=== PATIENT | female | born 1945 | race Caucasian/White ===

== ENCOUNTER 2020-02-08 09:44 | Outpatient (CLI) | payer OTHER, SELFPAY ==
--- NOTE | ~2020-02-08 | MR_ITS ---
EXAMINATION: MR lumbar spine wo con DATE: 02/08/2020 12:36 INDICATION: Low back pain. Bilateral hip pain. TECHNIQUE: Magnetic resonance imaging (MRI) of the lumbar spine was performed without intravenous con trast. Sequences included sagittal T2-weighted FSE, sagittal STIR FSE, sagittal T1-weighted FSE, and axial T2-weighted FSE. COMPARISON: CT abdomen and pelvis 09/08/2014 FINDINGS: There is artifact from a stent graft in abdominal aorta. There are cysts in the kidneys megan suring up to 4.1 cm on the left. There is 9 degrees levocurvature of lumbar spine. Vertebral body hei ghts are normal. There is mildly decreased disc height at L1-L2 and L2-L3 and severely decreased disc height from L3-L4 through L5-S1. The distal spinal cord signal intensity is normal. The conus medull dwayne is at L1-L2. The following disc levels are specifically discussed: L1-L2: The disc is bulging. There is mild bilateral facet joint osteoarthritis. There is mild bilater al neural foraminal stenosis. There is mild central canal stenosis. L2-L3: The disc is bulging. There is moderate right and mild left facet joint osteoarthritis. There i s mild bilateral neural foraminal stenosis. There is mild central canal stenosis. L3-L4: The disc is bulging with superimposed right subarticular zone extrusion. There is mild bilater al facet joint osteoarthritis. There is mild bilateral neural foraminal stenosis. There is mild centr al canal stenosis. L4-L5: The disc is bulging. There is moderate bilateral facet joint osteoarthritis. There is moderate bilateral neural foraminal stenosis. There is mild central canal stenosis. L5-S1: The disc is bulging. There is mild right and severe left facet joint osteoarthritis. There is mild right and moderate left neural foraminal stenosis. There is mild central canal stenosis. IMPRESSION: 1. Severe lumbar spondylosis. Reviewed, dictated and finalized at location A.
== END 2020-02-08 09:45 | disposition home or self-care (01) ==
PROVIDERS: PCP Emergency Medicine; Visit Provider Emergency Medicine
DX: M54.9 Dorsalgia, unspecified (principal); G89.29 Other chronic pain
CPT/HCPCS: 72148

== ENCOUNTER 2020-02-24 09:56 | Outpatient (CLI) | payer OTHER, SELFPAY ==
--- NOTE | ~2020-02-24 | MM_ITS ---
EXAMINATION: MM screening [facility] BI w zainab HISTORY: Screening mammogram TECHNIQUE: Craniocaudal and mediolateral oblique 3-D tomosynthesis images were obtained and synthetic 2-D images were generated. CAD analysis was submitted and interpreted. COMPARISON: 03/07/2019, 02/21/2019, 02/19/2018, 02/15/2017 BREAST PARENCHYMAL COMPOSITION: There are scattered areas of fibroglandular density. FINDINGS: RIGHT BREAST: There is no evidence of suspicious mass, calcification, or architectural distortion to suggest malignancy. There has been no significant interval change. LEFT BREAST: There is a possible mass in the middle third of the breast best appreciated 5 cm from th e nipple on mediolateral oblique tomosynthesis image 33/74. IMPRESSION: 1. Possible left breast mass. 2. Additional mammographic views and possible breast ultrasound are recommended. BI-RADS Category 0: Incomplete: Needs additional imaging evaluation. Reviewed, dictated and finalized at location A. IMPRESSION: 1. Possible left breast mass. 2. Additional mammographic views and possible breast ultrasound are recommended . BI-RADS Category 0: Incomplete: Needs additional imaging evaluation.
== END 2020-02-24 09:57 | disposition home or self-care (01) ==
LOC: ANHIMG 10:02
PROVIDERS: PCP Emergency Medicine; Visit Provider Emergency Medicine
DX: Z12.31 Encounter for screening mammogram for malignant neoplasm of breast (principal); R92.8 Other abnormal and inconclusive findings on diagnostic imaging of breast
CPT/HCPCS: 77063; 77067

== ENCOUNTER 2020-03-16 12:56 | Outpatient (CLI) | payer OTHER, SELFPAY ==
--- NOTE | ~2020-03-16 | MM_ITS ---
EXAMINATION: MM diagnostic mammo unilat LT HISTORY: Possible small breast mass reported in middle third of the breast 5 cm from nipple on MLO To mosynthesis image 33/74 TECHNIQUE: Additional 3-D tomosynthesis images of were performed and synthetic 2-D images were genera lg. CAD analysis was submitted and interpreted. COMPARISON: 02/24/2020 bilateral digital screening mammogram BREAST PARENCHYMAL COMPOSITION: There are scattered areas of fibroglandular density. FINDINGS: No definite reproducible mass is suggested on these supplemental views. 6 month follow-up d iagnostic left mammogram is recommended for confirmation. IMPRESSION: 1. No definite left breast mass is suggested on supplemental views 2. 6 month diagnostic left mammogram follow-up is recommended BI-RADS category 3, probably benign findings. Reviewed, dictated and finalized at location B. [employer] ACCOUNTANT
== END 2020-03-16 12:57 | disposition home or self-care (01) ==
PROVIDERS: PCP Emergency Medicine; Visit Provider Emergency Medicine
DX: R92.8 Other abnormal and inconclusive findings on diagnostic imaging of breast (principal)
CPT/HCPCS: 77065

== ENCOUNTER 2020-07-06 01:15 | Inpatient (IN) | payer OTHER, SELFPAY ==
[2020-07-06] VITALS (21 sets, daily range): BP systolic 104–130; BP diastolic 54–82; PULSE 84–129; RESP 16–30; TEMP 35.6–36.4; O2SAT 96–99; BMI 24.5
--- NOTE | 2020-07-06 | ECHO_ITS ---
Patient Info Name: Desiree Jo Age: 74 years : 1945 Gender: Female Ht: 67 in Wt: 156 lbs BSA: 1.84 m2 HR: 99 bpm BP: 124 / 82 mmHg Heart Rhythm: Sinus Rhythm Technical Quality: Good Exam Date: 07/06/2020 1:20 PM Exam Location: [facility] Patient Status: Outpatient Admit Date: 07/06/2020 Staff Ordering Physician: Gadiel Andersen MD Pipe Liner: Shereen Sy RDCS Attending Provider: Riya Rubalcava DO Referring Physician: Ganesh LEVI; Exam Type: CA echo dop color flow w con Study Info Indications I50.9 - Heart failure, unspecified Complete two-dimensional, color flow and Doppler transthoracic echocardiogram is performed with contrast to opacify the left ventricle and to improve the deliniation of the left ventricle endocardial borders. Contrast/Agitated Saline Contrast/Ag. Saline: Definity Amount: 1.00 ml Summary 1. Left ventricular chamber dimension is severely enlarged. 2. Left ventricular systolic function is severely reduced, estimated at 15-20%. 3. There is mildly increased left ventricular wall thickness. 4. The left ventricular diastolic function is grade II diastolic dysfunction. 5. Left atrial chamber dimension is severely enlarged. 6. There is moderate mitral valve regurgitation. 7. There is mild tricuspid valve regurgitation. 8. Moderate pulmonary hypertension, estimated pulmonary arterial systolic pressure is 49 mmHg. 9. There is mild pulmonic regurgitation. Left Ventricle Left ventricular chamber dimension is severely enlarged. Left ventricular systolic function is severely reduced, estimated at 15-20%. There is mildly increased left ventricular wall thickness. The left ventricular diastolic function is grade II diastolic dysfunction. Right Ventricle Right ventricular chamber dimension is normal. Right ventricular systolic function is normal. Left Atria Left atrial chamber dimension is severely enlarged. Right Atria Right atrial chamber dimension is normal. Atrial Septum Intact interatrial septum visualized by color flow imaging. Aortic Valve The aortic valve is trileaflet. There is mild aortic valve sclerosis. There is no aortic valve stenosis. There is trace aortic valve regurgitation. Pulmonic Valve The pulmonic valve is normal. There is no pulmonic valve stenosis. There is mild pulmonic regurgitation. Mitral Valve The mitral valve has normal leaflets. There is no mitral valve stenosis. There is moderate mitral valve regurgitation. Tricuspid Valve The tricuspid valve leaflets are normal. There is no significant tricuspid valve stenosis. There is mild tricuspid valve regurgitation. Moderate pulmonary hypertension, estimated pulmonary arterial systolic pressure is 49 mmHg. Pericardium/Pleural The pericardium appears normal. There is trivial pericardial effusion. Inferior Vena Cava Dilated inferior vena cava with >50% collapse upon inspiration consistent with elevated right atrial pressure, 10 mmHg. Aorta The aortic root size at the sinus of Valsalva is normal. There is mild aortic atherosclerosis. Left Ventricular Outflow Tract Name Value Normal LVOT 2D LVOT Diameter
--- NOTE | ~2020-07-06 | XR_ITS ---
EXAMINATION: XR chest 2V DATE: 07/06/2020 01:41 INDICATION: Shortness of breath TECHNIQUE: AP and lateral views of the chest are obtained. COMPARISON: 02/27/2014 FINDINGS: Cardiomegaly is noted. There is a mild diffuse interstitial pattern. Small pleural effusion s are present. There is no pneumothorax. There is moderate thoracic spondylosis. There is a partially imaged endoluminal abdominal aortic stent. IMPRESSION: 1. Cardiomegaly with mild pulmonary edema. Reviewed, dictated and finalized at location A. [employer]
--- NOTE | 2020-07-06 01:20 | ECG_ITS ---
Measurements Intervals [place] Rate: 106 P: 27 ND: 161 QRS: -23 QRSD: 114 T: 142 QT: 348 QTc: 464 Interpretive Statements SINUS TACHYCARDIA LEFT VENTRICULAR HYPERTROPHY AND ST-T CHANGE BORDERLINE R WAVE PROGRESSION, ANTERIOR LEADS BASELINE WANDER- I, III, AVR, AVL, AVF, V4-V6 ABNORMAL ECG Electronically Signed On 07-06-2020 6:54:11 [employer] OPERATOR CABLE by Gary Quiñones D.O.
[2020-07-06 01:59] LABS: Basophils Absolute Auto 0.1 K/mm3 (0.0-0.1); Basophils Percent Auto 0.9 % (0.2-1.2); Eosinophils Absolute Auto 0.2 K/mm3 (0-0.3); Eosinophils Percent Auto 2.6 % (0-4.4); Hematocrit 41.7 % (37.0-47.0); Hemoglobin 13.3 g/dL (12.0-15.0); Immature Granulocyte Absolute 0.06 K/mm3 (0.00-0.031); Immature Granulocyte Percent A 0.7 % (0-0.5); Lymphocytes Absolute Auto 3.41 K/mm3 (0.9-3.2); Mean Corpuscular HGB Conc 31.9 g/dl (32-36); Mean Corpuscular Hemoglobin 30.3 pg (26-34); Mean Platelet Volume 9.4 fl (7.4-10.4); Monocytes Absolute Auto 0.7 K/mm3 (0.1-0.6); Monocytes Percent Auto 7.2 % (2.6-8.5); Neutrophils Absolute Auto 4.8 K/mm3 (1.3-6.7); Neutrophils Percent Auto 51.6 % (45.5-73.1); Platelet Count Result 294 k/mm3 (150-375); Red Blood Count 4.39 M/mm3 (4.2-5.4); Red Cell Distribution Width 14.6 % (11.5-14.5); White Blood Count 9.2 K/mm3 (4.5-10.0)
[2020-07-06 02:04] LABS: Anion Gap 5 mmol/L (8-16); Blood Urea Nitrogen 18 mg/dL (7-17); Calcium 9.8 mg/dL (8.4-10.2); Carbon Dioxide 28 mmol/L (22-30); Chloride 108 mmol/L (98-107); Estimated CRCL calculation 49 ml/min; Estimated Glomerular Filt Rate 54; Glucose 63 mg/dL (65-105); Potassium 3.9 mmol/L (3.4-5.0); Sodium 141 mmol/L (137-145)
[2020-07-06 02:18] LABS: NT Pro B Type Natriuretic Pept 8440 PG/ML (5-100); Troponin I 0.087 ng/mL (0.000-0.034)
[2020-07-06 02:33] LABS: Partial Thromboplastin Time 28.9 SECONDS (22.3-36.8); Prothrombin Time 13.7 Seconds (11.1-14.7)
[2020-07-06] MEDS: FUROSEMIDE INJ 40 MG/4 ML VIAL IV PUSH (02:34)
[2020-07-06 03:58] LABS: Glucose Point of Care 65 (65-105)
--- NOTE | 2020-07-06 04:27 | ED.SOB ---
HPI - SOB/Dyspnea General Chief Complaint: Shortness of Breath/Dyspnea Stated Complaint: congestive heart failure, sob Time Seen by Provider: 07/06/20 01:24 History of Present Illness HPI Narrative: Patient is a 74-year-old female who presents to the ER with shortness of breath. Progressing over the last 2 weeks. No orthopnea. Reports cough that is nonproductive. She is without fevers chills or sweats. It is associated with increased edema to her lower extremities. Reports minor movements cause her to be very dyspneic. No chest pain or chest pressure. Has not found any alleviating factors. Related Data Home Medications Medication Instructions Recorded Confirmed cyclobenzaprine 10 mg tablet See Rx Instructions .ROUTE .COMPLEX 03/10/19 aspirin 81 mg tablet,delayed 81 mg PO DAILY 06/13/19 04/10/20 release sennosides 8.6 mg-docusate sodium See Rx Instructions .ROUTE .COMPLEX 06/13/19 04/10/20 50 mg tablet blood sugar diagnostic #10 each 06/19/19 04/10/20 lancets #50 each 06/19/19 04/10/20 pen needle, diabetic 31 gauge x #1,200 each 06/19/19 04/10/20 5/16 magnesium 200 mg tablet 400 mg PO DAILY tablet 09/16/19 04/10/20 cholecalciferol (vitamin D3) 50 3,000 unit PO DAILY tablet 12/30/19 04/10/20 mcg (2,000 unit) tablet Allergies Allergy/AdvReac Type Severity Reaction Status Date / Time Penicillins Allergy Unknown Verified 01/06/15 10:53 Review of Systems Review of Systems: All systems reviewed & are unremarkable except as noted in HPI and below Constitutional: Constitutional: Denies chills, Denies fever(s) and Denies weakness ENT: Denies nasal congestion and Denies sore throat Cardiovascular: Cardiovascular: Denies chest pain and Denies radiating jaw, neck or arm pain Respiratory: Respiratory: Reports cough, Reports dyspnea and Denies wheezing Gastrointestinal: Gastrointestinal: Denies abdominal pain, Denies diarrhea, Denies nausea and Denies vomiting Musculoskeletal: Musculoskeletal: Denies muscle cramps Comments: edema PMFSH Past Medical History Medical History Diabetes mellitus HLD (hyperlipidemia) HTN (hypertension) Hypothyroidism, acquired PAD (peripheral artery disease) Type 2 diabetes mellitus with hyperglycemia, with long-term current use of insulin Vitamin D deficiency, unspecified Family History Family History Father Family history of alcoholism Family history of congestive heart failure Carcinoma of colon, Onset Age: 64 Mother Family history of liver disease Family history of diabetes mellitus in first degree relative Sibling Family history of diabetes mellitus in first degree relative Other Family history of cardiovascular disease Family history of primary malignant neoplasm of liver Social History Social History Smoking packs per day: 0.5 Smoking cigarettes per day: 10.0 Years smoked: 50 Smoking pack-years: 25.00 Smoking status: Former smoker Smoking end date: 03/01/19 Alcohol intake: current Exam Narrative: Exam Narrative: GENERAL: Well-appearing, well-nourished, and in no acute distress. HEAD: Normocephalic, atraumatic. ENT: Mucous membranes moist. CHEST: Clear to auscultation rales. No respiratory distress. HEART: Regular rate and rhythm. Normal peripheral pulses. ABDOMEN: Soft, nontender, nondistended. EXTREMITIES: Normal range of motion. 2+ edema. SKIN: Warm, dry, no rash. NEURO: Alert and oriented x3. PSYCH: Normal mood and affect. Course Course Emergency Course: Admit to hospitalist service. Started diuresis. Will trend troponins. Vital Signs Vital signs: Vital Signs Temperature 97.5 F L 07/06/20 01:21 Pulse Rate 105 H 07/06/20 01:21 Respiratory Rate 30 H 07/06/20 01:21 Blood Pressure 130/76 07/06/20 01:21 Pulse Oximetry 97 07/06/20
--- NOTE | 2020-07-06 05:39 | ADMGEN ---
This patient, Desiree Jo, was admitted to IMU Room 206-01. Patient/family oriented to hospital policies and general routines including ID bracelet, bed and alarms, visiting hours, pain management, procedures, bathroom and other care routines, personal items, smoking policy, room service/diet, and visiting hours. Information on how to activate the Rapid Response Team has been discussed. Patient/Family are encouraged to report perceived risks to care and to ask questions if they do not understand what they are told or what they should do.
[2020-07-06 06:36] LABS: Troponin I 0.073 ng/mL (0.000-0.034)
--- NOTE | 2020-07-06 08:09 | PM.IMHP ---
H&P: HPI History of Present Illness Date/Time: 07/06/20 08:09 Chief Complaint: SOB Narrative: Desiree Jo is a 74 year old female with PMHx significant for AAA s/p repair, stroke with LLE weakness, t2dm, insulin dependent, HTN, PAD, claudication, peripheral diabetic neuropathy, patient presented to ED due to worsening SOB for the last 4 days or so but has been going on for a while now, dry cough, chest discomfort in the epigastric to mid sternum area at exertion, chest congestion, no near syncope, syncope, light headedness, dizziness, no orthopnea, no pnd, B/L LE ankle edema, no fevers, no rigors, no chills, no n/v/abdominal pain, no palpitations although states can't describe a feeling in her chest , no fevers, no rigors, no chills, no sputum production. Preliminary work up was significant for elevated BNP, mildly elevated Trop, chest xr showed cardiomegaly and lung edema. Review of Systems Review of Systems: Narrative: worsening sob. Constitutional: Comments: no fevers, no rigors, no chills. Eyes: Comments: no vision changes. ENT: Comments: no nasal congestion, no throat pain. Cardiovascular: Comments: sob, chest discomfort, chest congestion. Respiratory: Comments: dry cough. Gastrointestinal: Comments: no n/v/abdominal pain/diarrhea. Musculoskeletal: Comments: LLE weakness Integumentary/Breasts: Comments: no rashes Neurologic: Comments: LLE weakness from old stroke. [facility], LAT[facility] Past Medical History Medical History Diabetes mellitus HLD (hyperlipidemia) HTN (hypertension) Hypothyroidism, acquired PAD (peripheral artery disease) Type 2 diabetes mellitus with hyperglycemia, with long-term current use of insulin Vitamin D deficiency, unspecified Family History Family History Father Family history of alcoholism Family history of congestive heart failure Carcinoma of colon, Onset Age: 64 Mother Family history of liver disease Family history of diabetes mellitus in first degree relative Sibling Family history of diabetes mellitus in first degree relative Other Family history of cardiovascular disease Family history of primary malignant neoplasm of liver Social History Social History Smoking packs per day: 0.5 Smoking cigarettes per day: 10.0 Years smoked: 50 Smoking pack-years: 25.00 Smoking status: Never smoker Smoking end date: 03/01/19 Alcohol intake: never Substance use: never Substance use type: does not use Spiritual care concerns: No Meds Home Medications and Allergies Home Medications Medication Instructions Recorded Confirmed Type cyclobenzaprine 10 mg tablet 10 mg PO DAILY 03/10/19 07/06/20 History aspirin 81 mg tablet,delayed 81 mg PO DAILY 06/13/19 07/06/20 History release blood sugar diagnostic #10 each 06/19/19 07/06/20 History lancets #50 each 06/19/19 07/06/20 History pen needle, diabetic 31 gauge x #1,200 each 06/19/19 07/06/20 History 5/16 magnesium 200 mg tablet 400 mg PO DAILY tablet 09/16/19 07/06/20 History amlodipine 5 mg tablet 5 mg PO DAILY #90 tablet 01/31/20 07/06/20 Rx ascorbic acid (vitamin C) 500 mg PO DAILY 07/06/20 07/06/20 History cilostazol 100 mg PO DAILY 07/06/20 07/06/20 History cyanocobalamin (vitamin B-12) 500 mcg PO DAILY 07/06/20 07/06/20 History diphenhydramine-acetaminophen 3 tablet PO HS PRN 07/06/20 07/06/20 History [Tylenol PM Extra Strength] gabapentin 300 mg PO DAILY 07/06/20 07/06/20 History insulin asp prt-insulin aspart See Rx Instructions .ROUTE .COMPLEX 07/06/20 07/06/20 History [Novolog Mix 70-30FlexPen U-100] levothyroxine 100 mcg PO DAILY 07/06/20 07/06/20 History lisinopril 40 mg PO DAILY 07/06/20 07/06/20 History metformin 1,000 mg tablet 1,000 mg PO QAM 90 Days #90 tablet 07/06/20 07/06/20 Rx metoprolol tartrate 50 mg PO DAILY
[2020-07-06 08:11] LABS: Glucose Point of Care 139 (65-105)
[2020-07-06 08:57] LABS: Troponin I 0.071 ng/mL (0.000-0.034)
--- NOTE | 2020-07-06 09:39 | PM.CNCAR ---
Assessment and Plan Assessment and plan (1) Hypertension associated with diabetes: Code(s): E11.59 - Type 2 diabetes mellitus with other circulatory complications; I15.2 - Hypertension secondary to endocrine disorders Status: Acute Assessment and Plan: Currently at goal. Will continue lisinopril and metoprolol. Will DC amlodipine to allow for blood pressure for other additional medications. (2) Hyperlipidemia associated with type 2 diabetes mellitus: Code(s): E11.69 - Type 2 diabetes mellitus with other specified complication; E78.5 - Hyperlipidemia, unspecified Status: Acute Assessment and Plan: Will increase her rosuvastatin to 10 mg daily (3) PAD (peripheral artery disease): Code(s): I73.9 - Peripheral vascular disease, unspecified Status: Acute Assessment and Plan: Continue aspirin continue statin. Will DC cilostazol given her CHF (4) CHF exacerbation: Code(s): I50.9 - Heart failure, unspecified Status: Acute Assessment and Plan: Probably systolic in etiology although not confirmed. Will check a 2D echocardiogram with Doppler. Intake and output, daily weights. Will transition her from metoprolol tartrate to metoprolol succinate 50 mg p.o. daily because of his CHF indication. Continue lisinopril. Will reduce her IV furosemide to 40 mg IV daily. BMP in the morning. Symptoms are concerning for underlying ischemic cardiomyopathy. Will likely need a cardiac catheterization before discharge or at least an ischemic workup with a perfusion study. Will await the above test results before making that decision. (5) Intermittent claudication of both lower extremities due to atherosclerosis: Code(s): I70.213 - Atherosclerosis of [place] arteries of extremities with intermittent claudication, bilateral legs Status: Acute (6) Nonsustained ventricular tachycardia: Code(s): I47.2 - Ventricular tachycardia Status: Acute Assessment and Plan: Will check a magnesium level (7) Elevated troponin: Code(s): R77.8 - Other specified abnormalities of plasma proteins Status: Acute Assessment and Plan: CHF related versus underlying ischemia versus a combination of both. Continue aspirin, PING-inhibitor, statin, beta-salena. Eventual ischemic workup was detailed above History of Present Illness History of Present Illness Consult date/time: 07/06/20 09:39 Requesting physician: Foster Bellamy MD Consult reason: congestive heart failure Reason For Visit: chf exacerbation Narrative: Date of service 07/06/2020 History: Patient is a 74-year-old female who does have peripheral vascular disease. She has had endovascular repair of an abdominal aortic aneurysm performed by Dr. Parker. She did have a stress test in 2013 in preparation for that procedure which was normal with an ejection fraction 58%. This was personally reviewed and analyzed. She does not routinely see Cardiology. She does have a history of hypertension hyperlipidemia diabetes and hypothyroidism. She presented to the hospital because of worsening shortness of breath and chest pain. Patient describes chest pains at tightness that was across her chest and congestion. It is worsened with exertion. The chest tightness occurred for the past 3-4 days and would be worse if she laid down in also worsen with activity. It would be better if she sat up or rested. It would last for a few minutes. It did not radiate. She has been having worsening shortness of breath also for about the past month. Shortness of breath would occur by doing activities of daily living. About 9 months ago she started to notice that her left leg was heavy and dragging more than what typically would. She has had some swelling in her feet for about 4 months also. She denies any syncope, paroxysmal nocturnal dyspnea, palpitations. Her BNP was elevated at admission she was started on diuretics. She curr
[2020-07-06 09:40] LABS: Magnesium 1.6 mg/dL (1.6-2.3)
[2020-07-06] MEDS: MAGNESIUM OXIDE 400 MG TABLET PO (10:00)
[2020-07-06] MEDS: lisinopriL 20 MG TABLET 40 MG PO (10:00)
[2020-07-06] MEDS: GABAPENTIN 300 MG CAPSULE PO (10:00)
[2020-07-06] MEDS: CYANOCOBALAMIN 500 MCG TABLET PO (10:01)
[2020-07-06] MEDS: ASCORBIC ACID 500 MG TABLET PO (10:01)
[2020-07-06] MEDS: LEVOTHYROXINE SODIUM 100 MCG TABLET PO (10:01)
[2020-07-06] MEDS: ASPIRIN 81 MG ENTERIC TABLET PO (10:01)
[2020-07-06] MEDS: ROSUVASTATIN 10 MG TABLET PO (10:15)
[2020-07-06] MEDS: GLUCOSE ORAL GEL 15 GM OF GLUCSE IN 37.5 GM TUBE PO (12:09)
[2020-07-06 12:45] LABS: Glucose Point of Care 135 (65-105)
[2020-07-06 12:45] LABS: Glucose Point of Care 46 (65-105)
[2020-07-06] MEDS: PERFLUTREN LIPID MICROSPHERES 1.5 ML VIAL DILUTED TO 10 ML TOTAL VOLUME IV PUSH (13:45)
[2020-07-06 17:16] LABS: Glucose Point of Care 166 (65-105)
[2020-07-06 20:13] LABS: Glucose Point of Care 225 (65-105)
[2020-07-06 20:22] LABS: Glucose Point of Care 294 (65-105)
--- NOTE | 2020-07-06 20:32 | ECG_ITS ---
Measurements Intervals [place] Rate: 126 P: -56 CT: 162 QRS: -24 QRSD: 111 T: 133 QT: 322 QTc: 466 Interpretive Statements SUPRAVENTRICULAR TACHYCARDIA, CONSIDER JUNCTIONAL TACHYCARDIA INTRAVENTRICULAR CONDUCTION DELAY DELAYED PRECORDIAL R/S TRANSITION VOLTAGE CRITERIA FOR LVH ST-T WAVE ABNORMALITY IN HIGH LATERAL LEADS- CONSIDER ISCHEMIA ABNORMAL ECG Electronically Signed On 07-07-2020 7:09:25 QUARRYMAN by Gary Quiñones D.O.
[2020-07-06] MEDS: METOPROLOL TARTRATE 50 MG TAB PO (21:31)
[2020-07-07] VITALS (17 sets, daily range): BP systolic 102–144; BP diastolic 66–96; PULSE 87–106; RESP 16–23; TEMP 36.2–36.7; O2SAT 96–100
[2020-07-07 00:45] LABS: Glucose Point of Care 244 (65-105)
[2020-07-07] MEDS: LEVOTHYROXINE SODIUM 100 MCG TABLET PO (06:32)
[2020-07-07 06:39] LABS: Glucose Point of Care 164 (65-105)
[2020-07-07 08:01] LABS: Basophils Absolute Auto 0.1 K/mm3 (0.0-0.1); Basophils Percent Auto 0.9 % (0.2-1.2); Eosinophils Absolute Auto 0.2 K/mm3 (0-0.3); Eosinophils Percent Auto 2.6 % (0-4.4); Hematocrit 43.9 % (37.0-47.0); Hemoglobin 14.1 g/dL (12.0-15.0); Immature Granulocyte Absolute 0.03 K/mm3 (0.00-0.031); Immature Granulocyte Percent A 0.4 % (0-0.5); Lymphocytes Percent Auto 28.4 % (18.3-44.2); Mean Corpuscular HGB Conc 32.1 g/dl (32-36); Mean Corpuscular Hemoglobin 30.1 pg (26-34); Mean Corpuscular Volume 93.6 fl (80-100); Mean Platelet Volume 9.4 fl (7.4-10.4); Monocytes Absolute Auto 0.6 K/mm3 (0.1-0.6); Monocytes Percent Auto 7.3 % (2.6-8.5); Neutrophils Absolute Auto 4.7 K/mm3 (1.3-6.7); Neutrophils Percent Auto 60.4 % (45.5-73.1); Platelet Count Result 290 k/mm3 (150-375); Red Blood Count 4.69 M/mm3 (4.2-5.4); Red Cell Distribution Width 14.7 % (11.5-14.5); White Blood Count 7.8 K/mm3 (4.5-10.0)
[2020-07-07 08:05] LABS: Glucose Point of Care 167 (65-105)
[2020-07-07 08:10] LABS: Alanine Aminotransferase 31 U/L (4-35); Albumin Level 4.3 g/dL (3.5-5.1); Alkaline Phosphatase 108 U/L (38-126); Anion Gap 8 mmol/L (8-16); Aspartate Amino Transferase 27 U/L (14-36); Bilirubin,Total 0.6 mg/dL (0.2-1.3); Blood Urea Nitrogen 19 mg/dL (7-17); Calcium 9.6 mg/dL (8.4-10.2); Carbon Dioxide 27 mmol/L (22-30); Chloride 105 mmol/L (98-107); Cholesterol 205 mg/dL (0-200); Estimated CRCL calculation 43 ml/min; Estimated Glomerular Filt Rate 54; Glucose 182 mg/dL (65-105); HDL Direct 36 mg/dL; Magnesium 1.7 mg/dL (1.6-2.3); Phosphorus 3.3 mg/dL (2.5-4.5); Potassium 4.2 mmol/L (3.4-5.0); Sodium 140 mmol/L (137-145); Triglycerides 136 mg/dL (<150)
[2020-07-07 08:21] LABS: LDL Cholesterol Direct 135 mg/dL
[2020-07-07] MEDS: ASPIRIN 81 MG ENTERIC TABLET PO (08:36)
[2020-07-07] MEDS: GABAPENTIN 300 MG CAPSULE PO (08:36)
[2020-07-07] MEDS: ROSUVASTATIN 10 MG TABLET PO (08:36)
[2020-07-07] MEDS: lisinopriL 20 MG TABLET 40 MG PO (08:36)
[2020-07-07] MEDS: MAGNESIUM OXIDE 400 MG TABLET PO (08:36)
[2020-07-07] MEDS: ASCORBIC ACID 500 MG TABLET PO (08:36)
[2020-07-07] MEDS: METOPROLOL SUCCINATE EXT REL 50 MG TABCR PO (08:36)
[2020-07-07] MEDS: CYANOCOBALAMIN 500 MCG TABLET PO (08:36)
[2020-07-07 08:59] LABS: Hemoglobin A1C 8.1 % (<5.7)
[2020-07-07 10:30] LABS: Free T4 Free Thyroxine Reflex 1.43 ng/dL (0.78-2.19)
--- NOTE | 2020-07-07 10:30 | PM.PNCARD ---
Progress Note: A&P Assessment and Plan (1) Acute CHF (congestive heart failure): Code(s): I50.9 - Heart failure, unspecified Status: Acute Assessment and Plan: Patient presented with acute CHF with reduced ejection fraction, LVEF 15-20%. Patient has had modest improvement in her shortness of breath. On physical examination, she still has some volume overload, and remains orthopneic. -continue beta salena, Isra inhibitor. Consider switching ACEI to ARNI -continue aspirin, statin -patient will need ischemic evaluation. Once patient is euvolemic, she will undergo cardiac catheterization to rule out significant obstructive CAD during this hospitalization. Tentatively scheduled for tomorrow. -continue to monitor on telemetry Subjective Date/time seen: 07/07/20 10:30 Date of service-07/07/2020 Chief complaint: Shortness of breath Interval history: Patient states that she still feels short of breath, although her dyspnea has improved with diuresis. She reports mild lower extremity swelling, predominantly in the left lower extremity. Patient states that she is very anxious, and feels sick to her stomach . Exam Narrative: Exam Narrative: PHYSICAL EXAMINATION: GENERAL: Alert, oriented, no acute distress MENTAL STATUS: Anxious EYES: Extraocular movements intact, no pallor EARS: External ears appear normal, hearing grossly normal NOSE: Normal and patent, no discharge MOUTH: Mucous membranes moist, tongue normal NECK: Supple, JVD CHEST: Scattered crackles at base HEART: Normal rate, regular rhythm, normal S1 and S2, S3 gallop ABDOMEN: Soft, nontender NEUROLOGICAL: Alert, oriented, normal speech, no gross motor deficits MUSCULOSKELETAL: No major deformity, no amputation EXTREMITIES: Trace pedal edema, no clubbing, no cyanosis SKIN: no rash on the exposed area, no cyanosis PSYCHIATRIC: Anxious Objective Data Vital Signs Vital Signs: Vital Signs - 24 hr 07/06/20 12:00 07/06/20 12:05 07/06/20 14:00 Temperature 35.9 C L Pulse Rate 104 H 107 H 101 H Respiratory Rate 18 Blood Pressure 124/82 Pulse Oximetry 99 07/06/20 16:00 07/06/20 17:32 07/06/20 18:00 Temperature 36.0 C L Pulse Rate 110 H 93 104 H Respiratory Rate 20 Blood Pressure 110/61 Pulse Oximetry 99 07/06/20 19:20 07/06/20 20:00 07/06/20 20:48 Temperature 36.4 C Pulse Rate 104 H 129 H 108 H Respiratory Rate 22 H Blood Pressure 125/73 109/64 Pulse Oximetry 97 07/06/20 21:31 07/06/20 21:38 07/07/20 00:00 Temperature 36.2 C L Pulse Rate 108 H 105 H 103 H Respiratory Rate 16 Blood Pressure 106/67 Pulse Oximetry 97 07/07/20 01:56 07/07/20 04:00 07/07/20 06:00 Temperature 36.4 C Pulse Rate 96 90 100 Respiratory Rate 16 Blood Pressure 102/94 H Pulse Oximetry 98 07/07/20 08:00 07/07/20 08:08 07/07/20 08:36 Temperature 36.5 C Pulse Rate 103 H 106 H 98 Respiratory Rate 20 Blood Pressure 144/96 H Pulse Oximetry 100 07/07/20 10:00 Temperature Pulse Rate 98 Respiratory Rate Blood Pressure Pulse Oximetry Intake/Output Intake/Output: Intake & Output 07/04/20 07/05/20 07/06/20 07/07/20 23:59 23:59 23:59 23:59 Intake Total 1290 Output Total 300 400 Balance 990 -400 Meds/Results Medications: Active Medications Generic Name Dose Route Start Last Admin Trade Name Freq PRN Reason Stop Dose Admin Acetaminophen 650 mg 07/06/20 04:28 Acetaminophen 325 Mg Tablet PO Q4H PRN Mild Pain (1-3) or Fever Hydrocodone Bitart/Acetaminophen 1 tab 07/06/20 04:28 Hydrocodone/Acetaminophen (*Crx) 5-325 Mg Tablet PO Q4H PRN Pain Rated 4-6 Ascorbic Acid 500 mg 07/06/20 09:00 07/07/20 08:36 Ascorbic Acid 500 Mg Tablet PO 500 mg DAILY KIARRA Administration Aspirin 81 mg 07/06/20 09:00 07/07/20 08:36 Aspirin 81 Mg Enteric Tablet PO 81 mg DAILY KIARRA Administration Cyanocobalamin 500 mcg
[2020-07-07 11:19] LABS: Total Triiodothyronine (T3) 1.21 NG/ML (0.97-1.69)
[2020-07-07] MEDS: FUROSEMIDE INJ 40 MG/4 ML VIAL IV PUSH (11:34)
[2020-07-07 12:31] LABS: Glucose Point of Care 232 (65-105)
[2020-07-07] MEDS: INSULIN ASPART (*BKC) 100 UNITS/ML SUB-Q (13:06)
--- NOTE | 2020-07-07 16:49 | PM.IMPN ---
Progress Note: A&P Assessment and Plan (1) Acute CHF (congestive heart failure): Code(s): I50.9 - Heart failure, unspecified Status: Acute Assessment and Plan: Shazia presents with SOB. BNP 8440 and CXR showing CMG and pulmonary edema. Started on Lasix IV. UOP does not seem to be accurate. Echo showing EF 15-20% with Grade II diastolic dysfunction and moderate MR and moderate pulmonary HTN (49). BP stable and Cr normal. Continue IV diuretics. Continue Lisinopril and Toprol XL. Consider adding Spironolactone. Consider changing ACEI to Entresto. Appreciate Cardiology input. Daily weights. (2) Elevated troponin: Code(s): R77.8 - Other specified abnormalities of plasma proteins Status: Acute Assessment and Plan: Troponin to 0.087 and flat. [place] related to the acute CHF. EKG however showing poor R wave progression and T wave changes in the lateral leads. Continue ASA, Metoprolol and Crestor. [facility] planned for tomorrow. (3) Type 2 diabetes mellitus with hyperglycemia, with long-term current use of insulin: Code(s): E11.65 - Type 2 diabetes mellitus with hyperglycemia; Z79.4 - nursing home (current) use of insulin Status: Acute Assessment and Plan: The patient's blood glucose was reviewed on 07/07 Glucose remains reasonably well controlled. Metformin remains on hold. Continue AccuCheks covering with sliding scale. Hypoglycemia protocol available as needed. Hold 70/30 tonight since NPO for [facility] tomorrow. (4) Nonsustained ventricular tachycardia: Code(s): I47.2 - Ventricular tachycardia Status: Acute Assessment and Plan: Noted on tele. Mag 1.7. Will replace. Follow. Contineu tele (5) PAD (peripheral artery disease): Code(s): I73.9 - Peripheral vascular disease, unspecified Status: Acute Assessment and Plan: Patient is status post AAA repair. She is on cilostazol but this is on hold. Resume when okay with cardiology. Continue aspirin and statin therapy. Monitor blood pressure closely. (6) HTN (hypertension): Code(s): I10 - Essential (primary) hypertension Status: Acute Assessment and Plan: A1c 8.1. Patient's blood pressure was reviewed on 07/07 Blood pressure remains well controlled. Will continue current medications. (7) HLD (hyperlipidemia): Code(s): E78.5 - Hyperlipidemia, unspecified Status: Acute Assessment and Plan: TC 205. TG 135. LDL 135 and HDL 36. Crestor added. LFTs okay. Continue the same. (8) History of CVA (cerebrovascular accident): Code(s): Z86.73 - Personal history of transient ischemic attack (TIA), and cerebral infarction without residual deficits Status: Acute Assessment and Plan: Shazia has hx of CVA and feels weak but has been able to be out of bed to ambulate to the BR. Will order PT/OT evaluation. (9) DVT prophylaxis: Code(s): Z29.9 - Encounter for prophylactic measures, unspecified Status: Acute Assessment and Plan: SCDs. Subjective Date/time seen: 07/07/20 16:49 Interval history: Date of service 07/07 74yo female with DM, PAD and HTN here for CHF exacerbation. SOB much better. No CP. Slept well today. Eating okay. No pain in legs when walking. She states she has had a CVA in the past with residual left sided weakness. She has been very weak recently. Exam Narrative: Exam Narrative: AF 98.1 143/79 93 22 99% ra Gen - NARD Chest - CTA bilaterally, nml RR CV - RRR S1/S2; Tele showing 10beat run of NSVT Abd - Soft, NT/ND, Positive BS Ext - trace pedal edema Psych - anxious mood Skin - Warm and dry Objective Data Vital Signs Vital Signs: Vital Signs - 24 hr 07/06/20 17:32 07/06/20 18:00 07/06/20 19:20 Temperature 96.8 F L 97.6 F Pulse Rate 93 104 H 104 H Respiratory Rate 20 22 H Blood Pressure 110/61 125/73 Pulse Oximetry 99 97 07/06/20 20:00 03/0
[2020-07-07 17:12] LABS: Glucose Point of Care 67 (65-105)
[2020-07-07] MEDS: MAGNESIUM SULF 2 GM/WATER 50ML 2 GM/50 ML BAG IVPB (18:58)
[2020-07-07 20:21] LABS: Glucose Point of Care 228 (65-105)
[2020-07-08] VITALS (29 sets, daily range): BP systolic 110–168; BP diastolic 64–81; PULSE 88–110; RESP 14–23; TEMP 35.9–36.8; O2SAT 95–100
[2020-07-08 04:41] LABS: Basophils Absolute Auto 0.1 K/mm3 (0.0-0.1); Basophils Percent Auto 0.8 % (0.2-1.2); Eosinophils Absolute Auto 0.2 K/mm3 (0-0.3); Eosinophils Percent Auto 2.6 % (0-4.4); Hematocrit 39.7 % (37.0-47.0); Immature Granulocyte Absolute 0.02 K/mm3 (0.00-0.031); Immature Granulocyte Percent A 0.3 % (0-0.5); Lymphocytes Absolute Auto 2.28 K/mm3 (0.9-3.2); Lymphocytes Percent Auto 30.1 % (18.3-44.2); Mean Corpuscular HGB Conc 32.7 g/dl (32-36); Mean Corpuscular Hemoglobin 30.4 pg (26-34); Mean Corpuscular Volume 92.8 fl (80-100); Mean Platelet Volume 9.3 fl (7.4-10.4); Monocytes Absolute Auto 0.5 K/mm3 (0.1-0.6); Monocytes Percent Auto 6.7 % (2.6-8.5); Neutrophils Absolute Auto 4.5 K/mm3 (1.3-6.7); Neutrophils Percent Auto 59.5 % (45.5-73.1); Platelet Count Result 271 k/mm3 (150-375); Red Blood Count 4.28 M/mm3 (4.2-5.4); Red Cell Distribution Width 14.5 % (11.5-14.5); White Blood Count 7.6 K/mm3 (4.5-10.0)
[2020-07-08 05:06] LABS: Albumin Level 3.8 g/dL (3.5-5.1); Anion Gap 7 mmol/L (8-16); Blood Urea Nitrogen 22 mg/dL (7-17); Carbon Dioxide 29 mmol/L (22-30); Chloride 103 mmol/L (98-107); Estimated CRCL calculation 43 ml/min; Estimated Glomerular Filt Rate 54; Glucose 151 mg/dL (65-105); Magnesium 2.1 mg/dL (1.6-2.3); Phosphorus 3.1 mg/dL (2.5-4.5); Potassium 3.6 mmol/L (3.4-5.0); Sodium 139 mmol/L (137-145)
[2020-07-08] MEDS: LEVOTHYROXINE SODIUM 100 MCG TABLET PO (05:45)
[2020-07-08 08:09] LABS: Glucose Point of Care 217 (65-105)
[2020-07-08] MEDS: METOPROLOL SUCCINATE EXT REL 50 MG TABCR PO (08:44)
[2020-07-08] MEDS: GABAPENTIN 300 MG CAPSULE PO (08:44)
[2020-07-08] MEDS: MAGNESIUM OXIDE 400 MG TABLET PO (08:44)
[2020-07-08] MEDS: ROSUVASTATIN 10 MG TABLET PO (08:44)
[2020-07-08] MEDS: ASPIRIN 81 MG ENTERIC TABLET PO (08:44)
--- NOTE | 2020-07-08 09:30 | WPDMODSED ---
Moderate Sedation Note-Pt Data Patient Data Diagnosis: Congestive heart failure with newly diagnosed left ventricular systolic dysfunction history of hypertension diabetes and dyslipidemia history of aortic aneurysm stenting Present Complaint: shortness of breath Procedure to be performed/Plan: left heart catheterization Allergies Allergy/AdvReac Type Severity Reaction Status Date / Time Penicillins Allergy Unknown Verified 01/06/15 10:53 Home Medications Medication Instructions Recorded Confirmed Type cyclobenzaprine 10 mg tablet 10 mg PO DAILY 03/10/19 07/06/20 History aspirin 81 mg tablet,delayed 81 mg PO DAILY 06/13/19 07/06/20 History release blood sugar diagnostic #10 each 06/19/19 07/06/20 History lancets #50 each 06/19/19 07/06/20 History pen needle, diabetic 31 gauge x #1,200 each 06/19/19 07/06/20 History / magnesium 200 mg tablet 400 mg PO DAILY tablet 09/16/19 07/06/20 History amlodipine 5 mg tablet 5 mg PO DAILY #90 tablet 01/31/20 07/06/20 Rx ascorbic acid (vitamin C) 500 mg PO DAILY 07/06/20 07/06/20 History cilostazol 100 mg PO DAILY 07/06/20 07/06/20 History cyanocobalamin (vitamin B-12) 500 mcg PO DAILY 07/06/20 07/06/20 History diphenhydramine-acetaminophen 3 tablet PO HS PRN 07/06/20 07/06/20 History [Tylenol PM Extra Strength] gabapentin 300 mg PO DAILY 07/06/20 07/06/20 History insulin asp prt-insulin aspart See Rx Instructions .ROUTE .COMPLEX 07/06/20 07/06/20 History [Novolog Mix 70-30FlexPen U-100] levothyroxine 100 mcg PO DAILY 07/06/20 07/06/20 History lisinopril 40 mg PO DAILY 07/06/20 07/06/20 History metformin 1,000 mg tablet 1,000 mg PO QAM 90 Days #90 tablet 07/06/20 07/06/20 Rx metoprolol tartrate 50 mg PO DAILY 07/06/20 07/06/20 History Current Medications: Active Medications Acetaminophen (Acetaminophen 325 Mg Tablet) 650 mg PO Q4H PRN PRN Reason: Mild Pain (1-3) or Fever Hydrocodone Bitart/Acetaminophen (Hydrocodone/Acetaminophen (*Crx) 5-325 Mg Tablet) 1 tab PO Q4H PRN PRN Reason: Pain Rated 4-6 Ascorbic Acid (Ascorbic Acid 500 Mg Tablet) 500 mg PO DAILY [facility] Last Admin: 07/07/20 08:36 Dose: 500 mg Documented by: Aspirin (Aspirin 81 Mg Enteric Tablet) 81 mg PO DAILY [facility] Last Admin: 07/08/20 08:44 Dose: 81 mg Documented by: Cyanocobalamin (Cyanocobalamin 500 Mcg Tablet) 500 mcg PO DAILY [facility] Last Admin: 07/07/20 08:36 Dose: 500 mcg Documented by: Dextrose (Dextrose 50% 25 Gm/50 Ml Syringe) 12.5 gm IV PUSH PRN PRN; Protocol PRN Reason: Hypoglycemia Furosemide (Furosemide Inj 40 Mg/4 Ml Vial) 40 mg IV PUSH DAILY [facility] Last Admin: 07/07/20 11:34 Dose: 40 mg Documented by: Gabapentin (Gabapentin 300 Mg Capsule) 300 mg PO DAILY [facility] Last Admin: 07/08/20 08:44 Dose: 300 mg Documented by: Glucagon (Glucagon For Inj 1 Mg Vial) 1 mg IM PRN PRN; Protocol PRN Reason: Hypoglycemia Glucose (Glucose Oral Gel 15 Gm Of Glucse In 37.5 Gm Tube) 15 gm PO PRN PRN; Protocol PRN Reason: Hypoglycemia Last Admin: 07/06/20 12:09 Dose: 15 gm Documented by: Dextrose (Dextrose 5% 1,000 Ml) 1,000 mls @ 100 mls/hr IVPB PRN PRN; Protocol PRN Reason: Hypoglycemia Insulin Aspart (Insulin Aspart (*Bkc) 100 Units/Ml) 2 - 5 units SUB-Q TIDWM [facility]; Protocol Last Admin: 07/08/20 08:48 Dose: Not Given Documented by: Insulin Aspart (Insuln Asp Prt/Insulin Aspart 100 Units/MlNovolog Mix(*Bkc)) 32 units SUB-Q DAILY@0800 [facility] Last Admin: 07/08/20 08:45 Dose: Not Given Documented by: Insulin Aspart (Insuln Asp Prt/Insulin Aspart 100 Units/MlNovolog Mix(*Bkc)) 30 units SUB-Q DAILY@1700 [facility] Last Admin: 07/07/20 18:56 Dose: Not Given Documented by: Levothyroxine Sodium (Levothyroxine Sodium 100 Mcg Tablet) 100 mcg PO DAILY@0630 [facility] Last Admin: 07/08/20 05:45 Dose: 100 mcg Documented by: Lisinopril (Lisinopril 20 Mg Tablet) 40 mg PO DAILY [facility] Last Admin: 07/07/20 08:36 Dose: 40 mg Documented by: Magnesium Oxide (Magnesium Oxide 400 Mg Tablet) 4
--- NOTE | 2020-07-08 09:35 | PC.NURSE ---
Patient to cardiac director of cardiac cath lab via stretcher.
--- NOTE | 2020-07-08 09:40 | WPDMODSED ---
Moderate Sedation Note-Pt Data Patient Data Diagnosis: newly diagnosed systolic heart failure with cardiomyopathy history of hypertension and abdominal aortic aneurysm stenting in the past Present Complaint: dyspnea Procedure to be performed/Plan: coronary angiography Allergies Allergy/AdvReac Type Severity Reaction Status Date / Time Penicillins Allergy Unknown Verified 01/06/15 10:53 Home Medications Medication Instructions Recorded Confirmed Type cyclobenzaprine 10 mg tablet 10 mg PO DAILY 03/10/19 07/06/20 History aspirin 81 mg tablet,delayed 81 mg PO DAILY 06/13/19 07/06/20 History release blood sugar diagnostic #10 each 06/19/19 07/06/20 History lancets #50 each 06/19/19 07/06/20 History pen needle, diabetic 31 gauge x #1,200 each 06/19/19 07/06/20 History /16 magnesium 200 mg tablet 400 mg PO DAILY tablet 09/16/19 07/06/20 History amlodipine 5 mg tablet 5 mg PO DAILY #90 tablet 01/31/20 07/06/20 Rx ascorbic acid (vitamin C) 500 mg PO DAILY 07/06/20 07/06/20 History cilostazol 100 mg PO DAILY 07/06/20 07/06/20 History cyanocobalamin (vitamin B-12) 500 mcg PO DAILY 07/06/20 07/06/20 History diphenhydramine-acetaminophen 3 tablet PO HS PRN 07/06/20 07/06/20 History [Tylenol PM Extra Strength] gabapentin 300 mg PO DAILY 07/06/20 07/06/20 History insulin asp prt-insulin aspart See Rx Instructions .ROUTE .COMPLEX 07/06/20 07/06/20 History [Novolog Mix 70-30FlexPen U-100] levothyroxine 100 mcg PO DAILY 07/06/20 07/06/20 History lisinopril 40 mg PO DAILY 07/06/20 07/06/20 History metformin 1,000 mg tablet 1,000 mg PO QAM 90 Days #90 tablet 07/06/20 07/06/20 Rx metoprolol tartrate 50 mg PO DAILY 07/06/20 07/06/20 History Current Medications: Active Medications Acetaminophen (Acetaminophen 325 Mg Tablet) 650 mg PO Q4H PRN PRN Reason: Mild Pain (1-3) or Fever Hydrocodone Bitart/Acetaminophen (Hydrocodone/Acetaminophen (*Crx) 5-325 Mg Tablet) 1 tab PO Q4H PRN PRN Reason: Pain Rated 4-6 Ascorbic Acid (Ascorbic Acid 500 Mg Tablet) 500 mg PO DAILY [facility] Last Admin: 07/07/20 08:36 Dose: 500 mg Documented by: Aspirin (Aspirin 81 Mg Enteric Tablet) 81 mg PO DAILY [facility] Last Admin: 07/08/20 08:44 Dose: 81 mg Documented by: Cyanocobalamin (Cyanocobalamin 500 Mcg Tablet) 500 mcg PO DAILY [facility] Last Admin: 07/07/20 08:36 Dose: 500 mcg Documented by: Dextrose (Dextrose 50% 25 Gm/50 Ml Syringe) 12.5 gm IV PUSH PRN PRN; Protocol PRN Reason: Hypoglycemia Furosemide (Furosemide Inj 40 Mg/4 Ml Vial) 40 mg IV PUSH DAILY [facility] Last Admin: 07/07/20 11:34 Dose: 40 mg Documented by: Gabapentin (Gabapentin 300 Mg Capsule) 300 mg PO DAILY [facility] Last Admin: 07/08/20 08:44 Dose: 300 mg Documented by: Glucagon (Glucagon For Inj 1 Mg Vial) 1 mg IM PRN PRN; Protocol PRN Reason: Hypoglycemia Glucose (Glucose Oral Gel 15 Gm Of Glucse In 37.5 Gm Tube) 15 gm PO PRN PRN; Protocol PRN Reason: Hypoglycemia Last Admin: 07/06/20 12:09 Dose: 15 gm Documented by: Dextrose (Dextrose 5% 1,000 Ml) 1,000 mls @ 100 mls/hr IVPB PRN PRN; Protocol PRN Reason: Hypoglycemia Insulin Aspart (Insulin Aspart (*Bkc) 100 Units/Ml) 2 - 5 units SUB-Q TIDWM [facility]; Protocol Last Admin: 07/08/20 08:48 Dose: Not Given Documented by: Insulin Aspart (Insuln Asp Prt/Insulin Aspart 100 Units/MlNovolog Mix(*Bkc)) 32 units SUB-Q DAILY@0800 [facility] Last Admin: 07/08/20 08:45 Dose: Not Given Documented by: Insulin Aspart (Insuln Asp Prt/Insulin Aspart 100 Units/MlNovolog Mix(*Bkc)) 30 units SUB-Q DAILY@1700 [facility] Last Admin: 07/07/20 18:56 Dose: Not Given Documented by: Levothyroxine Sodium (Levothyroxine Sodium 100 Mcg Tablet) 100 mcg PO DAILY@0630 [facility] Last Admin: 07/08/20 05:45 Dose: 100 mcg Documented by: Lisinopril (Lisinopril 20 Mg Tablet) 40 mg PO DAILY [facility] Last Admin: 07/07/20 08:36 Dose: 40 mg Documented by: Magnesium Oxide (Magnesium Oxide 400 Mg Tablet) 400 mg PO DAILY [facility] Last Admin: 07/08/20 08:44 Dose: 40
--- NOTE | 2020-07-08 10:20 | WPDCARDPROC ---
Cardiac Cath Procedure Note Date of procedure:: 07/08/20 Performing physician:: Mariano Weston MD Indication:: left ventricular systolic dysfunction of new diagnosis in a patient with risk factors for coronary disease Brief clinical history:: this is a 74-year-old woman presenting with congestive heart failure. She has a history of significant vascular disease including an aortic stent in the past. She has been treated medically and has improved. Left echocardiogram demonstrates relatively severe left ventricular systolic dysfunction. Procedure Procedure performed:: Coronary angiogram left ventriculogram Sedation/Medication given:: fentanyl 50 mg Versed 2 mg case start time 954 case end time 10:15 a.m. sedation provided by Martha Clarke RN, trained observer Access site:: right femoral artery Estimated blood loss:: 15-20 cc Procedure note:: patient was taken to the cardiac catheterization lab in the postabsorptive state where the right femoral triangle was prepared and draped fashion. Anesthesia was provided with 1% lidocaine infiltrated locally. Using the modified Seldinger technique a 5 Barbadian sheath was placed into the right femoral artery. After this left heart catheterization was carried out. I used a 5 Barbadian FL4 catheter to engage and inject the left coronary artery in multiple projections. Because of the presence of previous stent in the aorta I performed all catheter exchanges after this over a guidewire. The right coronary was then engaged and injected using a standard 5 Barbadian JR4 catheter. After this a 5 Barbadian angled pigtail catheter was used to measure left-sided hemodynamics and to inject the LV g in the are AO projection. After this case was terminated. The patient was taken to the holding area for manual sheath removal there were no signs of any procedural complications. She left the labor utilization superintendent with no evidence of a groin hematoma. Findings:: Hemodynamics: Central aortic pressure is 126/54 left ventricle 126/6 end-diastolic pressure 18 is no systolic gradient on pullback across the aortic valve. Left ventricle: The LV is markedly dilated there is severe global hypokinesia in all segments the global left ventricular ejection fraction visually estimated to be 15%. The left main coronary artery is nicely patent. The LAD is a medium caliber artery extending down to around the apex the proximal segment of the LAD is mildly diseased with mild luminal irregularities but no flow-limiting lesions are seen. Circumflex is a medium caliber artery that is fairly long providing the marginal branches. The circumflex system has proximal stenosis of approximately 80%. In some views there appears that there may be some bridging collaterals involved in this area as well. There is WILLIAM 3 flow in the circumflex however the right coronary artery is moderate to large in caliber and dominant to the posterior circulation there is proximal 50% stenosis in the RCA in the 1st portion there also is mild 30-40% stenosis in the 2nd portion of the artery. The remainder of the right coronary is free of angiographic abnormalities. Conclusion:: 1. Right coronary dominant circulation with angiographically single-vessel disease involving a significant stenosis in the proximal circumflex which is certainly not enough disease to explain global systolic left ventricular dysfunction. 2. Mild plaquing in the proximal LAD as well as mild non flow-limiting stenosis in the proximal mid RCA 3. left ventricular dilatation with profound global systolic dysfunction 4. global cardiomyopathy which appears to be out of proportion to the degree of coronary artery disease that is present. Mariano Weston MD FACC
--- NOTE | 2020-07-08 12:35 | PC.NURSE ---
Patient returned to room following cardiac cath. Report received from SANDRA Esqueda.
[2020-07-08] MEDS: SODIUM CHLORIDE 0.9% IV 1,000 ML 125 ML IV CONT (12:45)
[2020-07-08 12:46] LABS: Glucose Point of Care 154 (65-105)
--- NOTE | 2020-07-08 15:44 | PM.IMPN ---
Progress Note: A&P Assessment and Plan (1) Acute CHF (congestive heart failure): Code(s): I50.9 - Heart failure, unspecified Status: Acute (2) Elevated troponin: Code(s): R77.8 - Other specified abnormalities of plasma proteins Status: Acute (3) Type 2 diabetes mellitus with hyperglycemia, with long-term current use of insulin: Code(s): E11.65 - Type 2 diabetes mellitus with hyperglycemia; Z79.4 - long term acute care registered nurse (current) use of insulin Status: Acute (4) Nonsustained ventricular tachycardia: Code(s): I47.2 - Ventricular tachycardia Status: Acute (5) PAD (peripheral artery disease): Code(s): I73.9 - Peripheral vascular disease, unspecified Status: Acute (6) HTN (hypertension): Code(s): I10 - Essential (primary) hypertension Status: Acute (7) HLD (hyperlipidemia): Code(s): E78.5 - Hyperlipidemia, unspecified Status: Acute (8) History of CVA (cerebrovascular accident): Code(s): Z86.73 - Personal history of transient ischemic attack (TIA), and cerebral infarction without residual deficits Status: Acute (9) DVT prophylaxis: Code(s): Z29.9 - Encounter for prophylactic measures, unspecified Status: Acute Assessment and Plan: # Acute congestive heart failure: BNP 8440. CXR with CMG and pulmonary edema. started on iv lasix. ECHo with EF 15-20% with grade II diastolic dysfunction and mdoerate MR and modeerate pumonary HTN (49). lisionpril and torprol XL. cardiology on board. # Elevted Tropoin: troponin to 0.087 and flat. felt to be related toa cute CHF. ekg with poor R wave progression and T wave chagnes in tracey lateral leads. contineu aspirin, metopolol and crestor. s/p [facility] 07/08/2020: RCA dominant circulation wtih single vessel dsiase involving signifciant stenosis in proximal circumflex, mild plaquing in the proximal LAD, mild non flow limiting stenosis in proximal mid RCA # cardiomyopathy: new. # type 2 DM with detention currnet use of insulin: accucheck and protocol ssi # NSVT: noted on tele. mg low. replaced. no further episode reported. monitor on telemetry # PAD: s/p AAA repair. on cilosatazol. resume. contineu aspirin and statin. # HTN:home meds # HLP: home emds # hx of CVA without residual deficits: aspirin, statin # DVT proph: SCDs, Subjective Date/time seen: 07/08/20 15:44 Interval history: 74yo female with DM, PAD and HTN here for CHF exacerbation. she is feelig well. no new complaints. she jsut came back from [facility]. she is wanting to drink something. she does not like the lasix she is getting. no abdominal pain, nausea, vomiting. Review of Systems Constitutional: Constitutional: Denies fatigue and Denies weakness Eyes: Eyes: Denies blurry vision and Denies photophobia ENT: Denies epistaxis and Denies nasal congestion Cardiovascular: Cardiovascular: Denies chest pain and Denies diaphoresis Respiratory: Respiratory: Denies cough, Denies dyspnea and Reports dyspnea on exertion Gastrointestinal: Gastrointestinal: Denies abdominal pain, Denies diarrhea, Denies nausea and Denies vomiting Genitourinary: Genitourinary: Denies hematuria and Denies flank pain Musculoskeletal: Musculoskeletal: Denies back pain and Denies neck pain Integumentary/Breasts: Skin/Breast: Denies dry skin and Denies rash Neurologic: Denies Abnormal speech present and Denies abnormal gait Psychiatric: Psychiatric: Denies anxiety and Denies behavioral changes Exam Narrative: Exam Narrative: General: no acute distress, alert, awake, tired appearing alert and oriented x3 HENMT: Head: normal to inspection and normocephalic Ears: hearing grossly normal bilaterally General nose exam: Normal external nose present Face and sinus: normal facial exam Eyes: PERRLA, EOMs intact bilaterally Neck: Neck: no lymphadenopathy, supple and no JVD Resp: Auscultation: diminished breath sounds bialtelaly, not in respiratory distr
[2020-07-08 15:53] LABS: Glucose Point of Care 223 (65-105)
[2020-07-08] MEDS: CYANOCOBALAMIN 500 MCG TABLET PO (16:01)
[2020-07-08] MEDS: ASCORBIC ACID 500 MG TABLET PO (16:01)
[2020-07-08] MEDS: FUROSEMIDE INJ 40 MG/4 ML VIAL IV PUSH (16:01)
[2020-07-08 20:23] LABS: Glucose Point of Care 276 (65-105)
[2020-07-08] MEDS: MELATONIN 3 MG TABLET PO (22:27)
[2020-07-09] VITALS (7 sets, daily range): BP systolic 94–126; BP diastolic 64–94; PULSE 86–98; RESP 16–20; TEMP 35.7–36.6; O2SAT 97–100
[2020-07-09 04:51] LABS: Basophils Absolute Auto 0.1 K/mm3 (0.0-0.1); Eosinophils Absolute Auto 0.2 K/mm3 (0-0.3); Eosinophils Percent Auto 2.3 % (0-4.4); Hematocrit 39.2 % (37.0-47.0); Hemoglobin 12.7 g/dL (12.0-15.0); Immature Granulocyte Absolute 0.03 K/mm3 (0.00-0.031); Immature Granulocyte Percent A 0.4 % (0-0.5); Lymphocytes Absolute Auto 2.56 K/mm3 (0.9-3.2); Mean Corpuscular HGB Conc 32.4 g/dl (32-36); Mean Corpuscular Hemoglobin 29.5 pg (26-34); Mean Platelet Volume 9.7 fl (7.4-10.4); Monocytes Absolute Auto 0.6 K/mm3 (0.1-0.6); Monocytes Percent Auto 6.7 % (2.6-8.5); Neutrophils Absolute Auto 4.9 K/mm3 (1.3-6.7); Neutrophils Percent Auto 58.6 % (45.5-73.1); Platelet Count Result 286 k/mm3 (150-375); Red Blood Count 4.31 M/mm3 (4.2-5.4); Red Cell Distribution Width 14.4 % (11.5-14.5); White Blood Count 8.3 K/mm3 (4.5-10.0)
[2020-07-09 05:10] LABS: Anion Gap 8 mmol/L (8-16); Blood Urea Nitrogen 21 mg/dL (7-17); Calcium 8.8 mg/dL (8.4-10.2); Carbon Dioxide 25 mmol/L (22-30); Chloride 106 mmol/L (98-107); Estimated CRCL calculation 48 ml/min; Estimated Glomerular Filt Rate 54; Glucose 107 mg/dL (65-105); Potassium 3.6 mmol/L (3.4-5.0); Sodium 139 mmol/L (137-145)
[2020-07-09] MEDS: LEVOTHYROXINE SODIUM 100 MCG TABLET PO (05:37)
[2020-07-09] MEDS: ROSUVASTATIN 10 MG TABLET PO (08:04)
[2020-07-09] MEDS: ASPIRIN 81 MG ENTERIC TABLET PO (08:04)
[2020-07-09] MEDS: lisinopriL 20 MG TABLET 40 MG PO (08:04)
[2020-07-09] MEDS: MAGNESIUM OXIDE 400 MG TABLET PO (08:04)
[2020-07-09] MEDS: ASCORBIC ACID 500 MG TABLET PO (08:04)
[2020-07-09] MEDS: GABAPENTIN 300 MG CAPSULE PO (08:04)
[2020-07-09] MEDS: METOPROLOL SUCCINATE EXT REL 50 MG TABCR PO (08:04)
[2020-07-09] MEDS: CYANOCOBALAMIN 500 MCG TABLET PO (08:05)
[2020-07-09 08:56] LABS: Glucose Point of Care 125 (65-105)
[2020-07-09] MEDS: INSULIN ASPART (*BKC) 100 UNITS/ML SUB-Q (12:03)
[2020-07-09 12:26] LABS: Glucose Point of Care 224 (65-105)
--- NOTE | 2020-07-09 12:57 | PM.PNCARD ---
Progress Note: A&P Assessment and Plan (1) Acute CHF (congestive heart failure): Code(s): I50.9 - Heart failure, unspecified Status: Acute Assessment and Plan: Systolic in etiology. Continue lisinopril, metoprolol. DC IV furosemide and transition to oral furosemide. She already wants to start with 20 mg of furosemide daily. This will likely not be enough to keep her out of failure but will up titrate as able as an outpatient. Will start spironolactone 12.5 mg p.o. daily also (2) Hypertension associated with diabetes: Code(s): E11.59 - Type 2 diabetes mellitus with other circulatory complications; I15.2 - Hypertension secondary to endocrine disorders Status: Acute Assessment and Plan: At goal (3) CAD (coronary artery disease): Code(s): I25.10 - Atherosclerotic heart disease of [place] coronary artery without angina pectoris Status: Acute Assessment and Plan: She does have an obstructive circumflex lesion which is not the etiology of her severe cardiomyopathy. She continues to have symptoms as an outpatient despite treatment of her cardiomyopathy, will consider PCI. In the meantime medical management will be pursued. Continue aspirin, statin, beta-salena (4) Hyperlipidemia LDL goal <70: Code(s): E78.5 - Hyperlipidemia, unspecified Status: Acute Assessment and Plan: On statin (5) Cardiomyopathy: Code(s): I42.9 - Cardiomyopathy, unspecified Status: Acute Assessment and Plan: Continue long-acting beta-salena, Isra inhibitor, spironolactone., furosemide. No cilostazol Okay for discharge from my perspective with follow-up next week in the office Subjective Date/time seen: 07/09/20 12:57 Interval history: 74yo female with DM, PAD and HTN here for CHF exacerbation. Date of service 07/09/2020: No chest pain, shortness breath. No groin pain. Wants to go Review of Systems Review of Systems: All systems reviewed & are unremarkable except as noted in HPI and below Constitutional: Constitutional: Denies fatigue, Denies headache(s) and Reports weakness Eyes: Eyes: Denies blurry vision ENT: Reports Normal hearing present, Denies headache(s), Denies lip swelling and Denies neck pain Cardiovascular: Cardiovascular: Reports chest pain, Reports leg edema, Reports dyspnea and Reports dyspnea on exertion Respiratory: Respiratory: Reports dyspnea and Reports dyspnea on exertion Gastrointestinal: Gastrointestinal: Denies abdominal pain Genitourinary: Genitourinary: Denies flank pain Musculoskeletal: Musculoskeletal: Denies back pain, Denies neck pain and Denies numbness Integumentary/Breasts: Skin/Breast: Denies dry skin and Denies unusual bruising Neurologic: Reports Normal hearing present, Denies confusion, Denies headache(s), Denies numbness and Reports weakness Psychiatric: Psychiatric: Reports anxiety and Denies confusion Endocrine: Endocrine: Denies fatigue Hematologic/Lymphatic: Hematologic/Lymphatic: Denies easy bleeding and Denies easy bruising Allergic/Immunologic: Allergic/Immunologic: Denies GI upset with certain foods and Denies lip swelling Exam Const: General: comfortable and no acute distress; No confusion Orientation/consciousness: No confusion HENMT: General nose exam: Normal nares present Eyes: Sclera: sclerae normal Neck: Neck: supple and no JVD Chest: Other: No reproducible chest wall pain to palpation. Right groin is free of hematoma ecchymosis or bruit Resp: Auscultation: diminished lung sounds Cardio: Rate: regular rate Rhythm: regular rhythm GI: Inspection: normal to inspection Skin: General skin exam: normal color Neuro: General: No confusion Cranial nerves: Yes Normal hearing present Cognition (Neuro): normal cognition Speech: normal speech Extrem: General: no edema Psych: Affect: Anxious affect present Objective Data Vital Signs Vital Signs: Vital Signs - 24
--- NOTE | 2020-07-09 13:19 | PM.DS ---
DS: Admitting Diagnosis Admitting Diagnosis Admitting Diagnosis: 1. Acute on chronic systolic congestive heart failure 2. History of diabetes 3. History of hypertension 4. Elevated troponin DS: Discharge Diagnosis Discharge Diagnosis (1) Acute CHF (congestive heart failure): Code(s): I50.9 - Heart failure, unspecified Status: Acute (2) Elevated troponin: Code(s): R77.8 - Other specified abnormalities of plasma proteins Status: Acute (3) Type 2 diabetes mellitus with hyperglycemia, with long-term current use of insulin: Code(s): E11.65 - Type 2 diabetes mellitus with hyperglycemia; Z79.4 - USP (current) use of insulin Status: Acute (4) Nonsustained ventricular tachycardia: Code(s): I47.2 - Ventricular tachycardia Status: Acute (5) PAD (peripheral artery disease): Code(s): I73.9 - Peripheral vascular disease, unspecified Status: Acute (6) HTN (hypertension): Code(s): I10 - Essential (primary) hypertension Status: Acute (7) HLD (hyperlipidemia): Code(s): E78.5 - Hyperlipidemia, unspecified Status: Acute (8) History of CVA (cerebrovascular accident): Code(s): Z86.73 - Personal history of transient ischemic attack (TIA), and cerebral infarction without residual deficits Status: Acute (9) DVT prophylaxis: Code(s): Z29.9 - Encounter for prophylactic measures, unspecified Status: Acute Assessment and Plan: # Acute congestive heart failure: BNP 8440. CXR with CMG and pulmonary edema. started on iv lasix. ECHo with EF 15-20% with grade II diastolic dysfunction and mdoerate MR and modeerate pumonary HTN (49). lisionpril and torprol XL. cardiology on board. # Elevted Tropoin: troponin to 0.087 and flat. felt to be related toa cute CHF. ekg with poor R wave progression and T wave chagnes in tracey lateral leads. contineu aspirin, metopolol and crestor. s/p [facility] 07/08/2020: RCA dominant circulation wtih single vessel dsiase involving signifciant stenosis in proximal circumflex, mild plaquing in the proximal LAD, mild non flow limiting stenosis in proximal mid RCA # cardiomyopathy: new. # type 2 DM with longwall foreman currnet use of insulin: accucheck and protocol ssi # NSVT: noted on tele. mg low. replaced. no further episode reported. monitor on telemetry # PAD: s/p AAA repair. on cilosatazol. resume. contineu aspirin and statin. # HTN:home meds # HLP: home emds # hx of CVA without residual deficits: aspirin, statin # DVT proph: SCDs, DS: Summary Hospital Course Hospital Course: 71 years old female was admitted complains of having shortness of breath. Patient was found to have a high troponin. Cardiology was consulted who advised that patient needs medical management. Diuretic was started. Patient was continued treatment for high cholesterol and diabetes. Today patient is feeling better so patient was discharged home stable condition. Time spent discussing smoking cessation with patient: 3 to 10 minutes Status at Discharge Cognitive/behavioral status at discharge: Stable Functional status at discharge: independent ambulation Time Spent with Patient Time attestation: Total time spent providing and/or coordinating discharge services: Time spent: Less than 30 minutes Exam Narrative: Exam Narrative: General: no acute distress, alert, awake, tired appearing alert and oriented x3 HENMT: Head: normal to inspection and normocephalic Ears: hearing grossly normal bilaterally General nose exam: Normal external nose present Face and sinus: normal facial exam Eyes: PERRLA, EOMs intact bilaterally Neck: Neck: no lymphadenopathy, supple and no JVD Resp: Auscultation: diminished breath sounds bialtelaly, not in respiratory distress Cardio: Jugular venous distension: no JVD Rate: regular rate Rhythm: regular rhythm GI: GI Palp: Yes Soft to palpation and Yes No hepatosplenomegaly present Skin: Rashes: no rashes Wound
== END 2020-07-09 14:00 | disposition home or self-care (01) | DRG 287 ==
LOC: ANHED 01:42 → ANHIMU 05:03
PROVIDERS: Internal Medicine; Internal Medicine Cardiovascular Disease; Specialist; Admitting Provider Internal Medicine; Emergency Provider Emergency Medicine; PCP Emergency Medicine; Visit Provider Internal Medicine
PROC: 4A023N7 Measurement of Cardiac Sampling and Pressure, Left Heart, Percutaneous Approach (ICD-10-PCS; CPT 93452; principal; 2020-07-08 09:30)
DX: I11.0 Hypertensive heart disease with heart failure; I47.2 Ventricular tachycardia; I42.9 Cardiomyopathy, unspecified; I25.10 Atherosclerotic heart disease of native coronary artery without angina pectoris; I50.23 Acute on chronic systolic (congestive) heart failure; E11.59 Type 2 diabetes mellitus with other circulatory complications; E11.65 Type 2 diabetes mellitus with hyperglycemia; E11.69 Type 2 diabetes mellitus with other specified complication; E78.5 Hyperlipidemia, unspecified; E11.51 Type 2 diabetes mellitus with diabetic peripheral angiopathy without gangrene; R77.8 Other specified abnormalities of plasma proteins; I70.213 Atherosclerosis of native arteries of extremities with intermittent claudication, bilateral legs; E03.9 Hypothyroidism, unspecified; E55.9 Vitamin D deficiency, unspecified; Z28.21 Immunization not carried out because of patient refusal; Z79.4 Long term (current) use of insulin; Z79.899 Other long term (current) drug therapy; Z86.73 Personal history of transient ischemic attack (TIA), and cerebral infarction without residual deficits; Z86.79 Personal history of other diseases of the circulatory system; Z87.891 Personal history of nicotine dependence; Z95.828 Presence of other vascular implants and grafts
CPT/HCPCS: 36415; 71046; 80048; 80053; 80061; 80069; 82948; 83036; 83735; 83880; 84100; 84439; 84443; 84480; 84484; 85025; 85610; 85730; 93005; 93458; 96361; 96374; 96375; 96376; 97161; 97165; 99285; A9270; C1887; C1894; C8929; G0378; J1644; J1815; J1940; J2250; J3010; J3475; J7030; J7040; Q9957

== ENCOUNTER 2020-09-11 23:53 | Inpatient (IN) | payer OTHER, SELFPAY ==
--- NOTE | ~2020-09-11 | XR_ITS ---
XR chest 1V portable DATE: 09/12/2020 00:38 INDICATION: Shortness of breath TECHNIQUE: Portable AP chest on 09/12/2020 at 0037 hours COMPARISON: 07/06/2020 AP and lateral chest FINDINGS: Cardiomegaly. Aortic calcification and mild unfolding. Pulmonary vascular congestion and redistribution. There is prominence of the minor fissure consistent with subpleural edema and Guillermo B-lines consistent with pulmonary interstitial edema. No pleural ef fusion is identified. Lungs are clear of consolidation. No pneumothorax. Diffuse osteopenia. IMPRESSION: Cardiomegaly, pulmonary vascular congestion and pulmonary interstitial and subpleural [place], consistent with congestive heart failure Reviewed, dictated and finalized at location A. IMPRESSION: Cardiomegaly, pulmonary vascular congestion and pulmonary interstit ial and subpleural edema, consistent with congestive heart failure
[2020-09-12] VITALS (17 sets, daily range): BP systolic 98–145; BP diastolic 59–83; PULSE 78–122; RESP 16–36; TEMP 36.2–37; O2SAT 90–99; BMI 23.9
--- NOTE | 2020-09-12 00:15 | ECG_ITS ---
Measurements Intervals [place] Rate: 121 P: 15 NC: 173 QRS: -21 QRSD: 120 T: 127 QT: 311 QTc: 443 Interpretive Statements SINUS TACHYCARDIA DELAYED PRECORDIAL R/S TRANSITION LEFT VENTRICULAR HYPERTROPHY AND ST-T CHANGE ST-T WAVE ABNORMALITY IN LAT/HIGH LAT LEADS- CONSIDER ISCHEMIA BASELINE WANDER- I, II, III, AVL, AVF, V4-V6 ABNORMAL ECG Electronically Signed On 09-12-2020 7:12:27 CDT by Gary Quiñones D.O.
--- NOTE | 2020-09-12 00:20 | PC.NURSE ---
Pt presents to ED with complaints of sob that onset at 1999 when trying to go to bed. Pt noted with hx of CHF and denies use of home O2. Pt denies chest pain, nvd, fever and chills. Pt noted to be alert and oriented x4. Pt noted to be saturating at 90% on room air and is audibly wheezing. 2 liters of O2 applied. EDMD presented to bedside.
[2020-09-12] MEDS: FUROSEMIDE INJ 40 MG/4 ML VIAL IV PUSH ×3 (00:25→21:58)
[2020-09-12 00:38] LABS: Basophils Absolute Auto 0.1 K/mm3 (0.0-0.1); Basophils Percent Auto 0.6 % (0.2-1.2); Eosinophils Absolute Auto 0.1 K/mm3 (0-0.3); Eosinophils Percent Auto 0.4 % (0-4.4); Hematocrit 43.7 % (37.0-47.0); Hemoglobin 14.2 g/dL (12.0-15.0); Immature Granulocyte Absolute 0.05 K/mm3 (0.00-0.031); Immature Granulocyte Percent A 0.4 % (0-0.5); Lymphocytes Absolute Auto 1.11 K/mm3 (0.9-3.2); Lymphocytes Percent Auto 9.2 % (18.3-44.2); Mean Corpuscular HGB Conc 32.5 g/dl (32-36); Mean Corpuscular Hemoglobin 29.6 pg (26-34); Mean Platelet Volume 9.8 fl (7.4-10.4); Monocytes Absolute Auto 0.5 K/mm3 (0.1-0.6); Monocytes Percent Auto 3.9 % (2.6-8.5); Neutrophils Absolute Auto 10.3 K/mm3 (1.3-6.7); Neutrophils Percent Auto 85.5 % (45.5-73.1); Platelet Count Result 275 k/mm3 (150-375); Red Cell Distribution Width 13.7 % (11.5-14.5); White Blood Count 12.1 K/mm3 (4.5-10.0)
[2020-09-12 00:45] LABS: Prothrombin Time 13.7 Seconds (11.1-14.7)
[2020-09-12 00:46] LABS: Alanine Aminotransferase 18 U/L (4-35); Albumin Level 4.5 g/dL (3.5-5.1); Alkaline Phosphatase 124 U/L (38-126); Anion Gap 12 mmol/L (8-16); Aspartate Amino Transferase 26 U/L (14-36); Bilirubin,Total 0.3 mg/dL (0.2-1.3); Blood Urea Nitrogen 28 mg/dL (7-17); Calcium 10.6 mg/dL (8.4-10.2); Carbon Dioxide 21 mmol/L (22-30); Chloride 107 mmol/L (98-107); Estimated CRCL calculation 47 ml/min; Estimated Glomerular Filt Rate > 60; Glucose 418 mg/dL (65-105); Magnesium 1.9 mg/dL (1.6-2.3); Partial Thromboplastin Time 25.6 SECONDS (22.3-36.8); Potassium 4.1 mmol/L (3.4-5.0); Sodium 140 mmol/L (137-145)
--- NOTE | 2020-09-12 00:52 | PC.NURSE ---
Nitro unavailable in pyxis. Pharmacy called and states he will tube med to ED.
[2020-09-12 01:02] LABS: NT Pro B Type Natriuretic Pept 5530 pg/mL (5-100); Troponin I 0.112 ng/mL (0.000-0.034)
[2020-09-12 01:02] LABS: Glucose Point of Care 331 (65-105)
[2020-09-12 01:51] LABS: Add Urine Microscopic? YES; Appearance Urine Clear (Clear); Bacteria Urine Trace /hpf; Bilirubin Urine Negative (Negative); Blood Urine Negative (Negative); Color Urine Straw (Yellow); Glucose Urine UA 3+ mg/dL (Negative); Ketones Urine Negative (Negative); Leukocyte Esterase Ur Negative LEU/UL (Negative); Nitrate Urine Negative (Negative); Protein Urine Negative (Negative); Specific Grav Ur 1.013 (1.001-1.035); Squamous Epithelial Cell Urine Few /hpf (Few); Urobilinogen Urine Negative mg/dL (<2.0)
--- NOTE | 2020-09-12 02:24 | ED.GENADULT ---
HPI - General Adult General Chief complaint: Shortness of Breath/Dyspnea Stated complaint: Shortness of breath Time Seen by Provider: 09/12/20 00:12 History of Present Illness HPI narrative: Patient is a 75-year-old female who presents the emergency department chief complaint of shortness of breath. Patient reports that she has history of congestive heart failure and was eating some sauerkraut and cabbage over the last 2 days. Patient states she had a bowl yesterday and then had a bowl tonight. Patient states she went to bed and woke up and was having shortness of breath and noticed that she was wheezing at home. The patient took an extra 20 mg of Lasix and started having some urination and started feeling a little bit better upon arrival to the emergency department. Patient still states that she feels short of breath and actually reports that she had some wheezing. The patient had a room air saturation of 90% upon arrival. Patient reports shortness of breath is worsened with exertion states it is improved whenever she is resting. Related Data Home Medications Medication Instructions Recorded Confirmed cyclobenzaprine 10 mg tablet 10 mg PO DAILY 03/10/19 07/06/20 aspirin 81 mg tablet,delayed 81 mg PO DAILY 06/13/19 07/06/20 release blood sugar diagnostic #10 each 06/19/19 07/06/20 lancets #50 each 06/19/19 07/06/20 pen needle, diabetic 31 gauge x #1,200 each 06/19/19 07/06/20/ magnesium 200 mg tablet 400 mg PO DAILY tablet 09/16/19 07/06/20 ascorbic acid (vitamin C) 500 mg PO DAILY 07/06/20 07/06/20 cilostazol 100 mg PO DAILY 07/06/20 07/06/20 cyanocobalamin (vitamin B-12) 500 mcg PO DAILY 07/06/20 07/06/20 gabapentin 300 mg PO DAILY 07/06/20 07/06/20 insulin asp prt-insulin aspart See Rx Instructions .ROUTE .COMPLEX 07/06/20 07/06/20 [Novolog Mix 70-30FlexPen U-100] levothyroxine 100 mcg PO DAILY 07/06/20 07/06/20 lisinopril 40 mg PO DAILY 07/06/20 07/06/20 Allergies Allergy/AdvReac Type Severity Reaction Status Date / Time Penicillins Allergy Unknown Verified 01/06/15 10:53 Review of Systems Review of Systems: Narrative: A 10 system review of systems was completed on the patient and is negative except for what is stated in the HPI. Nursing and ancillary documentation was reviewed. [facility] Past Medical History Medical History Cardiomyopathy Diabetes mellitus History of CVA (cerebrovascular accident) HLD (hyperlipidemia) HTN (hypertension) Hypothyroidism, acquired PAD (peripheral artery disease) Type 2 diabetes mellitus with hyperglycemia, with long-term current use of insulin Vitamin D deficiency, unspecified Family History Family History Father Family history of alcoholism Family history of congestive heart failure Carcinoma of colon, Onset Age: 64 Mother Family history of liver disease Family history of diabetes mellitus in first degree relative Sibling Family history of diabetes mellitus in first degree relative Other Family history of cardiovascular disease Family history of primary malignant neoplasm of liver Social History Social History Smoking packs per day: 0.5 Smoking cigarettes per day: 10.0 Years smoked: 50 Smoking pack-years: 25.00 Smoking status: Never smoker Smoking end date: 03/01/19 Alcohol intake: never Substance use: never Substance use type: does not use Gender identity (if verbalized by the patient): Female Spiritual care concerns: No Exam Narrative: Exam Narrative: GENERAL: Well-appearing, well-nourished, and in no acute distress. HEAD: Normocephalic, atraumatic. EYES: PERRLA and EOMI. ENT: Nares clear, no rhinorrhea or epistaxis. Mucous membranes moist. NECK: Supple. CHEST: Expiratory wheezes present bilaterally with crackles. No respir
[2020-09-12] MEDS: ASPIRIN 81 MG CHEWABLE TABLET 324 MG PO (03:17)
--- NOTE | 2020-09-12 03:30 | PC.NURSE ---
Pt resting on cart with family member at bedside. All questions and concerns addressed. Pt ambulating to bedside commode with steady gait noted. No complaints or concerns voiced at this time. Call button and personal items within reach. Pt advised to press call button for assistance.
--- NOTE | 2020-09-12 05:11 | PC.NURSE ---
report called to Abby. Mg to send pt to floor.
--- NOTE | 2020-09-12 05:48 | PC.NURSE ---
This patient, Desiree Jo, was admitted to IMU Room 206-02. Patient/family oriented to hospital policies and general routines including ID bracelet, bed and alarms, visiting hours, pain management, procedures, bathroom and other care routines, personal items, smoking policy, room service/diet, and visiting hours. Information on how to activate the Rapid Response Team has been discussed. Patient/Family are encouraged to report perceived risks to care and to ask questions if they do not understand what they are told or what they should do.
[2020-09-12 06:05] LABS: Glucose Point of Care 225 (65-105)
[2020-09-12] MEDS: LEVOTHYROXINE SODIUM 100 MCG TABLET PO (06:23)
--- NOTE | 2020-09-12 07:49 | PM.IMHP ---
H&P: HPI History of Present Illness Date/Time: Desiree was a pleasant and talkative lady this morning when I met her for her exam. She stated that she felt back to herself and completely normal at that time. She has no lower extremity edema or swelling noted. She has clear lungs with no crackles or wheezes. And her heartbeat was regular without murmurs or rubs. Her bowel sounds are active in all quadrants and her abdomen was soft and palpable without pain. She states that she was having a stressful evening yesterday when her family in sisters were giving her a hard time about not taking care of her health. And she felt that she became very stressed, agitated and irritated and became short of breath. She is currently having no chest pain or pressure and no shortness of breath, and no dyspnea noted despite her run on conversation and repositioning in bed. Sports Book Writer came in at the end of my evaluation to see the patient. Appreciate cardiology consultation and recommendations Chief Complaint: SOB, DYSPNEA, CHF exacerbation, Wheezing Review of Systems Constitutional: Constitutional: Denies excessive sweating, Denies headache(s), Denies increased appetite, Denies snoring and Denies weight gain Eyes: Eyes: Denies exophthalmos, Denies diplopia, Denies floaters and Denies loss of peripheral vision ENT: Denies facial pain, Denies headache(s), Denies odynophagia and Denies tinnitus Respiratory: Respiratory: Denies snoring Gastrointestinal: Gastrointestinal: Denies odynophagia Neurologic: Denies headache(s) Endocrine: Endocrine: Denies excessive sweating PMFSH Past Medical History Medical History (Updated 09/12/20 @ 09:55 by Fallon Meza MD) Cardiomyopathy Diabetes mellitus History of CVA (cerebrovascular accident) Ongoing left lower extremity weakness HLD (hyperlipidemia) HTN (hypertension) Hypothyroidism, acquired Loss of vision 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 NSTEMI (non-ST elevated myocardial infarction) PAD (peripheral artery disease) Type 2 diabetes mellitus with hyperglycemia, with long-term current use of insulin Vitamin D deficiency, unspecified Surgical History Surgical History (Updated 09/12/20 @ 09:51 by Fallon Meza MD) S/P AAA (abdominal aortic aneurysm) repair Family History Family History Father Family history of alcoholism Family history of congestive heart failure Carcinoma of colon, Onset Age: 64 Mother Family history of liver disease Family history of diabetes mellitus in first degree relative Sibling Family history of diabetes mellitus in first degree relative Other Family history of cardiovascular disease Family history of primary malignant neoplasm of liver Social History Social History (Updated 09/12/20 @ 09:52 by Fallon Meza MD) Social History: Lives alone in a senior citizens apartment building. Has sisters who helps her out. Smoking packs per day: 0.5 Smoking cigarettes per day: 10.0 Years smoked: 60 Smoking pack-years: 30.00 Smoking status: Former smoker Tobacco type: cigarettes Smoking end date: 03/01/19 Alcohol intake: never Substance use: never Substance use type: does not use Gender identity (if verbalized by the patient): Female Spiritual care concerns: No Meds Home Medications and Allergies Home Medications Medication Instructions Recorded Confirmed Type cyclobenzaprine 10 mg tablet 10 mg PO DAILY 03/10/19 09/12/20 History aspirin 81 mg tablet,delayed 81 mg PO DAILY 06/13/19 09/12/20 History release magnesium 200 mg tablet 400 mg PO DAILY tablet 09/16/19 09/12/20 History amlodipine 5 mg tablet 5 mg PO DAILY #90 tablet 01/31/20 09/12/20 Rx ascorbic acid (vitamin C) 500 mg PO DAILY 07/06/20 09/12/20 History cilostazol 100 mg PO DAILY 07/06/20 09/12/20 History cyanocobalamin (vitamin B-12) 500 mcg PO DAILY
[2020-09-12 08:19] LABS: Basophils Absolute Auto 0.1 K/mm3 (0.0-0.1); Basophils Percent Auto 0.5 % (0.2-1.2); Eosinophils Absolute Auto 0.1 K/mm3 (0-0.3); Hemoglobin 13.9 g/dL (12.0-15.0); Immature Granulocyte Absolute 0.04 K/mm3 (0.00-0.031); Immature Granulocyte Percent A 0.3 % (0-0.5); Lymphocytes Absolute Auto 2.78 K/mm3 (0.9-3.2); Lymphocytes Percent Auto 24.3 % (18.3-44.2); Mean Corpuscular HGB Conc 33.1 g/dl (32-36); Mean Corpuscular Hemoglobin 29.1 pg (26-34); Mean Corpuscular Volume 88.1 fl (80-100); Mean Platelet Volume 9.5 fl (7.4-10.4); Monocytes Absolute Auto 0.6 K/mm3 (0.1-0.6); Monocytes Percent Auto 5.5 % (2.6-8.5); Neutrophils Absolute Auto 7.8 K/mm3 (1.3-6.7); Neutrophils Percent Auto 68.4 % (45.5-73.1); Platelet Count Result 266 k/mm3 (150-375); Red Blood Count 4.77 M/mm3 (4.2-5.4); Red Cell Distribution Width 13.5 % (11.5-14.5); White Blood Count 11.4 K/mm3 (4.5-10.0)
[2020-09-12] MEDS: HEPARIN SOD/D5W 100 UNITS/ML 25,000 UNITS/250 ML BAG 8 UNITS IV CONT (08:26)
[2020-09-12] MEDS: HEPARIN SODIUM 5,000 UNITS/ML VIAL 4000 UNITS IV PUSH ×2 (08:27→15:32)
[2020-09-12 08:30] LABS: Partial Thromboplastin Time 24.6 SECONDS (22.3-36.8)
[2020-09-12] MEDS: ROSUVASTATIN 10 MG TABLET PO (08:34)
[2020-09-12] MEDS: cilostazoL 100 MG TABLET PO (08:34)
[2020-09-12] MEDS: lisinopriL 20 MG TABLET 40 MG PO (08:34)
[2020-09-12] MEDS: CYCLOBENZAPRINE HCL 10 MG TABLET PO (08:34)
[2020-09-12] MEDS: amLODIPine BESYLATE 5 MG TABLET PO (08:34)
[2020-09-12 09:01] LABS: Glucose Point of Care 210 (65-105)
--- NOTE | 2020-09-12 09:25 | PM.CNCAR ---
Assessment and Plan Assessment and plan (1) NSTEMI (non-ST elevated myocardial infarction): Code(s): I21.4 - Non-ST elevation (NSTEMI) myocardial infarction Status: Acute Assessment and Plan: Patient with stable CHF, acute CHF associated with some indigestion last night an elevated troponin of 13 today, suggesting this is an ACS event/non-STEMI and not all due to CHF itself. Has known CAD with an 80% circumflex stenosis which previously was asymptomatic. Continue aspirin and beta-salena Placed on heparin drip Patient counseled that this is not exactly the same thing as she had before, reviewed CAD and NSTEMI causing CHF exacerbation, superimposed on her cardiomyopathy etc.. Recommend percutaneous intervention of the circumflex on Monday. Patient is aware she will need to continue aspirin and the 2nd ?blood thinner? after a stent is placed. (2) Acute exacerbation of CHF (congestive heart failure): Qualifiers: Heart failure type: unspecified Qualified Code(s): I50.9 - Heart failure, unspecified Code(s): I50.9 - Heart failure, unspecified Status: Acute Assessment and Plan: Diuresing, improving. Continue furosemide 20 mg IVP BID Daily BMP (3) Cardiomyopathy: Qualifiers: Cardiomyopathy type: other Qualified Code(s): I42.8 - Other cardiomyopathies Code(s): I42.9 - Cardiomyopathy, unspecified Status: Acute Assessment and Plan: History of cardiomyopathy, EF 15 - 20% in June 2020. Has good functional status and has not had any CHF exacerbation since discharge. Sounds like diet could be improved somewhat since she was eating saurkraut cetera the last couple of days, counseled about low-salt diet Continue lisinopril, beta-salena etc.. She wsa started on spironolactone last hospitalization but not discharged on it; K+ has not been high; will resume. Recommend increasing the metoprolol from 50 mg to 75 mg and further for better treatment of her cardiomyopathy, can discontinue as the BB is more important. History of Present Illness History of Present Illness Consult date/time: 09/12/20 09:25 Consult reason: congestive heart failure and Other (Elevated troponin) Reason For Visit: Acute Exacerbation of CHF, Elevated Troponin Narrative: Desiree Vela is a 75-year-old white female whom we were asked to see at the request of Dr. Ferguson for advice and opinion regarding her elevated troponins and CHF in consultation. The patient was admitted with new onset of heart failure in June 2020. Her cardiac catheterization showed 80% proximal circumflex lesion but since she was having no angina she was treated medically for this. Her echo showed an EF of 15%. She was discharged on metoprolol, lisinopril, and furosemide. Patient reports she followed up in our office after discharge with her nurse practitioner and has an upcoming appointment with Dr. Andersen. Since discharge she has been doing fine, able to ambulate and do some light housework with no particular shortness of breath. No PND, orthopnea, or edema. She has lost 9 lb since last admission.. The patient had a normal day yesterday, went to bed 8 but woke up at 10:00 p.m. gurgling and short of breath. She has some substernal chest discomfort described as indigestion. She called her sister who brought her to the emergency room where she was found to be in heart failure. She was tachycardic with a heart rate of 115-130 but not significantly hypoxic or hypertensive. She was given Lasix and the shortness of breath and indigestion resolved. She also has developed a troponin of 13. She states she feels well enough to go home today. Review of Systems Constitutional: Constitutional
[2020-09-12 15:07] LABS: Partial Thromboplastin Time 40.7 SECONDS (22.3-36.8)
[2020-09-12] MEDS: METOPROLOL SUCCINATE EXT REL 25 MG TABCR 75 MG PO (17:20)
[2020-09-12 17:28] LABS: Glucose Point of Care 183 (65-105)
[2020-09-12 21:09] LABS: Glucose Point of Care 76 (65-105)
[2020-09-12] MEDS: GABAPENTIN 300 MG CAPSULE PO (21:58)
[2020-09-13] VITALS (19 sets, daily range): BP systolic 74–111; BP diastolic 46–61; PULSE 74–102; RESP 16–21; TEMP 35.7–36.5; O2SAT 92–100
[2020-09-13 04:12] LABS: Basophils Absolute Auto 0.1 K/mm3 (0.0-0.1); Basophils Percent Auto 0.8 % (0.2-1.2); Eosinophils Absolute Auto 0.3 K/mm3 (0-0.3); Hematocrit 39.6 % (37.0-47.0); Hemoglobin 13.2 g/dL (12.0-15.0); Immature Granulocyte Absolute 0.03 K/mm3 (0.00-0.031); Immature Granulocyte Percent A 0.3 % (0-0.5); Lymphocytes Absolute Auto 3.09 K/mm3 (0.9-3.2); Lymphocytes Percent Auto 35.8 % (18.3-44.2); Mean Corpuscular HGB Conc 33.3 g/dl (32-36); Mean Corpuscular Hemoglobin 29.5 pg (26-34); Mean Corpuscular Volume 88.6 fl (80-100); Mean Platelet Volume 9.7 fl (7.4-10.4); Monocytes Absolute Auto 0.5 K/mm3 (0.1-0.6); Monocytes Percent Auto 5.9 % (2.6-8.5); Neutrophils Absolute Auto 4.7 K/mm3 (1.3-6.7); Neutrophils Percent Auto 54.2 % (45.5-73.1); Platelet Count Result 238 k/mm3 (150-375); Red Blood Count 4.47 M/mm3 (4.2-5.4); Red Cell Distribution Width 13.7 % (11.5-14.5); White Blood Count 8.6 K/mm3 (4.5-10.0)
[2020-09-13 04:24] LABS: Partial Thromboplastin Time 79.5 SECONDS (22.3-36.8)
[2020-09-13 04:28] LABS: Anion Gap 6 mmol/L (8-16); Blood Urea Nitrogen 25 mg/dL (7-17); Calcium 9.6 mg/dL (8.4-10.2); Carbon Dioxide 30 mmol/L (22-30); Chloride 104 mmol/L (98-107); Estimated CRCL calculation 47 ml/min; Estimated Glomerular Filt Rate > 60; Glucose 183 mg/dL (65-105); Potassium 3.2 mmol/L (3.4-5.0); Sodium 140 mmol/L (137-145)
[2020-09-13 04:52] LABS: NT Pro B Type Natriuretic Pept 7270 pg/mL (5-100)
[2020-09-13] MEDS: HEPARIN SOD/D5W 100 UNITS/ML 25,000 UNITS/250 ML BAG 11 UNITS IV CONT (06:36)
[2020-09-13] MEDS: LEVOTHYROXINE SODIUM 100 MCG TABLET PO (06:37)
[2020-09-13 07:58] LABS: Glucose Point of Care 140 (65-105)
--- NOTE | 2020-09-13 08:00 | ECG_ITS ---
Measurements Intervals [place] Rate: 77 P: 32 WI: 181 QRS: -25 QRSD: 118 T: 146 QT: 416 QTc: 473 Interpretive Statements SINUS RHYTHM INTRAVENTRICULAR CONDUCTION DELAY LEFT VENTRICULAR HYPERTROPHY AND ST-T CHANGE ST-T WAVE ABNORMALITY IN ANTEROLAT/HIGH LAT LEADS- CONSIDER ISCHEMIA BASELINE WANDER- V1 ABNORMAL ECG Electronically Signed On 09-13-2020 14:33:31 CDT by Gary Quiñones D.O.
[2020-09-13] MEDS: SPIRONOLACTONE 25 MG TABLET PO (08:49)
[2020-09-13] MEDS: cilostazoL 100 MG TABLET PO (08:49)
[2020-09-13] MEDS: FUROSEMIDE INJ 40 MG/4 ML VIAL IV PUSH (08:49)
[2020-09-13] MEDS: ROSUVASTATIN 10 MG TABLET PO (08:49)
[2020-09-13] MEDS: CYCLOBENZAPRINE HCL 10 MG TABLET PO (08:49)
--- NOTE | 2020-09-13 09:16 | PM.IMPN ---
Progress Note: A&P Assessment and Plan (1) Acute exacerbation of CHF (congestive heart failure): Qualifiers: Heart failure type: unspecified Qualified Code(s): I50.9 - Heart failure, unspecified Code(s): I50.9 - Heart failure, unspecified Status: Acute Assessment and Plan: No chest pain and no shortness of breath and no dyspnea noted. No wheezing or crackles noted during auscultation of lungs. cardiac telemetry monitoring, Despite her IV Lasix at 40 mg b.i.d., her BNP increased from 5530 to 7270 today. spironolactone per network specialist. Dropped her Lasix down today to 20 mg b.i.d. IV per cardiology recommendations. Intake /output was 600ml in / 1700ml out and then today 1360 ml IN/ 1400 ml out. Appreciate cardiology recommendations and following them as such. (2) NSTEMI (non-ST elevated myocardial infarction): Code(s): I21.4 - Non-ST elevation (NSTEMI) myocardial infarction Status: Acute Assessment and Plan: Presents with acute on chronic CHF, possibly from NSTEMI Initial troponin 0.112, then elevated troponin of 12.6 and 13.8. no chest Pain or pressure, no dyspnea troponins continue to improve while on IV heparin, 11.5 down to 6.46 down to 5.64. cardiac catheterization tomorrow with possible stent History of known CAD with an 80% circumflex stenosis which previously was asymptomatic. Signal Helper Recommend percutaneous intervention of the circumflex on Monday. Continue 81 mg aspirin and 75 mg metoprolol extended release and anticoagulation if stent placed Continue telemetry monitoring and vital sign monitoring Appreciate cardiology consultation and following recommendations (3) Cardiomyopathy: Qualifiers: Cardiomyopathy type: other Qualified Code(s): I42.8 - Other cardiomyopathies Code(s): I42.9 - Cardiomyopathy, unspecified Status: Acute Assessment and Plan: History of cardiomyopathy, EF 15 - 20% in June 2020. Has good functional status and has not had any CHF exacerbation since discharge. improve cardiac diet - discussed importance of no to low salt diet (patient stated that she hadn't added any salt to her sauerkraut) Continue 5 mg amlodipine, 81 mg aspirin, 20 mg Lasix BID , lisinopril 40 mg, 75 mg metoprolol succinate every evening. Signal Helper Dr. Ortiz restarted her 25 mg spironolactone dose (she did well on it during last hospitalization) Signal Helper Dr. Ortiz recommends increasing the metoprolol from 50 mg to 75 mg. Continue telemetry monitoring and vital sign monitoring Appreciate cardiology consultation and following recommendations (4) Type 2 diabetes mellitus with hyperglycemia, with long-term current use of insulin: Code(s): E11.65 - Type 2 diabetes mellitus with hyperglycemia; Z79.4 - snf (current) use of insulin Status: Acute Assessment and Plan: A1c on July 07 of this year was 8.1 ACHS glucose checks low dose Sliding scale insulin orders placed Continue 70 /30 insulin doses b.i.d. Diabetic and heart healthy diet Glucose levels today were 183, 140 Subjective Date/time seen: 09/13/20 09:16 Desiree was feeling quite well today. No chest pain and no shortness of breath and no dyspnea noted. Continues to be on cardiac telemetry monitoring, heart rate in the 80s. She ate all of her breakfast. She was bit nervous about her cardiac catheterization tomorrow and having it repeated after she had just had a cardiac catheterization a couple months ago. Her troponins continue to improve while on IV heparin, 11.5 down to 6.46 down to 5.64. Creatinine stable at 0.9. Despite her IV Lasix at 40 mg b.i.d., her BNP increased from 5530 to 7270 today. Potassium dropped to 3.2, added 40 mg potassium supplement for 1 time dose today. She continues to be on spironolactone per network specialist. Dropped her Lasix down today to 20 mg b.i.d. IV per cardiology recommendations. Intake /output was 600ml in / 1700ml out and t
[2020-09-13 12:46] LABS: Glucose Point of Care 117 (65-105)
[2020-09-13 16:48] LABS: Glucose Point of Care 112 (65-105)
[2020-09-13] MEDS: POTASSIUM CHLORIDE 20 MEQ TABLET 40 MEQ PO (17:52)
[2020-09-13] MEDS: METOPROLOL SUCCINATE EXT REL 25 MG TABCR 75 MG PO (17:52)
--- NOTE | 2020-09-13 18:11 | PM.PNCARD ---
Progress Note: A&P Assessment and Plan (1) NSTEMI (non-ST elevated myocardial infarction): Code(s): I21.4 - Non-ST elevation (NSTEMI) myocardial infarction Status: Acute Assessment and Plan: Patient with stable CHF, acute CHF associated with some indigestion on admission with an elevated troponin of 13, suggesting this is an ACS event/non-STEMI and not all due to CHF itself. Has known CAD with an 80% circumflex stenosis which previously was asymptomatic. Continue aspirin and beta-salena Placed on heparin drip Patient counseled that this is not exactly the same thing as she had before, reviewed CAD and NSTEMI causing CHF exacerbation, superimposed on her cardiomyopathy etc. Recommend percutaneous intervention of the circumflex on Monday. Patient is aware she will need to continue aspirin and the 2nd ?blood thinner? after a stent is placed. Reviewed possible risks and complications with patient including breathing problems, bleeding problems, blood vessel problems, unanticipated surgery, allergic reactions, kidney problems, CVA, ME, and among others. Discussed possibility of stenting and possible need for DAPT. Discussed the possibility that if DAPT is interrupted stent thrombosis can occur resulting in heart attack and . Patient understands risks and desires to proceed. (2) Acute exacerbation of CHF (congestive heart failure): Qualifiers: Heart failure type: unspecified Qualified Code(s): I50.9 - Heart failure, unspecified Code(s): I50.9 - Heart failure, unspecified Status: Acute Assessment and Plan: Diuresing, improving, appears euvolemic. Change furosemide back to home dose, 20 mg daily (3) Cardiomyopathy: Qualifiers: Cardiomyopathy type: other Qualified Code(s): I42.8 - Other cardiomyopathies Code(s): I42.9 - Cardiomyopathy, unspecified Status: Acute Assessment and Plan: History of cardiomyopathy, EF 15 - 20% in June 2020. Has good functional status and has not had any CHF exacerbation since discharge. Continue lisinopril, beta-salena etc. I have tried to titrate the metoprolol from 50 to75 mg but she has low blood pressure so will go back to 50 mg daily. Perhaps when she is not actively diuresing, as an outpatient, we can titrate at a later date. Resumed spironolactone. Subjective Date/time seen: 09/13/20 18:11 Interval history: Follow-up non-STEMI, CHF, cardiomyopathy, CAD with circumflex stenosis. Troponins went up to 13. Date of service 09/13/2020: [place] a little woozy today, no chest pain or shortness of breath, no PND or edema. Soft blood pressure at times, once 74/50 generally 95-110/60 mmHg., I's and O's were -1100 mL. Review of Systems Constitutional: Constitutional: Reports fatigue ENT: Denies nasal congestion Cardiovascular: Cardiovascular: Denies chest pain, Denies pedal edema, Denies leg edema, Reports lightheadedness and Denies palpitations Respiratory: Respiratory: Denies cough and Denies dyspnea Gastrointestinal: Gastrointestinal: Denies abdominal pain Genitourinary: Genitourinary: Denies hematuria Musculoskeletal: Musculoskeletal: Reports no additional musculoskeletal complaints Integumentary/Breasts: Skin/Breast: Denies rash Neurologic: Reports system reviewed and no additional complaints, except as documented Psychiatric: Psychiatric: Reports anxiety Exam Narrative: Exam Narrative: Sister sitting at bedside Const: General: no acute distress and uncomfortable (Very anxious) HENMT: General nose exam: no epistaxis Mouth: Yes moist mucous membranes Eyes: EOM: EOMs intact bilaterally Neck: Neck: supple Resp: Effort & Inspection: normal respiratory effort Auscultation: clear to auscultation bilaterally Cardio: Rate: regular rate Rhythm: regular rhythm Hear
[2020-09-13] MEDS: GABAPENTIN 300 MG CAPSULE PO (20:05)
[2020-09-13 20:32] LABS: Glucose Point of Care 170 (65-105)
[2020-09-14] VITALS (32 sets, daily range): BP systolic 93–137; BP diastolic 50–81; PULSE 52–97; RESP 15–20; TEMP 35.7–36.5; O2SAT 94–100
[2020-09-14 05:32] LABS: Partial Thromboplastin Time 70.5 SECONDS (22.3-36.8)
[2020-09-14 05:48] LABS: NT Pro B Type Natriuretic Pept 2070 pg/mL (5-100)
[2020-09-14] MEDS: HEPARIN SOD/D5W 100 UNITS/ML 25,000 UNITS/250 ML BAG 12 UNITS IV CONT (05:54)
[2020-09-14] MEDS: HEPARIN SODIUM 5,000 UNITS/ML VIAL 3000 UNITS IV PUSH (05:55)
[2020-09-14] MEDS: LEVOTHYROXINE SODIUM 100 MCG TABLET PO (05:55)
--- NOTE | 2020-09-14 08:00 | ECG_ITS ---
Measurements Intervals [place] Rate: 85 P: 48 IN: 173 QRS: -26 QRSD: 122 T: 141 QT: 404 QTc: 482 Interpretive Statements SINUS RHYTHM INTRAVENTRICULAR CONDUCTION DELAY DELAYED PRECORDIAL R/S TRANSITION LEFT VENTRICULAR HYPERTROPHY AND ST-T CHANGE BORDERLINE ECG Electronically Signed On 09-14-2020 8:49:33 CDT by Gary Quiñones D.O.
--- NOTE | 2020-09-14 08:25 | WPDMODSED ---
Moderate Sedation Note-Pt Data Patient Data Diagnosis: Acute coronary syndrome / non ST elevation ID Present Complaint: chest pain/dyspnea Procedure to be performed/Plan: coronary angiography anticipated PCI to circumflex Allergies Allergy/AdvReac Type Severity Reaction Status Date / Time Penicillins Allergy Unknown Verified 01/06/15 10:53 Home Medications Medication Instructions Recorded Confirmed Type cyclobenzaprine 10 mg tablet 10 mg PO DAILY 03/10/19 09/12/20 History aspirin 81 mg tablet,delayed 81 mg PO DAILY 06/13/19 09/12/20 History release magnesium 200 mg tablet 400 mg PO DAILY tablet 09/16/19 09/12/20 History amlodipine 5 mg tablet 5 mg PO DAILY #90 tablet 01/31/20 09/12/20 Rx ascorbic acid (vitamin C) 500 mg PO DAILY 07/06/20 09/12/20 History cilostazol 100 mg PO DAILY 07/06/20 09/12/20 History cyanocobalamin (vitamin B-12) 500 mcg PO DAILY 07/06/20 09/12/20 History gabapentin 300 mg PO HS 07/06/20 09/12/20 History insulin asp prt-insulin aspart 32 unit SUBCUT BID 07/06/20 09/12/20 History [Novolog Mix 70-30FlexPen U-100] levothyroxine 100 mcg PO DAILY 07/06/20 09/12/20 History lisinopril 40 mg PO DAILY 07/06/20 09/12/20 History metformin 1,000 mg tablet 1,000 mg PO QAM 90 Days #90 tablet 07/06/20 09/12/20 Rx furosemide 20 mg PO DAILY #30 tablet 07/09/20 09/12/20 Rx rosuvastatin [Crestor] 10 mg PO QAM #30 tablet 07/09/20 09/12/20 Rx metoprolol succinate 50 mg PO QPM 09/12/20 09/12/20 History Current Medications: Active Medications Aspirin (Aspirin 81 Mg Chewable Tablet) 81 mg PO DAILY@0800 [facility] Cilostazol (Cilostazol 100 Mg Tablet) 100 mg PO DAILY@0800 [facility] Last Admin: 09/14/20 08:20 Dose: Not Given Documented by: Cyclobenzaprine HCl (Cyclobenzaprine Hcl 10 Mg Tablet) 10 mg PO DAILY [facility] Last Admin: 09/13/20 08:49 Dose: 10 mg Documented by: Dextrose (Dextrose 50% 25 Gm/50 Ml Syringe) 12.5 gm IV PUSH PRN PRN; Protocol PRN Reason: Hypoglycemia Furosemide (Furosemide 20 Mg Tablet) 20 mg PO DAILY [facility] Gabapentin (Gabapentin 300 Mg Capsule) 300 mg PO HS [facility] Last Admin: 09/13/20 20:05 Dose: 300 mg Documented by: Glucagon (Glucagon For Inj 1 Mg Vial) 1 mg IM PRN PRN; Protocol PRN Reason: Hypoglycemia Glucose (Glucose Oral Gel 15 Gm Of Glucse In 37.5 Gm Tube) 15 gm PO PRN PRN; Protocol PRN Reason: Hypoglycemia Heparin Sodium (Porcine) (Heparin Sodium 5,000 Units/Ml Vial) 4,000 units IV PUSH PRN PRN PRN Reason: aPTT less than 55 seconds Last Admin: 09/12/20 15:32 Dose: 4,000 units Documented by: Heparin Sodium (Porcine) (Heparin Sodium 5,000 Units/Ml Vial) 3,000 units IV PUSH PRN PRN PRN Reason: aPTT 55 - 70 seconds Last Admin: 09/14/20 05:55 Dose: 3,000 units Documented by: Heparin Sodium/Dextrose (Heparin Sodium/D5w 100 Units/Ml) 25,000 units in 250 mls @ 8 mls/hr IV CONT .Q24H [facility]; Protocol Last Admin: 09/14/20 05:54 Dose: 1,200 units/hr, 12 mls/hr Documented by: Dextrose (Dextrose 5% 1,000 Ml) 1,000 mls @ 100 mls/hr IVPB PRN PRN; Protocol PRN Reason: Hypoglycemia Sodium Chloride (Normal Saline Iv) 500 mls @ 100 mls/hr IV CONT .Q5H [facility] Insulin Aspart (Insuln Asp Prt/Insulin Aspart 100 Units/MlNovolog Mix(*Bkc)) 32 units SUB-Q DAILY@0800 [facility] Last Admin: 09/13/20 08:49 Dose: 32 units Documented by: Insulin Aspart (Insuln Asp Prt/Insulin Aspart 100 Units/MlNovolog Mix(*Bkc)) 30 units SUB-Q DAILY@1700 [facility] Last Admin: 09/13/20 17:52 Dose: 30 units Documented by: Insulin Aspart (Insulin Aspart (*Bkc) 100 Units/Ml) 2 - 5 units SUB-Q TIDWM [facility]; Protocol Last Admin: 09/14/20 08:22 Dose: Not Given Documented by: Levothyroxine Sodium (Levothyroxine Sodium 100 Mcg Tablet) 100 mcg PO DAILY@0630 [facility] Last Admin: 09/14/20 05:55 Dose: 100 mcg Documented by: Lisinopril (Lisinopril 20 Mg Tablet) 40 mg PO DAILY [facility] Last Admin: 09/13/20 13:59 Dose: Not Given Documented by: Metoprolol Succinate (Metoprolol Succinate Ext Rel 50 Mg Tabcr) 50 mg PO QPM [facility] Lucía
[2020-09-14 08:31] LABS: Glucose Point of Care 114 (65-105)
[2020-09-14] MEDS: SODIUM CHLORIDE 0.9% IV 500 ML 100 ML IV CONT (08:33)
[2020-09-14] MEDS: ASPIRIN 81 MG CHEWABLE TABLET PO (08:34)
[2020-09-14] MEDS: CYCLOBENZAPRINE HCL 10 MG TABLET PO (08:35)
[2020-09-14] MEDS: ROSUVASTATIN 10 MG TABLET PO (08:36)
[2020-09-14] MEDS: lisinopriL 20 MG TABLET 40 MG PO (08:36)
--- NOTE | 2020-09-14 08:54 | PM.IMPN ---
Progress Note: A&P Assessment and Plan (1) Acute exacerbation of CHF (congestive heart failure): Qualifiers: Heart failure type: unspecified Qualified Code(s): I50.9 - Heart failure, unspecified Code(s): I50.9 - Heart failure, unspecified Status: Acute Assessment and Plan: Currently on 20 mg of Lasix p.o. a day -she did receive IV Lasix earlier in the stay -BNP down to 1999 -patient has no further SOB -EF 15-20% June 2020 -plan for cardiac catheterization today -continue Lisinopril, spironolactone, aspirin, metoprolol and Lasix -caution Pletal since she has systolic HF, consider discontinuing. Will leave that up to cardiology (2) NSTEMI (non-ST elevated myocardial infarction): Code(s): I21.4 - Non-ST elevation (NSTEMI) myocardial infarction Status: Acute Assessment and Plan: Presents with acute on chronic CHF (shortness of breath), possibly from NSTEMI -Initial troponin 0.112, then elevated troponin of 12.6 and 13.8. Now down to 5.640 -patient had no chest Pain or pressure -she is receiving heparin -cardiac catheterization plan today, await findings -History of known CAD with an 80% circumflex stenosis which previously was asymptomatic. (3) Cardiomyopathy: Qualifiers: Cardiomyopathy type: other Qualified Code(s): I42.8 - Other cardiomyopathies Code(s): I42.9 - Cardiomyopathy, unspecified Status: Acute Assessment and Plan: History of cardiomyopathy, EF 15 - 20% in June 2020. -Has good functional status and has not had any CHF exacerbation since discharge. -encouraged low sodium diet -as above (4) Type 2 diabetes mellitus with hyperglycemia, with long-term current use of insulin: Code(s): E11.65 - Type 2 diabetes mellitus with hyperglycemia; Z79.4 - skilled nursing (current) use of insulin Status: Acute Assessment and Plan: Last glucose 114 -insulin help today since she is NPO for her procedure -will draw A1c, patient states she gets low in the mornings around 40 but takes her insulin anyway -sounds like she may have some confusion on medications and diabetes treatment. Will consult nurses educator Time Spent With Patient Time with patient: 25 - 35 minutes Subjective Date/time seen: 09/14/20 08:54 Interval history: Pt is a 75 y/o female who here for CHF exacerbation/elevated troponin. Patient was seen today and states she feels fine. She has not had any chest pain or shortness of breath now or overnight. She said she is eating and drinking well with no nausea vomiting. She has not had a bowel movement since last which is normal for her because she usually only goes every 6 days. She takes medication for constipation at home but cannot remember what the medication is. Review of Systems Review of Systems: All systems reviewed & are unremarkable except as noted in HPI and below Exam Narrative: Exam Narrative: General: Well developed well nourished patient in NAD HEENT: normocephalic Neck: supple Neuro: Alert and oriented x 4 CV:RRR, telemetry shows occasional PVCs with 1 triplet noted yesterday at 1:30 p.m. Resp:CTA, no crackles Abd: Soft, non distended. No pain to palpation. Positive bowel sounds Extremities: No swelling, erythema, or pain to palpation. Objective Data Vital Signs Vital Signs: Vital Signs - 24 hr 09/13/20 09:24 09/13/20 12:00 09/13/20 12:27 Temperature 96.8 F L Pulse Rate 96 82 82 Respiratory Rate 20 Blood Pressure 74/50 L Pulse Oximetry 100 09/13/20 12:30 09/13/20 13:18 09/13/20 15:34 Temperature Pulse Rate 78 81 81 Respiratory Rate 20 Blood Pressure 95/54 L Pulse Oximetry 100 09/13/20 15:57 09/13/20 17:10 09/13/20 17:52 Temperature 96.2 F L Pulse Rate 102 H 77 93 Respiratory Rate 21 H Blood Pressure 85/52 L Pulse Oximetry 96 09/13/20 17:53 09/13/20 20:00 09/13/20 22:00 Temperature 97.6 F Pulse Ra
[2020-09-14 09:12] LABS: Hemoglobin A1C 8.4 % (<5.7)
--- NOTE | 2020-09-14 09:40 | ECG_ITS ---
Measurements Intervals [place] Rate: 91 P: MT: 0 QRS: -29 QRSD: 117 T: 136 QT: 385 QTc: 475 Interpretive Statements SINUS RHYTHM ATRIAL PREMATURE COMPLEX LEFT VENTRICULAR HYPERTROPHY AND ST-T CHANGE ST-T WAVE ABNORMALITY IN ANTEROLATERAL LEADS- CONSIDER ISCHEMIA ABNORMAL ECG Electronically Signed On 09-14-2020 11:25:22 CDT by Gary Quiñones D.O.
--- NOTE | 2020-09-14 09:45 | P.PCNCC_ITS ---
Cardiac Cath Procedure Note Date of procedure:: 09/14/20 Performing physician:: Mariano Weston MD Indication:: non ST-elevation MD Brief clinical history:: this is a 75-year-old woman recently found to have se val cardiomyopathy. She did have significant proximal circumflex disease which was not the cause of her global myopathy. She has been treated medically with improvement. She now enters the hospital with a non ST elevation MD and follow- up angiography with an eye towards PCI of this circumflex disease has been recommended for today. Procedure Procedure performed:: Coronary angiography PCI(ITA) to the circumflex Sedation/Medication given:: no sedation case start time 9:08 a.m. case end time 9:37 a.m. Access site:: right femoral artery Estimated blood loss:: 15-20 cc Procedure note:: patient was brought to the cardiac catheterization lab in the postabsorptive state where the right femoral triangle was prepared in the normal fashion. Anesthesia was given with 1% lidocaine infiltrated locally. I did not provide any sedation is the patient is known to have a very low ejection fraction. Following puncturing the right femoral artery a 6 Italian vascular sheath was placed. I used a 5 Italian WRP diagnostic catheter to engage and inject the right coronary artery in orthogonal projections. After this I used a 6 Italian CLS 3.5 guiding catheter to engage the left coronary artery. PCI of the circumflex was then carried out as detailed below. Prior to PCI she received 600 mg of clopidogrel and then she was anticoagulated with bolus and infusion of Angiomax. Following conclusion of PCI the sheath was sutured in position she was taken holding area for post PCI recovery stable condition with no evidence of a groin hematoma. Findings:: Hemodynamics: Central aortic pressure 132/82 the left main coronary artery is nicely patent the left anterior descending is medium caliber artery extending down to the apex. There is modest proximal disease in the LAD representing about 30-40% stenosis. Circumflex is a moderate caliber artery giving rise to 1 large marginal branch and a smaller AV groove portion. The proximal circumflex has complex hazy stenosis of 80-85%. This appears to be the culprit lesion. Right coronary artery is caliber to the posterior circulation there is proximal 50-60% RCA disease as well as mid stenosis of about 40-50%. Intervention: The circumflex was wired using a 0.014 forestry pilot 150 coronary guidewire. Following this the target lesion was pre-dilated 2.5 x 20 mm emerge balloon. The target lesion was then stented using a 3.0 by 22 mm Orsiro a drug-eluting stent at 10 atmospheres which provided a excellent patency of the target lesion however at the distal margin of the stent there was edge dissection jeopardizing flow into the circumflex distal to this. I then placed a 2nd 3 x 13 mm Orsiro stent through the device and covering the distal margin after this was deployed at 7 atmospheres the vessel was widely patent the stented segment is wide open there is no residual stenosis dissection disruption or distal embolization. Conclusion:: 1. Coronary artery disease with high-grade stenosis of the proximal circumflex in this lady known to have severe global cardiomyopathy 2. successful PCI of the circumflex lesion with two Orsiro drug-eluting stent 1st performed to treat the target lesion in the 2nd device to address edge dissection created by deployment of the 1st stent. At the conclusion of this the vessel is widely patent with an excellent angiographic appearance Mariano Weston MD [facility]
[2020-09-14 09:58] LABS: Anion Gap 6 mmol/L (8-16); Blood Urea Nitrogen 26 mg/dL (7-17); Calcium 9.8 mg/dL (8.4-10.2); Carbon Dioxide 29 mmol/L (22-30); Chloride 104 mmol/L (98-107); Estimated CRCL calculation 39 ml/min; Estimated Glomerular Filt Rate 49; Glucose 83 mg/dL (65-105); Potassium 3.6 mmol/L (3.4-5.0); Sodium 139 mmol/L (137-145)
--- NOTE | 2020-09-14 12:10 | PCCPR ---
Cardiopulmonary Rehab Services flyer was left on her bedside table as patient is still up in the computer lab assistant.
[2020-09-14] MEDS: SODIUM CHLORIDE 0.9% IV 1,000 ML 125 ML IV CONT (13:00)
[2020-09-14] MEDS: HYDROcodone/acetaminophen (*CRX) 5-325 MG TABLET 1 TAB PO ×2 (13:02→18:50)
--- NOTE | 2020-09-14 13:02 | SUR.PHASEII ---
PT. C/O LOWER BACK ACHE W/ BURNING. LUMBAR AREA REPORTS CHRONIC PAIN IN THAT AREA THAT IS NOW AGGRAVATED BY BEDREST AND LIMITED MOVEMENT. RATES 11/07. DR. SALMERON NOTIFIED OF SUCH. ORDER RECEIVED TO GIVE NORCO 5/325 PO X 1. GIVEN AT THIS TIME PRIOR TO SHEATH PULL FOR COMFORT. PER DR. SALMERON, NO ACT NEEDED DUE TO HEPARIN GTT BEING OFF FOR SEVERAL HOURS.
--- NOTE | 2020-09-14 14:00 | SUR.PHASEII ---
MANUAL SHEATH PULL FROM R. GROIN PER PROTOCOL. 6FR SHEATH DISCONTINUED AND FIRM, STEADY PRESSURE HELD TO SITE UNTIL HEMOSTASIS ACHIEVED. TOLERATED WELL. REPORTS PAIN FREE AT THIS TIME. HEMOSTASIS ACHIEVED AFTER 30 MINUTE PRESSURE HOLD TO SITE BY THIS RN AT 1356. SITE DRESSED WITH STAT SEAL AND TEGADERM. SITE SOFT, NONTENDER, NO BLEEDING OR HEMATOMA NOTED. BEDREST X 6 HOURS WILL COMPLETE AT 1999. IVF'S RUNNINGS. REVIEWED BEDREST ACTIVITY RESTRICTIONS W/ PT. VOICED UNDERSTANDING. URINE CATHETER DRAINING CLEAR YELLOW URINE. WILL CONTINUE TO MONITOR.
--- NOTE | 2020-09-14 14:50 | SUR.PHASEII ---
REPORT CALLED TO JERALD FLORES IN IMU. PT. IS TO RETURN TO IMU 206.2 VIA BED.
--- NOTE | 2020-09-14 15:30 | SUR.PHASEII ---
RETURNED TO IMU 206.2 AFTER HEMOSTASIS X 1 HOUR COMPLETE. REPORT HAS BEEN CALLED TO JERALD FLORES. FADUMO Mercedes [facility] W/ JERALD FLORES AT BEDSIDE.
[2020-09-14 16:45] LABS: Partial Thromboplastin Time 40.5 SECONDS (22.3-36.8)
[2020-09-14 16:57] LABS: Glucose Point of Care 142 (65-105)
[2020-09-14] MEDS: METOPROLOL SUCCINATE EXT REL 50 MG TABCR PO (18:51)
[2020-09-14] MEDS: GABAPENTIN 300 MG CAPSULE PO (20:12)
[2020-09-14 20:21] LABS: Glucose Point of Care 218 (65-105)
[2020-09-15] VITALS (10 sets, daily range): BP systolic 106; BP diastolic 62–65; PULSE 86–97; RESP 12–16; TEMP 36.6–36.8; O2SAT 97–100; BMI 24.6
[2020-09-15] MEDS: LEVOTHYROXINE SODIUM 100 MCG TABLET PO (04:41)
[2020-09-15] MEDS: HYDROcodone/acetaminophen (*CRX) 5-325 MG TABLET 1 TAB PO (04:52)
--- NOTE | 2020-09-15 05:11 | ECG_ITS ---
Measurements Intervals [place] Rate: 87 P: 75 ME: 184 QRS: -20 QRSD: 118 T: 141 QT: 390 QTc: 472 Interpretive Statements SINUS RHYTHM INTRAVENTRICULAR CONDUCTION DELAY LEFT VENTRICULAR HYPERTROPHY AND ST-T CHANGE BORDERLINE R WAVE PROGRESSION, ANTERIOR LEADS BASELINE ARTIFACT- I, II, AVR, AVL, AVF BORDERLINE ECG Electronically Signed On 09-15-2020 9:40:22 CDT by Gary Quiñones D.O.
[2020-09-15 05:21] LABS: Hematocrit 37.5 % (37.0-47.0); Hemoglobin 12.3 g/dL (12.0-15.0); Mean Corpuscular HGB Conc 32.8 g/dl (32-36); Mean Corpuscular Hemoglobin 29.4 pg (26-34); Mean Corpuscular Volume 89.5 fl (80-100); Mean Platelet Volume 9.9 fl (7.4-10.4); Platelet Count Result 218 k/mm3 (150-375); Red Blood Count 4.19 M/mm3 (4.2-5.4); Red Cell Distribution Width 13.8 % (11.5-14.5); White Blood Count 9.3 K/mm3 (4.5-10.0)
[2020-09-15 05:39] LABS: Anion Gap 5 mmol/L (8-16); Blood Urea Nitrogen 23 mg/dL (7-17); Calcium 9.6 mg/dL (8.4-10.2); Carbon Dioxide 28 mmol/L (22-30); Chloride 106 mmol/L (98-107); Estimated CRCL calculation 42 ml/min; Estimated Glomerular Filt Rate 54; Glucose 95 mg/dL (65-105); Sodium 139 mmol/L (137-145)
[2020-09-15 05:46] LABS: NT Pro B Type Natriuretic Pept 2610 pg/mL (5-100)
[2020-09-15 07:07] LABS: Potassium 4.5 mmol/L (3.4-5.0)
[2020-09-15 08:12] LABS: Glucose Point of Care 99 (65-105)
[2020-09-15] MEDS: lisinopriL 20 MG TABLET 40 MG PO (08:48)
[2020-09-15] MEDS: cilostazoL 100 MG TABLET PO (08:48)
[2020-09-15] MEDS: CYCLOBENZAPRINE HCL 10 MG TABLET PO (08:48)
[2020-09-15] MEDS: CLOPIDOGREL BISULFATE 75 MG TABLET PO (08:49)
[2020-09-15] MEDS: SPIRONOLACTONE 25 MG TABLET PO (08:49)
[2020-09-15] MEDS: FUROSEMIDE 20 MG TABLET PO (08:49)
[2020-09-15] MEDS: ASPIRIN 81 MG CHEWABLE TABLET PO (08:49)
[2020-09-15] MEDS: ROSUVASTATIN 10 MG TABLET PO (08:49)
[2020-09-15 12:25] LABS: Glucose Point of Care 103 (65-105)
--- NOTE | 2020-09-15 12:54 | PM.DS ---
DS: Admitting Diagnosis Admitting Diagnosis Admitting Diagnosis: CHF exacerbation, NSTEMI DS: Discharge Diagnosis Discharge Diagnosis (1) Acute exacerbation of CHF (congestive heart failure): Qualifiers: Heart failure type: unspecified Qualified Code(s): I50.9 - Heart failure, unspecified Code(s): I50.9 - Heart failure, unspecified Status: Acute Assessment and Plan: Date of Admission 09/12/20 Date of Discharge 09/15/20 Ms. Jo is a 75yo F with recent diagnosis of heart failure with severely reduced ejection fraction, insulin-dependent type 2 diabetes mellitus who presented to the ED for evaluation of shortness of breath. She was recently diagnosed with new onset of heart failure June 2020 at which time cardiac catheterization showed 80% proximal circumflex lesion which was treated medically as she has not had chest pain. She was discharged at that time with metoprolol, lisinopril, and Lasix with instructions to follow-up with Dr. Andersen. She describes she was feeling well after her hospital discharge up until the day prior to arrival when she woke up out of her sleep feeling more short of breath and presented to the ED for evaluation. Troponins elevated at 0.112 ; 12.6 ; 13.8 ; 11.5 ; 6.46 ; 5.64. BNP up to 7270. She was again seen by Cardiology for NSTEMI and acute CHF exacerbation. She diuresed with additional IV Lasix and her shortness of breath improved. She underwent another cardiac catheterization 09/15/[address] Weston and had 2 drug-eluting stents placed to circumflex. She was started on Plavix and will continue dual anti-platelet therapy with Plavix and aspirin. Her Cilostazol is discontinued due to bleeding risk and CHF history. Just prior to discharge, she had an asymptomatic 8-beat run of NSVT on telemetry. Dr. Conklin returned to her room to discuss this with her and her daughter. He discussed the risks of sudden cardiac from ventricular tachycardia or ventricular fibrillation given her severe dysfunction with EF 15-20% she remains at increased risk for this. He discussed possibility of LifeVest and offered if she would like to remain in the hospital until LifeVest could be arranged prior to discharge. Patient feels well at this time and prefers to discharge and will think about her decision to use LifeVest or not. She is encouraged to call Dr Conklin's office as soon as she makes a decision about LifeVest. She is hemodynamically stable for discharge on 09/15/2020 with instructions to follow-up with Cardiology. We also recommend she follow-up with her test automation architect regarding her insulin regimen. She reported she had seen some blood sugars in the 40s at home and continued to give her insulin. Discussed the risk of hypoglycemia and how to treat low blood sugars. She was seen by the multiple spindle screw machine operator for further teaching. She has encouraged to continue checking her blood sugars regularly and keeping a log to show her healthcare providers at follow-up appointments. She remains on Lasix, spironolactone, metoprolol. Continue aspirin and Plavix. Her cilostazol was discontinued due to bleeding risk and CHF history. Shortness of breath resolved with increased diuresis. (2) NSTEMI (non-ST elevated myocardial infarction): Code(s): I21.4 - Non-ST elevation (NSTEMI) myocardial infarction Status: Acute Assessment and Plan: See above. Troponins elevated up to 13.8. She was having no chest pain. She was treated with heparin GTT, cardiac catheterization as detailed above with 2 drug-eluting stents placed to circumflex. On dual anti-platelet therapy now with Plavix and aspirin. (3) Cardiomyopathy: Qualifiers: Cardiomyopathy type: other Qualified Code(s): I42.8 - Other cardiomyopathies Code(s): I42.9 - Cardiomyopathy, unspecified
--- NOTE | 2020-09-15 13:55 | PM.PNCARD ---
Progress Note: A&P Assessment and Plan (1) NSTEMI (non-ST elevated myocardial infarction): Code(s): I21.4 - Non-ST elevation (NSTEMI) myocardial infarction Status: Acute Assessment and Plan: Patient with stable CHF, acute CHF associated with some indigestion on admission with an elevated troponin of 13, suggesting this is an ACS event/non-STEMI and not all due to CHF itself. Status post 3.0 x 22 mm and 3.0 x 13 mm Orsiro stent to Cx proximal Cx. DAPT uninterrupted with ASA and Plavix. Risk of stent thrombosis and [place] discussed. Must be compliant. Monitor for bleeding. Increased risk with ASA, Plavix, and Cilostazol. Discontinue Cilostazol to reduce bleeding risk and CHF history. Apparently she did not stop this when previously advised. Explained this to patient and daughter. They verbalized understanding. Follow-up as scheduled the next 2 weeks. Stable for discharge home from cardiac perspective. Counseled on precautions, symptoms to monitor red flag concerns at arterial access site. (2) Acute exacerbation of CHF (congestive heart failure): Qualifiers: Heart failure type: unspecified Qualified Code(s): I50.9 - Heart failure, unspecified Code(s): I50.9 - Heart failure, unspecified Status: Acute Assessment and Plan: Diuresing, improving, appears euvolemic. Continue current diuresis. (3) Cardiomyopathy: Qualifiers: Cardiomyopathy type: other Qualified Code(s): I42.8 - Other cardiomyopathies Code(s): I42.9 - Cardiomyopathy, unspecified Status: Acute Assessment and Plan: History of cardiomyopathy, EF 15 - 20% in June 2020. Has good functional status and has not had any CHF exacerbation since discharge. Continue lisinopril, beta-salena etc. optimization as tolerated as outpatient. Continue spironolactone. Subjective Date/time seen: Date of Service: 09/15/20 13:55 Interval history: Follow-up non-STEMI, CHF, cardiomyopathy, CAD with circumflex stenosis. Troponins went up to 13. 09/13/2020: [place] a little woozy today, no chest pain or shortness of breath, no PND or edema. Soft blood pressure at times, once 74/50 generally 95-110/60 mmHg., I's and O's were -1100 mL. Date of service: 09/15/2020 s/p PCI feeling fine. No chest pain or shortness of breath. Ready to goal home. Denies leg pain, dizziness. No bleeding. Daughter at bedside. All questions answered to their satisfaction. Review of Systems Review of Systems: All systems reviewed & are unremarkable except as noted in HPI and below Constitutional: Constitutional: Reports as per HPI, Reports no additional constitutional complaints and Reports fatigue Eyes: Eyes: Reports as per HPI and Reports no additional eye complaints ENT: Reports system reviewed and no additional complaints, except as documented, Reports as per HPI, Denies epistaxis and Denies nasal congestion Cardiovascular: Cardiovascular: Reports as per HPI, Reports no additional cardiovascular complaints, Denies chest pain, Denies pedal edema, Denies leg edema, Reports lightheadedness, Denies palpitations, Denies dyspnea and Denies dyspnea on exertion Respiratory: Respiratory: Reports as per HPI, Reports no additional respiratory complaints, Reports chest congestion (Last night), Denies cough, Denies dyspnea and Denies dyspnea on exertion Gastrointestinal: Gastrointestinal: Reports as per HPI, Reports no additional gastrointestinal complaints, Denies abdominal pain, Denies melena and Denies hematochezia Genitourinary: Genitourinary: Reports no additional female genitourinary complaints, Reports as per HPI and Denies hematuria Musculoskeletal: Musculoskeletal: Reports no additional musculoskeletal complaints, Reports as per HPI and Reports back pain Integumentary/Breasts: Skin/Breast: Reports system reviewe
== END 2020-09-15 15:50 | disposition home or self-care (01) | DRG 246 ==
LOC: ANHED 09-12 02:33 → ANHIMU 09-12 02:52
PROVIDERS: Internal Medicine Cardiovascular Disease; Nurse Practitioner; Physician Assistant; Specialist; Admitting Provider Internal Medicine; Emergency Provider Emergency Medicine; PCP Emergency Medicine; Visit Provider Physician Assistant
PROC: 027035Z Dilation of Coronary Artery, One Artery with Two Drug-eluting Intraluminal Devices, Percutaneous Approach (ICD-10-PCS; CPT 93454; principal; 2020-09-14 08:30)
PROC: 027035Z Dilation of Coronary Artery, One Artery with Two Drug-eluting Intraluminal Devices, Percutaneous Approach (ICD-10-PCS; CPT 92928; 2020-09-14 08:30)
DX: I21.4 Non-ST elevation (NSTEMI) myocardial infarction (principal); I50.23 Acute on chronic systolic (congestive) heart failure; I42.8 Other cardiomyopathies; I47.2 Ventricular tachycardia; I25.10 Atherosclerotic heart disease of native coronary artery without angina pectoris; I11.0 Hypertensive heart disease with heart failure; E11.65 Type 2 diabetes mellitus with hyperglycemia; E11.51 Type 2 diabetes mellitus with diabetic peripheral angiopathy without gangrene; E78.5 Hyperlipidemia, unspecified; E03.9 Hypothyroidism, unspecified; H54.62 Unqualified visual loss, left eye, normal vision right eye; Z79.4 Long term (current) use of insulin; Z79.82 Long term (current) use of aspirin; Z79.899 Other long term (current) drug therapy; Z86.73 Personal history of transient ischemic attack (TIA), and cerebral infarction without residual deficits; Z87.891 Personal history of nicotine dependence; Z88.0 Allergy status to penicillin
CPT/HCPCS: 36415; 71045; 80048; 80053; 81001; 82948; 83036; 83735; 83880; 84484; 85025; 85027; 85610; 85730; 93005; 93454; 96374; 99285; A9270; C1725; C1769; C1874; C1887; C1894; C9600; G0378; J0461; J0583; J1644; J1815; J1940; J2250; J3010; J7030; J7040

== ENCOUNTER 2020-09-27 17:35 | Inpatient (IN) | payer OTHER, SELFPAY ==
[2020-09-27] VITALS (10 sets, daily range): BP systolic 91–146; BP diastolic 67–79; PULSE 108–117; RESP 12–29; TEMP 36.5–36.7; O2SAT 90–99; BMI 24.7
--- NOTE | ~2020-09-27 | XR_ITS ---
XR humerus RT 09/27/2020 19:24 INDICATION: Right arm pain PROCEDURE: 2 views right humerus COMPARISON: No prior studies for comparison. FINDINGS: Fracture, dislocation or subluxation is not identified. The soft tissues appear within norm al limits. No foreign bodies are identified. IMPRESSION: 1: NO ACUTE BONE OR JOINT ABNORMALITY IDENTIFIED. Reviewed, dictated and finalized at location A.
--- NOTE | ~2020-09-27 | XR_ITS ---
EXAMINATION: XR chest 1V portable DATE: 09/27/2020 22:27 INDICATION: Hypoxia. Congestive heart failure. TECHNIQUE: A single frontal view of the chest was obtained on 2 radiographs. COMPARISON: Chest single view 09/12/2020, CT abdomen and pelvis 09/08/2014 FINDINGS: There is no pneumonia, pleural effusion, or pneumothorax. Cardiomegaly is noted. There is a stent graft in abdominal aorta. IMPRESSION: 1. Cardiomegaly. Reviewed, dictated and finalized at location A. IMPRESSION: 1. Cardiomegaly.
--- NOTE | ~2020-09-27 | XR_ITS ---
XR hip RT min 3V w AP pelvis 09/27/2020 19:23 Indication: Right hip pain after fall Procedure: AP pelvis and 3 views right hip Comparison: 10/05/2018 Findings: There is a mildly displaced right femoral neck fracture with varus angulation. Osteopenia. There is osteoarthritis of the hips. No other fracture. Impression: 1: Mildly displaced right femoral neck fracture with varus angulation. Reviewed, dictated and finalized at location A. Impression: 1: Mildly displaced right femoral neck fracture with varus angulation.
--- NOTE | 2020-09-27 19:58 | ED.GENADULT ---
HPI - General Adult General Chief complaint: Fall Stated complaint: fall Time Seen by Provider: 09/27/20 18:56 History of Present Illness HPI narrative: Patient is a 75-year-old female who presents ER with right hip pain. Patient reports she had a fall from standing and fell onto the bar of a building. She was trying to protect her right groin region because she recently had a cardiac catheterization. She struck her right arm on the bar and then landed on her right hip. She did not strike her head or lose consciousness. She takes Plavix. Patient was able to get up and walk but has persistent hip pain. No numbness or tingling to lower extremity. Pain is mildly improved in the hip by elevating her leg on a pillow. Related Data Home Medications Medication Instructions Recorded Confirmed cyclobenzaprine 10 mg tablet 10 mg PO DAILY 03/10/19 09/27/20 magnesium 200 mg tablet 400 mg PO DAILY tablet 09/16/19 09/27/20 ascorbic acid (vitamin C) 500 mg PO DAILY 07/06/20 09/27/20 cyanocobalamin (vitamin B-12) 500 mcg PO DAILY 07/06/20 09/27/20 gabapentin 300 mg PO HS 07/06/20 09/27/20 insulin asp prt-insulin aspart 32 unit SUBCUT QAM 07/06/20 09/27/20 [Novolog Mix 70-30FlexPen U-100] levothyroxine 100 mcg PO DAILY 07/06/20 09/27/20 lisinopril 40 mg PO DAILY 07/06/20 09/27/20 metoprolol succinate 50 mg PO QPM 09/12/20 09/27/20 insulin asp prt-insulin aspart 28 unit SUBCUT QPM 09/27/20 09/27/20 [Novolog Mix 70-30FlexPen U-100] Allergies Allergy/AdvReac Type Severity Reaction Status Date / Time Penicillins Allergy Unknown Rash Verified 09/27/20 22:43 Review of Systems Review of Systems: All systems reviewed & are unremarkable except as noted in HPI and below Constitutional: Constitutional: Denies chills and Denies fever(s) Musculoskeletal: Musculoskeletal: Denies back pain, Reports arthralgias and Denies joint swelling Integumentary/Breasts: Comments: Bruising of the right upper extremity Neurologic: Denies focal weakness and Denies numbness Psychiatric: Psychiatric: Reports depression [facility] Past Medical History Medical History (Updated 09/28/20 @ 04:51 by Dion Durham MD) Cardiomyopathy Echocardiogram June 2020: Left ventricular dimension severely enlarged, systolic function severely reduced EF of 15-20, mildly increased left ventricular wall thickness, grade 2 diastolic dysfunction, left atrial chamber severely enlarged, moderate mitral valve regurgitation, mild tricuspid valve regurgitation, moderate pulmonary hypertension with RVSP of 49 Combined systolic and diastolic congestive heart failure Diabetes mellitus History of CVA (cerebrovascular accident) Ongoing left lower extremity weakness HLD (hyperlipidemia) HTN (hypertension) Hypothyroidism, acquired Loss of vision 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 NSTEMI (non-ST elevated myocardial infarction) (09/12/20) PAD (peripheral artery disease) Type 2 diabetes mellitus with hyperglycemia, with long-term current use of insulin 09/04/2020 hemoglobin A1c 8.4 Vitamin D deficiency, unspecified Surgical History Surgical History (Updated 09/27/20 @ 22:09 by Riya Rubalcava DO) History of cardiac catheterization 07/08/2020 and 09/14/2020: LAD with 30-40% stenosis, 88 85% hazy stenosis proximal circumflex, right coronary artery with 50-60% disease of mild stenosis of about 40-50%, PCI of circumflex with orsiro drug-eluting stent x2 with resultant widely patent vessel S/P AAA (abdominal aortic aneurysm) repair Family History Family History (Updated 09/27/20 @ 23:13 by Kate Guerrero RN) Father Family history of congestive heart failure Family history of alcoholism Carcinoma of colon, Onset Age: 64 Mother Family history of diabetes mellitus in first degree relative Family history of liver disease Pancreatic cancer Sibling Family history of diabetes mellitus in first degree relative Malignant neoplasm of prostate
[2020-09-27] MEDS: MORPHINE SULFATE (*CRX) 4 MG/ML INJ IV PUSH ×2 (20:06→22:32)
[2020-09-27 20:27] LABS: Basophils Absolute Auto 0.1 K/mm3 (0.0-0.1); Basophils Percent Auto 0.6 % (0.2-1.2); Eosinophils Absolute Auto 0.2 K/mm3 (0-0.3); Eosinophils Percent Auto 1.3 % (0-4.4); Hematocrit 42.1 % (37.0-47.0); Hemoglobin 13.6 g/dL (12.0-15.0); Immature Granulocyte Absolute 0.08 K/mm3 (0.00-0.031); Immature Granulocyte Percent A 0.6 % (0-0.5); Lymphocytes Absolute Auto 2.23 K/mm3 (0.9-3.2); Lymphocytes Percent Auto 16.3 % (18.3-44.2); Mean Corpuscular HGB Conc 32.3 g/dl (32-36); Mean Corpuscular Hemoglobin 29.1 pg (26-34); Mean Corpuscular Volume 90.1 fl (80-100); Mean Platelet Volume 9.4 fl (7.4-10.4); Monocytes Absolute Auto 0.8 K/mm3 (0.1-0.6); Monocytes Percent Auto 5.5 % (2.6-8.5); Neutrophils Absolute Auto 10.3 K/mm3 (1.3-6.7); Neutrophils Percent Auto 75.7 % (45.5-73.1); Platelet Count Result 271 k/mm3 (150-375); Red Blood Count 4.67 M/mm3 (4.2-5.4); Red Cell Distribution Width 14.1 % (11.5-14.5); White Blood Count 13.7 K/mm3 (4.5-10.0)
[2020-09-27 20:36] LABS: INR 1.1; Prothrombin Time 14.4 Seconds (11.1-14.7)
[2020-09-27 20:37] LABS: Anion Gap 12 mmol/L (8-16); Blood Urea Nitrogen 31 mg/dL (7-17); Calcium 10.4 mg/dL (8.4-10.2); Carbon Dioxide 21 mmol/L (22-30); Chloride 107 mmol/L (98-107); Estimated CRCL calculation 39 ml/min; Estimated Glomerular Filt Rate 49; Glucose 115 mg/dL (65-105); Potassium 4.6 mmol/L (3.4-5.0); Sodium 140 mmol/L (137-145)
[2020-09-27 20:38] LABS: Partial Thromboplastin Time 27.9 SECONDS (22.3-36.8)
--- NOTE | 2020-09-27 20:50 | PC.NURSE ---
per daughter pt was supposed to start cardiac therapy on monday.
--- NOTE | 2020-09-27 21:37 | PM.IMHP ---
H&P: HPI History of Present Illness Date/Time: 09/27/20 21:37 Chief Complaint: fall Narrative: 75-year-old female a past medical history of combined systolic and diastolic congestive heart failure was severe cardiomyopathy with EF of 15-20% diabetes and dyslipidemia who presented to the ER via EMS after a fall. the patient was able to stand with assistance out of fall and ambulated a couple steps to the stretcher. She did not hit her head or lose consciousness with her fall. She complains of right arm pain right shoulder pain and right hip pain. She reports that her right groin had been hurting for a couple of days prior to her fall. But immediately after her fall she had severe right groin pain. Her pain has only been mildly relieved with morphine. She reports that since her last hospitalization she has not been having any shortness of breath, lower extremity swelling or orthopnea. She has not noticed any palpitations. She has not had any chest pain. She reports that she is still considering the possibility of a LifeVest. She is afraid that is going to cost too much money. She had not been having any dysuria or hematuria. She had a Ibanez catheter placed in the ER. She reports that her legs are always cold below the knees. It sounds as if he may have some symptoms of peripheral neuropathy. Her daughter had been staying with her since her last hospitalization but her daughter trung flight back to [place] this morning. Review of Systems Review of Systems: Narrative: 12 systems were reviewed with pertinent positives and negatives per HPI. Except as documented in the HPI, all other systems were reviewed and are negative. [facility] Past Medical History Medical History (Updated 09/27/20 @ 22:14 by Riya Rubalcava DO) Cardiomyopathy Echocardiogram June 2020: Left ventricular dimension severely enlarged, systolic function severely reduced EF of 15-20, mildly increased left ventricular wall thickness, grade 2 diastolic dysfunction, left atrial chamber severely enlarged, moderate mitral valve regurgitation, mild tricuspid valve regurgitation, moderate pulmonary hypertension with RVSP of 49 Combined systolic and diastolic congestive heart failure Diabetes mellitus History of CVA (cerebrovascular accident) Ongoing left lower extremity weakness HLD (hyperlipidemia) HTN (hypertension) Hypothyroidism, acquired Loss of vision 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 NSTEMI (non-ST elevated myocardial infarction) (09/12/20) PAD (peripheral artery disease) Type 2 diabetes mellitus with hyperglycemia, with long-term current use of insulin 09/04/2020 hemoglobin A1c 8.4 Vitamin D deficiency, unspecified Surgical History Surgical History (Updated 09/27/20 @ 22:09 by Riya Rubalcava DO) History of cardiac catheterization 07/08/2020 and 09/14/2020: LAD with 30-40% stenosis, 88 85% hazy stenosis proximal circumflex, right coronary artery with 50-60% disease of mild stenosis of about 40-50%, PCI of circumflex with orsiro drug-eluting stent x2 with resultant widely patent vessel S/P AAA (abdominal aortic aneurysm) repair Family History Family History (Updated 09/27/20 @ 23:13 by Kate Guerrero RN) Father Family history of congestive heart failure Family history of alcoholism Carcinoma of colon, Onset Age: 64 Mother Family history of diabetes mellitus in first degree relative Family history of liver disease Pancreatic cancer Sibling Family history of diabetes mellitus in first degree relative Malignant neoplasm of prostate Other Family history of cardiovascular disease Family history of primary malignant neoplasm of liver Social History Social History (Updated 09/27/20 @ 23:51 by Riya Rubalcava DO) Social History: She is and lives alone in a senior citizens apartment building. Has sisters who helps her out. She has 1 daughter who lives in [place]. She used to work as
--- NOTE | 2020-09-27 22:31 | ADMGEN ---
This patient, Desiree Jo, was admitted to 2 Medical Room 2229. Patient/family oriented to hospital policies and general routines including ID bracelet, bed and alarms, visiting hours, pain management, procedures, bathroom and other care routines, personal items, smoking policy, room service/diet, and visiting hours. Information on how to activate the Rapid Response Team has been discussed. Patient/Family are encouraged to report perceived risks to care and to ask questions if they do not understand what they are told or what they should do.
[2020-09-27] MEDS: HYDROcodone/acetaminophen (*CRX) 5-325 MG TABLET 1 TAB PO (23:25)
[2020-09-28] VITALS (14 sets, daily range): BP systolic 100–112; BP diastolic 54–74; PULSE 54–111; RESP 16–18; TEMP 36.4–36.6; O2SAT 93–94
--- NOTE | 2020-09-28 | ECG_ITS ---
Measurements Intervals [place] Rate: 90 P: NE: 0 QRS: -27 QRSD: 120 T: 143 QT: 393 QTc: 483 Interpretive Statements SINUS RHYTHM VENTRICULAR PREMATURE COMPLEX INTRAVENTRICULAR CONDUCTION DELAY LEFT VENTRICULAR HYPERTROPHY WITH ST-T CHANGE BORDERLINE R WAVE PROGRESSION, ANTERIOR LEADS BASELINE ARTIFACT- V6 BORDERLINE ECG Electronically Signed On 09-28-2020 10:23:02 CDT by Gary Quiñones D.O.
[2020-09-28] MEDS: METOPROLOL SUCCINATE EXT REL 50 MG TABCR PO ×2 (00:24→17:17)
[2020-09-28] MEDS: MORPHINE SULFATE (*CRX) 4 MG/ML INJ IV PUSH ×2 (00:31→03:54)
[2020-09-28] MEDS: GABAPENTIN 300 MG CAPSULE PO ×2 (00:32→20:31)
[2020-09-28] MEDS: HYDROcodone/acetaminophen (*CRX) 5-325 MG TABLET 1 TAB PO ×3 (05:24→17:17)
[2020-09-28] MEDS: LEVOTHYROXINE SODIUM 100 MCG TABLET PO (05:24)
--- NOTE | 2020-09-28 08:59 | PM.CNOR ---
Assessment and Plan Assessment and plan (1) Displaced fracture of right femoral neck: Code(s): S72.001A - Fracture of unspecified part of neck of right femur, initial encounter for closed fracture Status: Acute Assessment and Plan: 75-year-old female with a right femoral neck fracture. She is at exceptionally high risk for surgical intervention given her past and more importantly recent history. Have to see how things shake out with her clearance. If and when she is cleared, the Plavix and aspirin I do not believe would be an issue for a hip pinning. Based on her x-ray with the anterior angulation and really no impaction, think the most straightforward option for her would be a gentle reduction and pinning. This of course would have to be protected with strict nonweightbearing for a minimum of two months afterwards. Discussed this with the patient this morning. She is unsure what she wants to do at this point. Thank you for the consultation. History of Present Illness HPI Consult date: 09/28/20 Consult reason: fracture Chief complaint: hip fracture Narrative: 75-year-old female who fell yesterday suffering a right femoral neck fracture. This is in the setting of recent stent placement for her myocardial infarction in a patient with very poor heart function and a cardiac output of about 15%. She is also diabetic with poor control and diminished kidney function. Past history well documented in the chart. Review of Systems Constitutional: Constitutional: Denies chills and Denies fever(s) Eyes: Eyes: Reports no additional eye complaints ENT: Reports system reviewed and no additional complaints, except as documented Cardiovascular: Cardiovascular: Denies chest pain and Denies dyspnea on exertion Respiratory: Respiratory: Reports no additional respiratory complaints and Denies dyspnea on exertion Gastrointestinal: Gastrointestinal: Denies abdominal pain and Denies bloating PMFSH Past Medical History Medical History Cardiomyopathy Echocardiogram June 2020: Left ventricular dimension severely enlarged, systolic function severely reduced EF of 15-20, mildly increased left ventricular wall thickness, grade 2 diastolic dysfunction, left atrial chamber severely enlarged, moderate mitral valve regurgitation, mild tricuspid valve regurgitation, moderate pulmonary hypertension with RVSP of 49 Combined systolic and diastolic congestive heart failure Diabetes mellitus History of CVA (cerebrovascular accident) Ongoing left lower extremity weakness HLD (hyperlipidemia) HTN (hypertension) Hypothyroidism, acquired Loss of vision 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 NSTEMI (non-ST elevated myocardial infarction) (09/12/20) PAD (peripheral artery disease) Type 2 diabetes mellitus with hyperglycemia, with long-term current use of insulin 09/04/2020 hemoglobin A1c 8.4 Vitamin D deficiency, unspecified Surgical History Surgical History History of cardiac catheterization 07/08/2020 and 09/14/2020: LAD with 30-40% stenosis, 88 85% hazy stenosis proximal circumflex, right coronary artery with 50-60% disease of mild stenosis of about 40-50%, PCI of circumflex with orsiro drug-eluting stent x2 with resultant widely patent vessel S/P AAA (abdominal aortic aneurysm) repair Family History Family History Father Family history of congestive heart failure Family history of alcoholism Carcinoma of colon, Onset Age: 64 Mother Family history of diabetes mellitus in first degree relative Family history of liver disease Pancreatic cancer Sibling Family history of diabetes mellitus in first degree relative Malignant neoplasm of prostate Other Family history of cardiovascular disease Family history of primary malignant neoplasm of liver
[2020-09-28 09:04] LABS: Glucose Point of Care 143 mg/dl (65-105)
[2020-09-28] MEDS: ASPIRIN 81 MG ENTERIC TABLET PO (09:20)
[2020-09-28] MEDS: metFORMIN HCL 500 MG TABLET 1000 MG PO (09:20)
[2020-09-28] MEDS: ROSUVASTATIN 10 MG TABLET PO (09:21)
[2020-09-28] MEDS: FUROSEMIDE 20 MG TABLET PO (09:21)
[2020-09-28] MEDS: CYANOCOBALAMIN 500 MCG TABLET PO (09:21)
[2020-09-28] MEDS: SPIRONOLACTONE 25 MG TABLET PO (09:21)
[2020-09-28] MEDS: MAGNESIUM OXIDE 400 MG TABLET PO (09:21)
[2020-09-28] MEDS: ASCORBIC ACID 500 MG TABLET PO (09:21)
[2020-09-28] MEDS: CLOPIDOGREL BISULFATE 75 MG TABLET PO (09:22)
[2020-09-28] MEDS: lisinopriL 20 MG TABLET 40 MG PO (09:28)
--- NOTE | 2020-09-28 09:50 | PM.IMPN ---
Progress Note: A&P Assessment and Plan (1) Displaced fracture of right femoral neck: Code(s): S72.001A - Fracture of unspecified part of neck of right femur, initial encounter for closed fracture Status: Acute Assessment and Plan: Patient presents after sustaining a ground level fall without dizziness or syncope; XR demonstrates a mildly displaced right femoral neck fracture. Orthopedic surgery has been consulted - Discussed case and patient risks with Dr. Johnson. Cardiology has been consulted given the patient's significant recent cardiac history - appreciate recommendations. (2) Cardiomyopathy: Qualifiers: Cardiomyopathy type: other Qualified Code(s): I42.8 - Other cardiomyopathies Code(s): I42.9 - Cardiomyopathy, unspecified Status: Acute Assessment and Plan: Patient has known severely reduced EF 15-20%; recent NSTEMI s/p cardiac catheterization with 2 drug-eluting stents to the circumflex on 09/14/2020. Continue home regimen including metoprolol, lisinopril, Lasix as blood pressure allows. Most importantly continue her dual antiplatelet therapy with clopidogrel and aspirin - Dr Johnson aware. Tachycardia noted overnight, suspect related to anxiety and pain. Continue to monitor with telemetry for now, sinus rhythm HR 80bpm this morning. Appreciate cardiology input. (3) Type 2 diabetes mellitus with hyperglycemia, with long-term current use of insulin: Code(s): E11.65 - Type 2 diabetes mellitus with hyperglycemia; Z79.4 - FDC (current) use of insulin Status: Acute Assessment and Plan: Hgb A1c 8.4% 09/14/2020. We will continue her home 70-30 mix insulin at lower doses. Continue to monitor with accu-cheks and adjust treatment as needed, cover with SSI. Subjective Date/time seen: 09/28/20 09:50 Interval history: Ms. Jo is a 75yo F with known cardiomyopathy EF 15-20% and recent NSTEMI s/p catheterization and coronary stenting 09/14/20 admitted for right hip fracture. She rates her right hip discomfort at 6/10 at time of my exam. She is nauseous and overwhelmed, emotional. She denies any chest pain, palpitations, or shortness of breath. Review of Systems Review of Systems: All systems reviewed & are unremarkable except as noted in HPI and below Exam Narrative: Exam Narrative: General: Female resting supine in bed in no acute distress, tearful. HEENT: Normocephalic, EOMI, oral mucosa dry. Cardiovascular: Rate and rhythm are regular. Respiratory: Lungs clear to auscultation bilaterally. Respirations even and non-labored. Tolerating room air. Abdomen: Soft, non-tender, non-distended, bowel sounds present. Some dry blood surrounding a very superficial left lower abdomen skin tear under skin fold, not actively bleeding. Extremities: Peripheral pulses intact. Right lower extremity pain with any manipulation. Ecchymosis to anterior aspect of right upper arm. Cardiac catheterization site to right groin noted, healing well. Neuro: Awake and alert, answering questions appropriately. No focal neurological deficits aside from right leg weakness due to pain. Speech is clear. Objective Data Vital Signs Vital Signs: Last Vital Signs Temp 97.7 F 09/28/20 06:00 Pulse 96 09/28/20 06:00 Resp 16 09/28/20 06:00 BP 100/54 L 09/28/20 06:00 Pulse Ox 94 09/28/20 06:00 Meds/Results Medications: Active Medications Generic Name Dose Route Start Last Admin Trade Name Freq PRN Reason Stop Dose Admin Acetaminophen 650 mg 09/27/20 21:17 Acetaminophen 325 Mg Tablet PO Q4H PRN Mild Pain (1-3) or Fever Hydrocodone Bitart/Acetaminophen 1 tab 09/27/20 21:17 09/28/20 05:24 Hydrocodone/Acetaminophen (*Crx) 5-325 Mg Tablet PO 1 tab Q4H PRN Administration Pain Rated 4-6 Ascorbic Acid 500 mg 05
[2020-09-28] MEDS: ONDANSETRON INJ 4 MG/2 ML VIAL IV PUSH (10:13)
--- NOTE | 2020-09-28 10:39 | PM.CNCAR ---
Assessment and Plan Assessment and plan (1) Displaced fracture of right femoral neck: Code(s): S72.001A - Fracture of unspecified part of neck of right femur, initial encounter for closed fracture Status: Acute Assessment and Plan: 75-year-old female with CAD, status post recent PCI/ITA timesx2 LCX on 09/14/2020; CHF with reduced ejection fraction (cardiomyopathy disproportionate to the CAD) with last LVEF 15-20% on 07/06/2020 echo; diabetes mellitus on insulin; dyslipidemia on PCSK9 inhibitor. Patient admitted to the hospital after she had a fall, found to have mildly displaced right femoral neck fracture with varus angulation. She has significant cardiac history with CHF with reduced ejection fraction, recent LVEF 15-20%; and recent PCI/stenting of LCX on 09/14/2020. At present, patient has baseline NYHA functional class III symptoms. She does not have any ongoing symptoms of angina, or any significant arrhythmias. No significant volume overload at present. She would be a higher risk patient, probably not prohibitive, for any major adverse cardiovascular events in the perioperative period. May consider some minimally invasive option to minimize perioperative risk and provide best possible option for patient getting back on her feet. Patient will need to be continued on dual antiplatelet therapy in the perioperative period, due to recent PCI/stenting. Also recommend continuation of beta-salena, as tolerated. She will need close hemodynamic monitoring. Due to patient's CHF with severely reduced ejection fraction, closely monitor patient's volume status, and avoid excessive IV fluids. Consider DVT prophylaxis. Continue to monitor on telemetry. (2) CAD (coronary artery disease): Qualifiers: Coronary Disease-Associated Artery/Lesion type: [place] artery [place] vs. transplanted heart: [place] heart Associated angina: without angina Qualified Code(s): I25.10 - Atherosclerotic heart disease of [place] coronary artery without angina pectoris Code(s): I25.10 - Atherosclerotic heart disease of [place] coronary artery without angina pectoris Status: Acute Assessment and Plan: Continue dual antiplatelet therapy; beta-salena Patient is on PCSK9 inhibitor as an outpatient Monitor on telemetry (3) CHF (congestive heart failure): Code(s): I50.9 - Heart failure, unspecified Status: Acute Assessment and Plan: See above History of Present Illness History of Present Illness Consult date/time: 09/28/20 10:39 DATE OF CONSULT: 09/28/2020 REASON FOR CONSULT: Surgical clearance, low EF REQUESTING PHYSICIAN:MD Herminio CHIEF COMPLAINT: Fall, right hip pain HPI: 75-year-old female with CAD, status post recent PCI/ITA times to LCX on 09/14/2020; CHF with reduced ejection fraction (cardiomyopathy disproportionate to the CAD) with last LVEF 15-20% on 07/06/2020 echo; diabetes mellitus on insulin; dyslipidemia on PCSK9 inhibitor. Patient presented to [facility] on 09/27/2020 with right hip pain after she had a fall. She denied any preceding symptoms of chest pain, palpitations, shortness of breath, dizziness, syncope. Hip x-ray showed mildly displaced right femoral neck fracture with varus angulation. Patient has been evaluated by Orthopedic surgery. Cardiology was consulted for preoperative cardiovascular evaluation. Patient has significant cardiac history and recently had PCI/stenting on 09/14/2020. She has CHF with reduced ejection fraction. At baseline, patient states that she is able to walk 50 yd before she gets short of breath. She denies any recent episodes of angina. She reports compliance with medical regimen including dual antiplatelet therapy. EKG on my personal evaluation showed sinus rhythm, PVC, intraventricular conduction delay, LVH with ST-T abnormality. On telemetry, patient has been in sinus rhythm. Reason For Visit: hip fracture Review of Systems Review of Systems:
[2020-09-28] MEDS: SERTRALINE HCL 25 MG TABLET PO (10:50)
--- NOTE | 2020-09-28 11:00 | PC.NURSE ---
Dr. Johnson noticed some blood around the patient's groin area. I assessed the patient and noted dry blood under the left side of the patient's abdomen. The patient had a telemetry wire under her abdominal fold that caused excoriation to the area. The area was cleaned and dried. center medical and lab director assessed previous cardiac cath site and determined there was no bleeding from the area. They determined the only bleed was from the abdominal area.
[2020-09-28 12:12] LABS: Glucose Point of Care 149 mg/dl (65-105)
[2020-09-28] MEDS: ACETAMINOPHEN 325 MG TABLET 650 MG PO (15:40)
[2020-09-28 16:16] LABS: Glucose Point of Care 75 mg/dl (65-105)
[2020-09-28 21:38] LABS: Glucose Point of Care 126 mg/dl (65-105)
[2020-09-29] VITALS (11 sets, daily range): BP systolic 104–118; BP diastolic 60–72; PULSE 58–85; RESP 16–18; TEMP 36.4–36.5; O2SAT 93–96
[2020-09-29 05:03] LABS: Basophils Absolute Auto 0.1 K/mm3 (0.0-0.1); Basophils Percent Auto 0.8 % (0.2-1.2); Eosinophils Absolute Auto 0.4 K/mm3 (0-0.3); Eosinophils Percent Auto 4.2 % (0-4.4); Hematocrit 38.1 % (37.0-47.0); Hemoglobin 12.2 g/dL (12.0-15.0); Immature Granulocyte Absolute 0.04 K/mm3 (0.00-0.031); Immature Granulocyte Percent A 0.5 % (0-0.5); Lymphocytes Absolute Auto 1.78 K/mm3 (0.9-3.2); Lymphocytes Percent Auto 21.3 % (18.3-44.2); Mean Corpuscular Hemoglobin 28.7 pg (26-34); Mean Corpuscular Volume 89.6 fl (80-100); Mean Platelet Volume 9.6 fl (7.4-10.4); Monocytes Absolute Auto 0.6 K/mm3 (0.1-0.6); Monocytes Percent Auto 6.8 % (2.6-8.5); Neutrophils Absolute Auto 5.5 K/mm3 (1.3-6.7); Neutrophils Percent Auto 66.4 % (45.5-73.1); Platelet Count Result 226 k/mm3 (150-375); Red Blood Count 4.25 M/mm3 (4.2-5.4); Red Cell Distribution Width 14.3 % (11.5-14.5); White Blood Count 8.3 K/mm3 (4.5-10.0)
[2020-09-29 05:18] LABS: Anion Gap 6 mmol/L (8-16); Blood Urea Nitrogen 32 mg/dL (7-17); Calcium 9.6 mg/dL (8.4-10.2); Carbon Dioxide 26 mmol/L (22-30); Chloride 106 mmol/L (98-107); Estimated CRCL calculation 36 ml/min; Estimated Glomerular Filt Rate 44; Glucose 120 mg/dL (65-105); Magnesium 2.1 mg/dL (1.6-2.3); Potassium 4.9 mmol/L (3.4-5.0); Sodium 138 mmol/L (137-145)
[2020-09-29] MEDS: HYDROcodone/acetaminophen (*CRX) 5-325 MG TABLET 1 TAB PO (06:16)
[2020-09-29] MEDS: LEVOTHYROXINE SODIUM 100 MCG TABLET PO (06:17)
[2020-09-29 07:28] LABS: Glucose Point of Care 173 mg/dl (65-105)
[2020-09-29] MEDS: ACETAMINOPHEN 325 MG TABLET 650 MG PO (07:30)
[2020-09-29] MEDS: CYCLOBENZAPRINE HCL 10 MG TABLET PO (07:31)
[2020-09-29] MEDS: ASCORBIC ACID 500 MG TABLET PO (08:42)
[2020-09-29] MEDS: CLOPIDOGREL BISULFATE 75 MG TABLET PO (08:42)
[2020-09-29] MEDS: ASPIRIN 81 MG ENTERIC TABLET PO (08:42)
[2020-09-29] MEDS: lisinopriL 20 MG TABLET 40 MG PO (08:42)
[2020-09-29] MEDS: FUROSEMIDE 20 MG TABLET PO (08:42)
[2020-09-29] MEDS: metFORMIN HCL 500 MG TABLET 1000 MG PO (08:42)
[2020-09-29] MEDS: CYANOCOBALAMIN 500 MCG TABLET PO (08:42)
[2020-09-29] MEDS: ROSUVASTATIN 10 MG TABLET PO (08:43)
[2020-09-29] MEDS: SPIRONOLACTONE 25 MG TABLET PO (08:43)
[2020-09-29] MEDS: SERTRALINE HCL 25 MG TABLET PO (08:43)
[2020-09-29] MEDS: MAGNESIUM OXIDE 400 MG TABLET PO (08:43)
--- NOTE | 2020-09-29 09:24 | PM.IMPN ---
Progress Note: A&P Assessment and Plan (1) Displaced fracture of right femoral neck: Code(s): S72.001A - Fracture of unspecified part of neck of right femur, initial encounter for closed fracture Status: Acute Assessment and Plan: Patient presents after sustaining a ground level fall without dizziness or syncope; XR demonstrates a mildly displaced right femoral neck fracture. Orthopedic surgery has been consulted - Discussed case and patient risks with Dr. Johnson. Patient tells me this morning she has not yet decided on surgery and needs to speak with her daughter and Dr Johnson. Daughter flying into town this morning. Cardiology has been consulted given the patient's significant recent cardiac history - appreciate recommendations. (2) Cardiomyopathy: Qualifiers: Cardiomyopathy type: other Qualified Code(s): I42.8 - Other cardiomyopathies Code(s): I42.9 - Cardiomyopathy, unspecified Status: Acute Assessment and Plan: Patient has known severely reduced EF 15-20%; recent NSTEMI s/p cardiac catheterization with 2 drug-eluting stents to the circumflex on 09/14/2020. Continue home regimen including metoprolol, lisinopril, Lasix as blood pressure allows. Most importantly continue her dual antiplatelet therapy with clopidogrel and aspirin - Dr Johnson aware. Continue to monitor with telemetry for now, sinus rhythm HR 80bpm this morning. Appreciate cardiology input. (3) Type 2 diabetes mellitus with hyperglycemia, with long-term current use of insulin: Code(s): E11.65 - Type 2 diabetes mellitus with hyperglycemia; Z79.4 - intermediate manager (current) use of insulin Status: Acute Assessment and Plan: Hgb A1c 8.4% 09/14/2020. We will continue her home 70-30 mix insulin at lower doses. Continue to monitor with accu-cheks and adjust treatment as needed, cover with SSI. Recently prescribed Praluent due to statin intolerance however she has not yet started this medication and it is non-formulary, will hold. Subjective Date/time seen: 09/29/20 0845 Interval history: Ms. Jo is a 75yo F with known cardiomyopathy EF 15-20% and recent NSTEMI s/p catheterization and coronary stenting 09/14/20 admitted for right hip fracture. She is uncomfortable and rates her right hip pain 8/10 at time of my encounter. She was able to sleep some. She denies chest pain, palpitations or shortness of breath. She has eaten some breakfast and denies nausea or vomiting. Review of Systems Review of Systems: All systems reviewed & are unremarkable except as noted in HPI and below Exam Narrative: Exam Narrative: General: Female resting supine in bed in no acute distress, uncomfortable. HEENT: Normocephalic, EOMI, oral mucosa dry. Cardiovascular: Rate and rhythm are regular. Respiratory: Lungs clear to auscultation bilaterally. Respirations even and non-labored. Tolerating room air. Abdomen: Soft, non-tender, non-distended, bowel sounds present. Extremities: Peripheral pulses intact. Right lower extremity pain with any movement. Ecchymosis to anterior aspect of right upper arm. Cardiac catheterization site to right groin noted, healing well. Neuro: Awake and alert, answering questions appropriately. No focal neurological deficits aside from right leg weakness due to pain. Speech is clear. Objective Data Vital Signs Vital Signs: Last Vital Signs Temp 97.6 F 09/29/20 05:39 Pulse 58 L 09/29/20 05:39 Resp 16 09/29/20 05:39 BP 118/60 09/29/20 08:48 Pulse Ox 95 09/29/20 05:39 Intake/Output Intake/Output: Intake & Output 09/26/20 09/27/20 09/28/20 09/29/20 23:59 23:59 23:59 23:59 Intake Total 310 250 Output Total 550 400 Balance -240 -150 Meds/Results Medications: Active Medications Generic Name Dose Route Start Last Admin Trade Name Yon Lino
[2020-09-29] MEDS: oxyCODONE/ACETAMINOPHEN (*CRX) 5-325 MG TABLET 1 TABLET PO ×4 (09:53→22:27)
[2020-09-29 11:47] LABS: Glucose Point of Care 114 mg/dl (65-105)
--- NOTE | 2020-09-29 12:45 | PM.PNORT ---
Progress Note: A&P Assessment and Plan (1) Displaced fracture of right femoral neck: Code(s): S72.001A - Fracture of unspecified part of neck of right femur, initial encounter for closed fracture Status: Acute Assessment and Plan: 75-year-old female with a left femoral neck fracture. I did discuss again with the patient in person and with her daughter by telephone surgical versus nonsurgical options. I do not know if there is a clear-cut best answer at this point . I did review the cardiology note and noted increased perioperative risks particularly with her cardiac status and recent GA. With surgery she is still going to be limited significantly for at least eight weeks if not longer while this is healing enough for her to be able to put weight on it however without surgery her mortality risks is pretty high as well. The patient and her daughter will discuss it more today and then let us know this afternoon or this evening with a would like to do. If they elect for surgery then we will see about getting it scheduled for tomorrow. Following. Subjective Subjective Date/Time Seen: 09/29/20 12:45 Principal diagnosis: Right femoral neck fracture Exam Const: General: cooperative, comfortable and no acute distress Nutritional Appearance: well nourished ( BMI 24.8) Psych: Mental Status: mental status grossly normal Objective Data Vital Signs Vital Signs: Vital Signs - 24 hr 09/28/20 14:00 09/28/20 16:00 09/28/20 17:05 Temperature 97.8 F Pulse Rate 89 85 80 Respiratory Rate 16 Blood Pressure 102/74 108/64 Pulse Oximetry 94 09/28/20 17:17 09/28/20 20:00 09/28/20 21:26 Temperature 97.5 F L Pulse Rate 80 80 54 L Respiratory Rate 18 Blood Pressure 110/68 Pulse Oximetry 93 09/29/20 00:00 09/29/20 04:00 09/29/20 05:39 Temperature 97.6 F Pulse Rate 78 80 58 L Respiratory Rate 16 Blood Pressure 118/72 Pulse Oximetry 95 09/29/20 08:00 09/29/20 08:48 09/29/20 12:00 Temperature Pulse Rate 80 66 Respiratory Rate Blood Pressure 118/60 Pulse Oximetry Intake/Output Intake/Output: Intake & Output 09/26/20 09/27/20 09/28/20 09/29/20 23:59 23:59 23:59 23:59 Intake Total 310 / 310 430 / 430 Output Total 550 / 550 400 / 400 Balance -240 / -240 Meds/Results Medications: Active Medications Generic Name Dose Route Start Last Admin Trade Name Yon PRN Reason Stop Dose Admin Acetaminophen 650 mg 09/27/20 21:17 09/29/20 07:30 Acetaminophen 325 Mg Tablet PO 650 mg Q4H PRN Administration Mild Pain (1-3) or Fever Ascorbic Acid 500 mg 09/28/20 09:00 09/29/20 08:42 Ascorbic Acid 500 Mg Tablet PO 500 mg DAILY KIARRA Administration Aspirin 81 mg 09/28/20 09:00 09/29/20 08:42 Aspirin 81 Mg Enteric Tablet PO 81 mg DAILY KIARRA Administration Clopidogrel Bisulfate 75 mg 09/28/20 09:00 09/29/20 08:42 Clopidogrel Bisulfate 75 Mg Tablet PO 75 mg QAM KIARRA Administration Cyanocobalamin 500 mcg 09/28/20 09:00 09/29/20 08:42 Cyanocobalamin 500 Mcg Tablet PO 500 mcg DAILY KIARRA Administration Cyclobenzaprine HCl 10 mg 09/28/20 07:54 09/29/20 07:31 Cyclobenzaprine Hcl 10 Mg Tablet PO 10 mg DAILY PRN Administration Muscle Spasm Dextrose 12.5 gm 09/27/20 22:22 Dextrose 50% 25 Gm/50 Ml Syringe IV PUSH PRN PRN Hypoglycemia Protocol Furosemide 20 mg 09/28/20 09:00 09/29/20 08:42 Furosemide 20 Mg Tablet PO 20 mg DAILY KIARRA Administration Gabapentin 300 mg 09/28/20 00:05 09/28/20 20:31 Gabapentin 300 Mg Capsule PO 300 mg HS KIARRA Administration Glucagon 1 mg 09/27/20 22:22 Glucagon For Inj 1 Mg Vial IM PRN PRN Hypoglycemia Protocol Glucose 15 gm 09/27/20 22:22 Glucose Oral Gel 15 Gm Of Glucse In 37.5 Gm Tube PO PRN PRN Hypoglycemia Protocol Dextrose 1,000 mls @ 100 mls/hr 09/27/20 22:22 Dextrose 5
--- NOTE | 2020-09-29 16:31 | PM.PNCARD ---
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 Patient admitted to the hospital after she had a fall, found to have mildly displaced right femoral neck fracture with varus angulation. She has significant cardiac history with CHF with reduced ejection fraction, recent LVEF 15-20%; and recent PCI/stenting of LCX on 09/14/2020. At present, patient has baseline NYHA functional class III symptoms. She does not have any ongoing symptoms of angina, or any significant arrhythmias. No significant volume overload at present. She would be a higher risk patient, probably not prohibitive, for any major adverse cardiovascular events in the perioperative period. May consider some minimally invasive option to minimize perioperative risk and provide best possible option for patient getting back on her feet. Patient will need to be continued on dual antiplatelet therapy in the perioperative period, due to recent PCI/stenting. Also recommend continuation of beta-salena, as tolerated. She will need close hemodynamic monitoring. Due to patient's CHF with severely reduced ejection fraction, closely monitor patient's volume status, and avoid excessive IV fluids. Consider DVT prophylaxis. Continue to monitor on telemetry. (2) CAD (coronary artery disease): Qualifiers: Associated angina: without angina Coronary Disease-Associated Artery/Lesion type: [place] artery [place] vs. transplanted heart: [place] heart Qualified Code(s): I25.10 - Atherosclerotic heart disease of [place] coronary artery without angina pectoris Code(s): I25.10 - Atherosclerotic heart disease of [place] coronary artery without angina pectoris Status: Acute Assessment and Plan: Continue dual antiplatelet therapy; beta-salena Patient is on PCSK9 inhibitor as an outpatient Monitor on telemetry (3) CHF (congestive heart failure): Code(s): I50.9 - Heart failure, unspecified Status: Acute Assessment and Plan: See above -Patient asks about the possibility of needing a LifeVest. Apparently this was discussed with her at her last hospitalization but she declined LifeVest at that time due to concerns about cost. Discussed with patient that she is at high risk for sudden cardiac given her newly diagnosed EF of 15 to 20%. She understands and would like to proceed with a LifeVest if it is not cost prohibitive. I will order the LifeVest for her and check with Gregg mehta about cost. Subjective Date/time seen: 09/29/20 16:31 cardiology follow-up for CHF, CAD. Date of service 09/29/2020: Patient is doing well today and does not have any cardiovascular complaints of any kind. She does state that she has some pain in her right leg when she attempts to sit up or roll over. She says that after weighing the options of surgery versus no surgical intervention on her fractured hip she has decided that she is going to defer surgery for now. Review of Systems Review of Systems: All systems reviewed & are unremarkable except as noted in HPI and below Exam Narrative: Exam Narrative: Elderly female. Alert and oriented x3. Pleasant and cooperative. Const: General: comfortable and no acute distress HENMT: Mouth: Yes moist mucous membranes Eyes: General: appearance normal, both eyes and all related structures Sclera: sclerae normal Pupils: Equal, round and reactive pupils present Neck: Neck: supple and no JVD Resp: Effort & Inspection: normal respiratory effort Auscultation: clear to
[2020-09-29 17:09] LABS: Glucose Point of Care 155 mg/dl (65-105)
[2020-09-29] MEDS: METOPROLOL SUCCINATE EXT REL 50 MG TABCR PO (17:58)
[2020-09-29] MEDS: GABAPENTIN 300 MG CAPSULE PO (20:26)
[2020-09-29 21:13] LABS: Glucose Point of Care 128 mg/dl (65-105)
[2020-09-30] VITALS (11 sets, daily range): BP systolic 110–126; BP diastolic 63–70; PULSE 69–93; RESP 16–20; TEMP 36.4–36.7; O2SAT 98
[2020-09-30] MEDS: oxyCODONE/ACETAMINOPHEN (*CRX) 5-325 MG TABLET 1 TABLET PO ×5 (05:15→23:04)
[2020-09-30] MEDS: LEVOTHYROXINE SODIUM 100 MCG TABLET PO (05:30)
[2020-09-30 05:54] LABS: Anion Gap 9 mmol/L (8-16); Blood Urea Nitrogen 31 mg/dL (7-17); Calcium 9.4 mg/dL (8.4-10.2); Carbon Dioxide 28 mmol/L (22-30); Chloride 103 mmol/L (98-107); Estimated CRCL calculation 36 ml/min; Estimated Glomerular Filt Rate 44; Glucose 104 mg/dL (65-105); Potassium 4.3 mmol/L (3.4-5.0); Sodium 140 mmol/L (137-145)
[2020-09-30 07:42] LABS: Glucose Point of Care 129 mg/dl (65-105)
[2020-09-30] MEDS: metFORMIN HCL 500 MG TABLET 1000 MG PO (08:26)
[2020-09-30] MEDS: ASCORBIC ACID 500 MG TABLET PO (08:27)
[2020-09-30] MEDS: ASPIRIN 81 MG ENTERIC TABLET PO (08:27)
[2020-09-30] MEDS: lisinopriL 20 MG TABLET 40 MG PO (08:28)
[2020-09-30] MEDS: CYANOCOBALAMIN 500 MCG TABLET PO (08:28)
[2020-09-30] MEDS: CLOPIDOGREL BISULFATE 75 MG TABLET PO (08:28)
[2020-09-30] MEDS: FUROSEMIDE 20 MG TABLET PO (08:28)
[2020-09-30] MEDS: MAGNESIUM OXIDE 400 MG TABLET PO (08:28)
[2020-09-30] MEDS: SERTRALINE HCL 25 MG TABLET PO (08:29)
[2020-09-30] MEDS: ROSUVASTATIN 10 MG TABLET PO (08:29)
[2020-09-30] MEDS: SPIRONOLACTONE 25 MG TABLET PO (08:29)
--- NOTE | 2020-09-30 09:55 | PM.IMPN ---
Progress Note: A&P Assessment and Plan (1) Displaced fracture of right femoral neck: Code(s): S72.001A - Fracture of unspecified part of neck of right femur, initial encounter for closed fracture Status: Acute Assessment and Plan: Patient presents after sustaining a ground level fall without dizziness or syncope; XR demonstrates a mildly displaced right femoral neck fracture. Orthopedic surgery has been consulted - sounds like she may have decided against surgery at this time. Cardiology has been consulted given the patient's significant recent cardiac history - appreciate recommendations. Notes reviewed. Case management working on placement. (2) Cardiomyopathy: Qualifiers: Cardiomyopathy type: other Qualified Code(s): I42.8 - Other cardiomyopathies Code(s): I42.9 - Cardiomyopathy, unspecified Status: Acute Assessment and Plan: Patient has known severely reduced EF 15-20%; recent NSTEMI s/p cardiac catheterization with 2 drug-eluting stents to the circumflex on 09/14/2020. Continue home regimen including metoprolol, lisinopril, Lasix as blood pressure allows. Most importantly continue her dual antiplatelet therapy with clopidogrel and aspirin. Continue to monitor with telemetry for now. Appreciate cardiology input. Notes indicate she is now interested in LifeSay[employer]. (3) Type 2 diabetes mellitus with hyperglycemia, with long-term current use of insulin: Code(s): E11.65 - Type 2 diabetes mellitus with hyperglycemia; Z79.4 - longterm (current) use of insulin Status: Acute Assessment and Plan: Hgb A1c 8.4% 09/14/2020. We will continue her home 70-30 mix insulin at lower doses. Continue to monitor with accu-cheks and adjust treatment as needed, cover with SSI. Recently prescribed Praluent due to statin intolerance however she has not yet started this medication and it is non-formulary, will hold. Subjective Date/time seen: 09/30/20 0945 Interval history: Ms. Jo is a 75yo F with known cardiomyopathy EF 15-20% and recent NSTEMI s/p catheterization and coronary stenting 09/14/20 admitted for right hip fracture. She seems a bit more comfortable than yesterday. Was able to sleep a bit last night. She denies chest pain, palpitations, or shortness of breath. Poor appetite without abdominal pain, nausea or vomiting. Review of Systems Review of Systems: All systems reviewed & are unremarkable except as noted in HPI and below Exam Narrative: Exam Narrative: General: Female resting supine in bed in no acute distress. HEENT: Normocephalic, EOMI, oral mucosa dry. Cardiovascular: Rate and rhythm are regular. Respiratory: Lungs clear to auscultation bilaterally. Respirations even and non-labored. Tolerating room air. Abdomen: Soft, non-tender, non-distended, bowel sounds present. Extremities: Peripheral pulses intact. Right lower extremity pain with any movement. Ecchymosis to anterior aspect of right upper arm. Cardiac catheterization site to right groin noted, healing well. Neuro: Awake and alert, answering questions appropriately. No focal neurological deficits aside from right leg weakness due to pain. Speech is clear. Objective Data Vital Signs Vital Signs: Last Vital Signs Temp 97.6 F 09/30/20 07:00 Pulse 73 09/30/20 07:00 Resp 18 09/30/20 07:00 BP 117/63 09/30/20 07:00 Pulse Ox 98 09/30/20 09:58 Intake/Output Intake/Output: Intake & Output 09/27/20 09/28/20 09/29/20 09/30/20 23:59 23:59 23:59 23:59 Intake Total 310 890 410 Output Total 550 1500 300 Balance -240 -610 110 Meds/Results Medications: Active Medications Generic Name Dose Route Start Last Admin Trade Name Freq PRN Reason Stop Dose Admin Acetaminophen 650 mg 09/27/20 21:17 09/29/20 07:30 Acetaminophen 325 Mg Tablet PO
--- NOTE | 2020-09-30 10:42 | PM.PNCARD ---
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 Patient admitted to the hospital after she had a fall, found to have mildly displaced right femoral neck fracture with varus angulation. She has significant cardiac history with CHF with reduced ejection fraction, recent LVEF 15-20%; and recent PCI/stenting of LCX on 09/14/2020. At present, patient has baseline NYHA functional class III symptoms. She does not have any ongoing symptoms of angina, or any significant arrhythmias. No significant volume overload at present. She would be a higher risk patient, probably not prohibitive, for any major adverse cardiovascular events in the perioperative period. May consider some minimally invasive option to minimize perioperative risk and provide best possible option for patient getting back on her feet. Patient will need to be continued on dual antiplatelet therapy in the perioperative period, due to recent PCI/stenting. Also recommend continuation of beta-salena, as tolerated. She will need close hemodynamic monitoring. Due to patient's CHF with severely reduced ejection fraction, closely monitor patient's volume status, and avoid excessive IV fluids. Consider DVT prophylaxis. Continue to monitor on telemetry. <LATIA Goddard - Last Filed: 09/30/20 10:51> (2) CAD (coronary artery disease): Qualifiers: Associated angina: without angina Coronary Disease-Associated Artery/Lesion type: [place] artery [place] vs. transplanted heart: [place] heart Qualified Code(s): I25.10 - Atherosclerotic heart disease of [place] coronary artery without angina pectoris <LATIA Goddard - Last Filed: 09/30/20 10:51> Code(s): I25.10 - Atherosclerotic heart disease of [place] coronary artery without angina pectoris <LATIA Goddard - Last Filed: 09/30/20 10:51> Status: Acute <LATIA Goddard - Last Filed: 09/30/20 10:51> Assessment and Plan: Continue dual antiplatelet therapy; beta-salena Patient is on PCSK9 inhibitor as an outpatient Monitor on telemetry <LATIA Goddard - Last Filed: 09/30/20 10:51> (3) CHF (congestive heart failure): Code(s): I50.9 - Heart failure, unspecified <LATIA Goddard - Last Filed: 09/30/20 10:51> Status: Acute <LATIA Goddard - Last Filed: 09/30/20 10:51> Assessment and Plan: See above -LifeVest ordered. If cost prohibitive she will not proceed with being fitted for LifeVest. Currently she is not exhibiting any clinical signs of heart failure. <LATIA Goddard - Last Filed: 09/30/20 10:51> Subjective Date/time seen: 09/30/20 10:42 cardiology follow-up <LATIA Goddard - Last Filed: 09/30/20 10:51> Interval history: Date of service 09/30/2020: Patient continues to deny any cardiac complaints today. She does state that she is in quite a bit of pain from her right hip injury. She seems quite depressed about her situation today. <LATIA Goddard - Last Filed: 09/30/20 10:51> Review of Systems Review of Systems: All systems reviewed & are unremarkable except as noted in HPI and below <LATIA Goddard - Last Filed: 09/30/20 10:51> Constitutional: Constitutional: Denies difficulty sleeping, Denies fatigue, Reports lethargy and Denies weakness <LATIA Goddard - Last Filed:
[2020-09-30 11:57] LABS: Glucose Point of Care 120 mg/dl (65-105)
[2020-09-30] MEDS: METOPROLOL SUCCINATE EXT REL 50 MG TABCR PO (17:12)
[2020-09-30 17:19] LABS: Glucose Point of Care 156 mg/dl (65-105)
[2020-09-30] MEDS: GABAPENTIN 300 MG CAPSULE PO (20:04)
[2020-09-30 20:42] LABS: Glucose Point of Care 122 mg/dl (65-105)
[2020-10-01] VITALS (11 sets, daily range): BP systolic 116–127; BP diastolic 55–62; PULSE 61–85; RESP 16–18; TEMP 36.3–36.6; O2SAT 96–99
[2020-10-01] MEDS: oxyCODONE/ACETAMINOPHEN (*CRX) 5-325 MG TABLET 1 TABLET PO ×3 (05:06→14:23)
[2020-10-01 05:35] LABS: Hematocrit 41.3 % (37.0-47.0); Hemoglobin 13.2 g/dL (12.0-15.0)
[2020-10-01 05:45] LABS: Anion Gap 10 mmol/L (8-16); Blood Urea Nitrogen 31 mg/dL (7-17); Calcium 9.4 mg/dL (8.4-10.2); Carbon Dioxide 27 mmol/L (22-30); Chloride 101 mmol/L (98-107); Estimated CRCL calculation 39 ml/min; Estimated Glomerular Filt Rate 49; Glucose 107 mg/dL (65-105); Potassium 4.1 mmol/L (3.4-5.0); Sodium 138 mmol/L (137-145)
[2020-10-01] MEDS: CYCLOBENZAPRINE HCL 10 MG TABLET PO (06:03)
[2020-10-01] MEDS: LEVOTHYROXINE SODIUM 100 MCG TABLET PO (06:03)
[2020-10-01] MEDS: metFORMIN HCL 500 MG TABLET 1000 MG PO (09:02)
[2020-10-01] MEDS: CYANOCOBALAMIN 500 MCG TABLET PO (09:03)
[2020-10-01] MEDS: ASCORBIC ACID 500 MG TABLET PO (09:03)
[2020-10-01] MEDS: FUROSEMIDE 20 MG TABLET PO (09:03)
[2020-10-01] MEDS: CLOPIDOGREL BISULFATE 75 MG TABLET PO (09:03)
[2020-10-01] MEDS: ASPIRIN 81 MG ENTERIC TABLET PO (09:03)
[2020-10-01] MEDS: lisinopriL 20 MG TABLET 40 MG PO (09:04)
[2020-10-01] MEDS: ROSUVASTATIN 10 MG TABLET PO (09:04)
[2020-10-01] MEDS: SERTRALINE HCL 25 MG TABLET PO (09:04)
[2020-10-01] MEDS: MAGNESIUM OXIDE 400 MG TABLET PO (09:04)
[2020-10-01] MEDS: SPIRONOLACTONE 25 MG TABLET PO (09:04)
--- NOTE | 2020-10-01 11:58 | PM.IMPN ---
Progress Note: A&P Assessment and Plan (1) Displaced fracture of right femoral neck: Code(s): S72.001A - Fracture of unspecified part of neck of right femur, initial encounter for closed fracture Status: Acute Assessment and Plan: Patient presents after sustaining a ground level fall without dizziness or syncope; XR demonstrates a mildly displaced right femoral neck fracture. Orthopedic surgery has been consulted. After multiple discussions and risk stratification, opted for conservative management at this time. Cardiology has been consulted given the patient's significant recent cardiac history - appreciate recommendations. Notes reviewed. Case management working on placement. Anticipate possible discharge tomorrow if she gets her LifeVest. (2) Cardiomyopathy: Qualifiers: Cardiomyopathy type: other Qualified Code(s): I42.8 - Other cardiomyopathies Code(s): I42.9 - Cardiomyopathy, unspecified Status: Acute Assessment and Plan: Patient has known severely reduced EF 15-20%; recent NSTEMI s/p cardiac catheterization with 2 drug-eluting stents to the circumflex on 09/14/2020. Continue home regimen including metoprolol, lisinopril, Lasix as blood pressure allows. Most importantly continue her dual antiplatelet therapy with clopidogrel and aspirin. Continue to monitor with telemetry for now. Appreciate cardiology input. Awaiting LifeVest. (3) Type 2 diabetes mellitus with hyperglycemia, with long-term current use of insulin: Code(s): E11.65 - Type 2 diabetes mellitus with hyperglycemia; Z79.4 - predatory animal exterminator (current) use of insulin Status: Acute Assessment and Plan: Hgb A1c 8.4% 09/14/2020. Blood sugars appropriate. She is not eating much of anything. We will continue her home 70-30 mix insulin at lower doses. Continue to monitor with accu-cheks and adjust treatment as needed, cover with SSI. Recently prescribed Praluent due to statin intolerance however she has not yet started this medication and it is non-formulary, will hold. Subjective Date/time seen: 10/01/20 1100 Interval history: Ms. Jo is a 75yo F with known cardiomyopathy EF 15-20% and recent NSTEMI s/p catheterization and coronary stenting 09/14/20 admitted for right hip fracture. She was seen sitting up in the chair, reports her pain is controlled at present since she is not moving but she has signficant pain with movement. She denies chest pain, palpitations, or shortness of breath. Poor appetite without abdominal pain, nausea or vomiting. Review of Systems Review of Systems: All systems reviewed & are unremarkable except as noted in HPI and below Exam Narrative: Exam Narrative: General: Female resting sitting up in bedside chair in no acute distress. Flat, withdrawn. HEENT: Normocephalic, EOMI, oral mucosa moist. Cardiovascular: Rate and rhythm are regular. Respiratory: Lungs clear to auscultation bilaterally. Respirations even and non-labored. Tolerating room air. Abdomen: Soft, non-tender, non-distended, bowel sounds present. Extremities: Peripheral pulses intact. Ecchymosis to anterior aspect of right upper arm. Cardiac catheterization site to right groin noted, healing well. Neuro: Awake and alert, answering questions appropriately. No focal neurological deficits aside from right leg weakness due to pain. Speech is clear. Objective Data Vital Signs Vital Signs: Last Vital Signs Temp 97.8 F 10/01/20 04:42 Pulse 74 10/01/20 04:42 Resp 16 10/01/20 04:42 BP 117/62 10/01/20 04:42 Pulse Ox 96 10/01/20 04:42 Intake/Output Intake/Output: Intake & Output 09/28/20 09/29/20 09/30/20 10/01/20 23:59 23:59 23:59 23:59 Intake Total 590 093 5144 490 Output Total 550 1500 700 400 Balance -240 -610 450 90 Meds/Results Medications: Active Medi
--- NOTE | 2020-10-01 14:54 | PM.PNCARD ---
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 Patient admitted to the hospital after she had a fall, found to have mildly displaced right femoral neck fracture with varus angulation. She has significant cardiac history with CHF with reduced ejection fraction, recent LVEF 15-20%; and recent PCI/stenting of LCX on 09/14/2020. At present, patient has baseline NYHA functional class III symptoms. She does not have any ongoing symptoms of angina, or any significant arrhythmias. No significant volume overload at present. She would be a higher risk patient, probably not prohibitive, for any major adverse cardiovascular events in the perioperative period. May consider some minimally invasive option to minimize perioperative risk and provide best possible option for patient getting back on her feet. Patient will need to be continued on dual antiplatelet therapy in the perioperative period, due to recent PCI/stenting. Also recommend continuation of beta-salena, as tolerated. She will need close hemodynamic monitoring. Due to patient's CHF with severely reduced ejection fraction, closely monitor patient's volume status, and avoid excessive IV fluids. Consider DVT prophylaxis. Continue to monitor on telemetry. (2) CAD (coronary artery disease): Qualifiers: Coronary Disease-Associated Artery/Lesion type: [place] artery [place] vs. transplanted heart: [place] heart Associated angina: without angina Qualified Code(s): I25.10 - Atherosclerotic heart disease of [place] coronary artery without angina pectoris Code(s): I25.10 - Atherosclerotic heart disease of [place] coronary artery without angina pectoris Status: Acute Assessment and Plan: Continue dual antiplatelet therapy; beta-salena Patient is on PCSK9 inhibitor as an outpatient Monitor on telemetry (3) CHF (congestive heart failure): Code(s): I50.9 - Heart failure, unspecified Status: Acute Assessment and Plan: See above -recently diagnosed systolic dysfunction with an ejection fraction of 15-20% following PCI in August 2020. -She has been fitted for her LifeVest. -on medical therapy with PING, furosemide, BB, spironalactone Subjective Date/time seen: 10/01/20 14:54 Interval history: Cardiology follow-up for CAD, heart failure 10/01/2020: Patient is doing a little better today in terms of her hip pain. She says the plan is for her to be discharged to rehab tomorrow. Her mood is also a bit better today. Her daughter is at the bedside. She has just been fitted with her life vest. Review of Systems Review of Systems: All systems reviewed & are unremarkable except as noted in HPI and below Constitutional: Constitutional: Denies difficulty sleeping, Denies fatigue, Denies headache(s), Reports lethargy and Denies weakness Eyes: Eyes: Denies change in vision ENT: Reports Normal hearing present and Denies headache(s) Cardiovascular: Cardiovascular: Denies chest pain, Denies pedal edema, Denies leg edema, Denies palpitations and Denies dyspnea Respiratory: Respiratory: Denies dyspnea Gastrointestinal: Gastrointestinal: Denies abdominal pain, Denies constipation and Denies diarrhea Musculoskeletal: Musculoskeletal: Reports myalgias Integumentary/Breasts: Skin/Breast: Reports unusual bruising Neurologic: Reports Normal hearing present, Denies Abnormal speech present, Denies confusion, Denies headache(s) and Denies weakness Psychiatric: Psychiatric: Denies confusion and Repor
[2020-10-01 16:44] LABS: Glucose Point of Care 97 mg/dl (65-105)
[2020-10-01 16:44] LABS: Glucose Point of Care 121 mg/dl (65-105)
[2020-10-01 16:45] LABS: Glucose Point of Care 83 mg/dl (65-105)
[2020-10-01] MEDS: METOPROLOL SUCCINATE EXT REL 50 MG TABCR PO (17:46)
[2020-10-01] MEDS: GABAPENTIN 300 MG CAPSULE PO (20:48)
[2020-10-01] MEDS: GLUCOSE ORAL GEL 15 GM OF GLUCSE IN 37.5 GM TUBE PO (20:52)
[2020-10-01 20:59] LABS: Glucose Point of Care 59 mg/dl (65-105)
[2020-10-01 21:29] LABS: Glucose Point of Care 87 mg/dl (65-105)
[2020-10-02] VITALS: PULSE 66
[2020-10-02 04:00] VITALS: PULSE 62
[2020-10-02] MEDS: oxyCODONE/ACETAMINOPHEN (*CRX) 5-325 MG TABLET 1 TABLET PO ×2 (05:04→09:07)
[2020-10-02 05:36] VITALS: BP 113/59; PULSE 82; RESP 18; TEMP 36.2; O2SAT 97
[2020-10-02] MEDS: LEVOTHYROXINE SODIUM 100 MCG TABLET PO (06:36)
[2020-10-02 07:42] LABS: Glucose Point of Care 162 mg/dl (65-105)
[2020-10-02 08:00] VITALS: PULSE 64
[2020-10-02] MEDS: metFORMIN HCL 500 MG TABLET 1000 MG PO (08:55)
[2020-10-02] MEDS: ASCORBIC ACID 500 MG TABLET PO (08:57)
[2020-10-02] MEDS: CLOPIDOGREL BISULFATE 75 MG TABLET PO (08:57)
[2020-10-02] MEDS: ASPIRIN 81 MG ENTERIC TABLET PO (08:57)
[2020-10-02] MEDS: CYANOCOBALAMIN 500 MCG TABLET PO (08:58)
[2020-10-02] MEDS: lisinopriL 20 MG TABLET 40 MG PO (08:58)
[2020-10-02] MEDS: SERTRALINE HCL 25 MG TABLET PO (08:58)
[2020-10-02] MEDS: SPIRONOLACTONE 25 MG TABLET PO (08:58)
[2020-10-02] MEDS: FUROSEMIDE 20 MG TABLET PO (08:58)
[2020-10-02] MEDS: ROSUVASTATIN 10 MG TABLET PO (08:58)
[2020-10-02] MEDS: MAGNESIUM OXIDE 400 MG TABLET PO (08:58)
[2020-10-02] MEDS: polyethylene glycoL 3350 17 GM POWD.PACK PO (09:45)
[2020-10-02] MEDS: BISACODYL 5 MG TABLET EC PO (09:45)
--- NOTE | 2020-10-02 10:31 | PM.DS ---
DS: Admitting Diagnosis Admitting Diagnosis Admitting Diagnosis: Hip fracture DS: Discharge Diagnosis Discharge Diagnosis (1) Displaced fracture of right femoral neck: Code(s): S72.001A - Fracture of unspecified part of neck of right femur, initial encounter for closed fracture Status: Acute Assessment and Plan: Date of Admission 09/27/20 Date of Discharge 10/02/20 Ms. Jo is a 75yo F with history of CHF, cardiomyopathy with severely reduced EF 15-20% recently admitted for NSTEMI s/p cardiac catheterization with 2 drug-eluting stents to the circumflex 09/14/20, diabetes and dyslipidemia who presented to the ED for evaluation right hip pain and ambulatory dysfunction after a mechanical fall. Denied dizziness or loss of consciousness. Imaging demonstrated a mildly displaced right femoral neck fracture. Orthopedic surgery was consulted and she was evaluated by Dr. Johnson. Given her significant cardiac history, she was evaluated by Cardiology for perioperative risk assessment. She remains at high risk for adverse cardiac event in the postoperative period and many detailed discussions were held between providers and patient/family regarding her treatment options for the fracture. Ultimately patient and family have opted for conservative management without surgical intervention at this time. Prior to her recent discharge a couple weeks ago, she was offered LifeVest given her severely reduced ejection fraction and her high risk for sudden cardiac and arrhythmias. During this admission, she has decided she would like to proceed with LifeVest. LifeVest was fitted prior to discharge. Per Orthopedic recommendations, she remained nonweightbearing on the right leg and to be bed to chair pivoting on the left leg. She is hemodynamically stable for discharge on 10/02/2020 to SNF and instructions to follow-up with Cardiology. She remains on her dual anti-platelet therapy with Plavix and aspirin. Her appetite is very poor, she is not eating much. Her home insulin is held. Staff at SNF to continue monitoring her blood sugars regularly as her insulin will likely need added back when her appetite increases. Patient presents after sustaining a ground level fall without dizziness or syncope; XR demonstrates a mildly displaced right femoral neck fracture. Orthopedic surgery has been consulted. After multiple discussions and risk stratification, opted for conservative management at this time. (2) Cardiomyopathy: Qualifiers: Cardiomyopathy type: other Qualified Code(s): I42.8 - Other cardiomyopathies Code(s): I42.9 - Cardiomyopathy, unspecified Status: Acute Assessment and Plan: Patient has known severely reduced EF 15-20%; recent NSTEMI s/p cardiac catheterization with 2 drug-eluting stents to the circumflex on 09/14/2020. Continue home regimen including metoprolol, lisinopril, Lasix as blood pressure allows. Most importantly continue her dual antiplatelet therapy with clopidogrel and aspirin. Life vest placed before discharge. (3) Type 2 diabetes mellitus with hyperglycemia, with long-term current use of insulin: Code(s): E11.65 - Type 2 diabetes mellitus with hyperglycemia; Z79.4 - terminal operator (current) use of insulin Status: Acute Assessment and Plan: Hgb A1c 8.4% 09/14/2020. Blood sugars appropriate. She is not eating much of anything. We will continue her home 70-30 mix insulin at lower doses. Continue to monitor with accu-cheks and adjust treatment as needed, cover with SSI. Recently prescribed Praluent due to statin intolerance however she has not yet started this medication and it is non-formulary, will hold. DS: Summary Hospital Course Hospital Course: See above Time Spent with Patient Time attestation: Total time
--- NOTE | 2020-10-02 10:59 | PM.PNCARD ---
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 Patient admitted to the hospital after she had a fall, found to have mildly displaced right femoral neck fracture with varus angulation. She has significant cardiac history with CHF with reduced ejection fraction, recent LVEF 15-20%; and recent PCI/stenting of LCX on 09/14/2020. At present, patient has baseline NYHA functional class III symptoms. She does not have any ongoing symptoms of angina, or any significant arrhythmias. No significant volume overload at present. She would be a higher risk patient, probably not prohibitive, for any major adverse cardiovascular events in the perioperative period. May consider some minimally invasive option to minimize perioperative risk and provide best possible option for patient getting back on her feet. Patient will need to be continued on dual antiplatelet therapy in the perioperative period, due to recent PCI/stenting. Also recommend continuation of beta-salena, as tolerated. She will need close hemodynamic monitoring. Due to patient's CHF with severely reduced ejection fraction, closely monitor patient's volume status, and avoid excessive IV fluids. Consider DVT prophylaxis. Continue to monitor on telemetry. (2) CAD (coronary artery disease): Qualifiers: Coronary Disease-Associated Artery/Lesion type: [place] artery [place] vs. transplanted heart: [place] heart Associated angina: without angina Qualified Code(s): I25.10 - Atherosclerotic heart disease of [place] coronary artery without angina pectoris Code(s): I25.10 - Atherosclerotic heart disease of [place] coronary artery without angina pectoris Status: Acute Assessment and Plan: Continue dual antiplatelet therapy; beta-salena Patient is on PCSK9 inhibitor as an outpatient Monitor on telemetry (3) CHF (congestive heart failure): Code(s): I50.9 - Heart failure, unspecified Status: Acute Assessment and Plan: See above -recently diagnosed systolic dysfunction with an ejection fraction of 15-20% following PCI in August 2020. -She has been fitted for her LifeVest. -on medical therapy with PING, furosemide, BB, spironalactone No changes today Subjective Date/time seen: 10/02/20 10:59 Interval history: Cardiology follow-up for CAD, heart failure 10/02/2020: Complains of leg pain. No chest pain or shortness of breath Review of Systems Review of Systems: All systems reviewed & are unremarkable except as noted in HPI and below Constitutional: Constitutional: Denies difficulty sleeping, Denies fatigue, Denies headache(s), Reports lethargy and Denies weakness Eyes: Eyes: Denies change in vision ENT: Reports Normal hearing present and Denies headache(s) Cardiovascular: Cardiovascular: Denies chest pain, Denies pedal edema, Denies leg edema, Denies palpitations and Denies dyspnea Respiratory: Respiratory: Denies dyspnea Gastrointestinal: Gastrointestinal: Denies abdominal pain, Denies constipation and Denies diarrhea Musculoskeletal: Musculoskeletal: Reports myalgias Integumentary/Breasts: Skin/Breast: Reports unusual bruising Neurologic: Reports Normal hearing present, Denies Abnormal speech present, Denies confusion, Denies headache(s) and Denies weakness Psychiatric: Psychiatric: Denies confusion and Reports depression Endocrine: Endocrine: Denies fatigue and Denies palpitations Exam Narrative: Exam Narrative: Elderly female. Alert and oriented x3. Pleasant
[2020-10-02] MEDS: CYCLOBENZAPRINE HCL 10 MG TABLET PO (11:21)
[2020-10-02 11:51] LABS: Glucose Point of Care 154 mg/dl (65-105)
[2020-10-02 12:00] VITALS: PULSE 72
--- NOTE | 2020-10-02 13:00 | PC.NURSE ---
Patient c/o constipation. Given Miralax and Dulcolax tab. Patient refused suppository. States she is passing a lot of gas and feels like she will have a BM with the laxatives alone. Patient also voided small amount in BSC after reynolds catheter d/radha. Notified Anuradha at [place] that reynolds d/radha and to monitor for voiding issues.
== END 2020-10-02 14:05 | DRG 535 ==
LOC: ANHED 20:55 → ANH2MED 21:26
PROVIDERS: Physician Assistant; Admitting Provider Internal Medicine; Emergency Provider Emergency Medicine; PCP Emergency Medicine; Visit Provider Family Medicine
DX: S72.001A Fracture of unspecified part of neck of right femur, initial encounter for closed fracture (principal); I21.4 Non-ST elevation (NSTEMI) myocardial infarction; I42.8 Other cardiomyopathies; I50.22 Chronic systolic (congestive) heart failure; I11.0 Hypertensive heart disease with heart failure; W18.30XA Fall on same level, unspecified, initial encounter; E11.51 Type 2 diabetes mellitus with diabetic peripheral angiopathy without gangrene; E11.65 Type 2 diabetes mellitus with hyperglycemia; E03.9 Hypothyroidism, unspecified; E78.5 Hyperlipidemia, unspecified; E55.9 Vitamin D deficiency, unspecified; Z79.4 Long term (current) use of insulin; Z79.899 Other long term (current) drug therapy; Z88.0 Allergy status to penicillin; Z86.73 Personal history of transient ischemic attack (TIA), and cerebral infarction without residual deficits; Z87.891 Personal history of nicotine dependence; Z95.5 Presence of coronary angioplasty implant and graft
CPT/HCPCS: 36415; 71045; 73060; 73502; 80048; 82948; 83735; 85014; 85018; 85025; 85610; 85730; 93005; 96374; 96376; 97110; 97161; 97530; 99285; A9270; G0378; J1815; J2270; J2405

== ENCOUNTER 2020-10-17 11:53 | Inpatient (IN) | payer OTHER, SELFPAY ==
[2020-10-17] VITALS (9 sets, daily range): BP systolic 100–147; BP diastolic 56–95; PULSE 76–88; RESP 12–21; TEMP 36.8–36.9; O2SAT 95–99; BMI 23.9
--- NOTE | ~2020-10-17 | CT_ITS ---
EXAMINATION: CT brain wo con DATE: 10/17/2020 19:40 INDICATION: Confusion TECHNIQUE: Computed tomography (CT) of the head was performed without intravenous contrast. The mA wa s adjusted according to patient size. Iterative reconstruction technique was employed. Exam dose: 60 5.33 mGy-cm total exam DLP. COMPARISON: None FINDINGS: Chronic lacunar infarct of left thalamus and left greater than right basal ganglia chronic lacunar infarcts. Chronic left frontal and left occipital infarct. Prominent bilateral carotid siphon internal carotid artery calcifications. There is nonspecific dimin ished attenuation of the cerebral white matter, likely due to chronic small vessel ischemic changes. No intracranial mass lesion or hemorrhage, midline shift or mass effect effect is detected. No subdur al or epidural hematoma. No fracture or bone destruction of the cranial vault. Included mastoid air cells and paranasal sinuses are normally developed and aerated. No fracture or bone destruction of the cranial vault. IMPRESSION: Old left frontal and occipital infarcts, chronic left thalamic lacunar infarct and bilat eral left greater than right chronic basal ganglia lacunar infarcts Cerebral atherosclerosis and chronic small vessel ischemic changes of the cerebral white matter No acute intracranial finding Reviewed, dictated and finalized at [facility]. Reviewed, dictated and finalized at [facility]. IMPRESSION: Old left frontal and occipital infarcts, chronic left thalamic lac unar infarct and bilateral left greater than right chronic basal ganglia lacuna r infarcts Cerebral atherosclerosis and chronic small vessel ischemic changes of the cereb ral white matter No acute intracranial finding
--- NOTE | ~2020-10-17 | XR_ITS ---
EXAMINATION: XR hip RT min 2V DATE: 10/17/2020 13:06 INDICATION: Right hip pain TECHNIQUE: Two views of right hip were obtained. COMPARISON: 09/27/2020 FINDINGS: Again noted is a subcapital fracture of the right femoral neck. There is mildly increasing displacement of the distal fracture fragment. No new fracture is identified. There is a partially layo ged aortobiiliac stent graft. Calcified atherosclerosis is noted. IMPRESSION: 1. Subcapital fracture of the right femoral neck with mildly worsened displacement. Reviewed, dictated and finalized at [facility]. IMPRESSION: 1. Subcapital fracture of the right femoral neck with mildly worsened displacem ent.
--- NOTE | ~2020-10-17 | XR_ITS ---
EXAMINATION: XR chest 2V DATE: 10/17/2020 13:06 INDICATION: History of congestive heart failure TECHNIQUE: Frontal and lateral views of the chest are obtained COMPARISON: 09/27/2020 FINDINGS: The lungs are free of acute opacities. There is no pleural effusion or pneumothorax. There is stable cardiomegaly. An external defibrillator device projects over the chest. There is moderate t horacic spondylosis. An endoluminal abdominal aortic stent is noted. IMPRESSION: 1. Stable cardiomegaly. Reviewed, dictated and finalized at [facility]. IMPRESSION: 1. Stable cardiomegaly.
--- NOTE | 2020-10-17 11:55 | ECG_ITS ---
Measurements Intervals [place] Rate: 87 P: 86 CA: 175 QRS: -38 QRSD: 122 T: 140 QT: 371 QTc: 448 Interpretive Statements SINUS RHYTHM LEFT AXIS DEVIATION LEFT VENTRICULAR HYPERTROPHY AND ST-T CHANGE ST-T WAVE ABNORMALITY IN ANTEROLAT/HIGH LAT LEADS- CONSIDER ISCHEMIA ABNORMAL ECG Electronically Signed On 10-17-2020 14:20:59 CDT by Gary Quiñones D.O.
[2020-10-17 12:26] LABS: Basophils Absolute Auto 0.1 K/mm3 (0.0-0.1); Basophils Percent Auto 0.6 % (0.2-1.2); Eosinophils Absolute Auto 0.2 K/mm3 (0-0.3); Eosinophils Percent Auto 1.4 % (0-4.4); Hematocrit 45.3 % (37.0-47.0); Hemoglobin 14.7 g/dL (12.0-15.0); Immature Granulocyte Absolute 0.05 K/mm3 (0.00-0.031); Immature Granulocyte Percent A 0.5 % (0-0.5); Lymphocytes Absolute Auto 1.68 K/mm3 (0.9-3.2); Lymphocytes Percent Auto 15.9 % (18.3-44.2); Mean Corpuscular HGB Conc 32.5 g/dl (32-36); Mean Corpuscular Hemoglobin 28.9 pg (26-34); Mean Corpuscular Volume 89.2 fl (80-100); Mean Platelet Volume 9.6 fl (7.4-10.4); Monocytes Absolute Auto 0.8 K/mm3 (0.1-0.6); Monocytes Percent Auto 7.9 % (2.6-8.5); Neutrophils Absolute Auto 7.8 K/mm3 (1.3-6.7); Neutrophils Percent Auto 73.7 % (45.5-73.1); Platelet Count Result 224 k/mm3 (150-375); Red Blood Count 5.08 M/mm3 (4.2-5.4); Red Cell Distribution Width 14.6 % (11.5-14.5); White Blood Count 10.6 K/mm3 (4.5-10.0)
[2020-10-17 12:39] LABS: Alanine Aminotransferase 13 U/L (4-35); Albumin Level 4.7 g/dL (3.5-5.1); Alkaline Phosphatase 128 U/L (38-126); Anion Gap 17 mmol/L (8-16); Aspartate Amino Transferase 27 U/L (14-36); Bilirubin,Total 0.6 mg/dL (0.2-1.3); Blood Urea Nitrogen 69 mg/dL (7-17); Calcium 11.1 mg/dL (8.4-10.2); Carbon Dioxide 20 mmol/L (22-30); Chloride 102 mmol/L (98-107); Estimated CRCL calculation 15 ml/min; Estimated Glomerular Filt Rate 16; Glucose 133 mg/dL (65-105); Potassium 5.6 mmol/L (3.4-5.0); Sodium 139 mmol/L (137-145)
[2020-10-17 12:50] LABS: Add Urine Microscopic? YES; Appearance Urine Clear (Clear); Bacteria Urine 4+ /hpf; Bilirubin Urine Negative (Negative); Blood Urine Negative (Negative); Color Urine Yellow (Yellow); Glucose Urine UA Negative (Negative); Ketones Urine Negative (Negative); Leukocyte Esterase Ur Trace LEU/UL (Negative); Mucus Urine Rare /lpf; Nitrate Urine Positive (Negative); Protein Urine Negative (Negative); RBC Urine 0-2 /hpf (0-2); Specific Grav Ur 1.013 (1.001-1.035); Urobilinogen Urine Negative mg/dL (<2.0)
--- NOTE | 2020-10-17 13:33 | ED.AMS ---
HPI - Altered Mental Status General Chief Complaint: Altered Mental Status Stated Complaint: ams Time Seen by Provider: 10/17/20 12:15 Source: family and old records reviewed Mode of arrival: EMS Limitations: clinical condition and dementia History of Present Illness HPI narrative: 75-year-old female Sent from SNF for increased confusion, apparently usually oriented x4 now oriented x2-3 She has a significant cardiac history, with cardiomyopathy with an ejection fraction of around 15%, and had 4 stents placed roughly a month ago About 10 days after that she had a fall and has a nondisplaced and impacted right femoral neck fracture which apparently is being treated nonoperatively with rehab Notable medications include oxycodone gabapentin and sertraline She has noticed decreased urine output for the last 2 days, does not have a feeling that she needs to void, but denies dysuria She really denies any other specific complaints, there is no cough fever or shortness of breath, no vomiting or diarrhea Related Data Home Medications Medication Instructions Recorded Confirmed cyclobenzaprine 10 mg tablet 10 mg PO DAILY 03/10/19 09/27/20 magnesium 200 mg tablet 400 mg PO DAILY tablet 09/16/19 09/27/20 ascorbic acid (vitamin C) 500 mg PO DAILY 07/06/20 09/27/20 cyanocobalamin (vitamin B-12) 500 mcg PO DAILY 07/06/20 09/27/20 gabapentin 300 mg PO HS 07/06/20 09/27/20 insulin asp prt-insulin aspart 32 unit SUBCUT QAM 07/06/20 09/27/20 [Novolog Mix 70-30FlexPen U-100] levothyroxine 100 mcg PO DAILY 07/06/20 09/27/20 lisinopril 40 mg PO DAILY 07/06/20 09/27/20 metoprolol succinate 50 mg PO QPM 09/12/20 09/27/20 insulin asp prt-insulin aspart 28 unit SUBCUT QPM 09/27/20 09/27/20 [Novolog Mix 70-30FlexPen U-100] clopidogrel 75 mg PO QAM 09/28/20 09/28/20 Allergies Allergy/AdvReac Type Severity Reaction Status Date / Time Penicillins Allergy Unknown Rash Verified 09/27/20 22:43 Review of Systems Review of Systems: ROS unobtainable: Yes unobtainable due to medical condition and other (Limited due to confusion) Constitutional: Constitutional: Denies chills, Denies fever(s) and Denies headache(s) ENT: Denies headache(s) Cardiovascular: Cardiovascular: Denies dyspnea Respiratory: Respiratory: Denies cough and Denies dyspnea Gastrointestinal: Gastrointestinal: Denies abdominal pain, Denies diarrhea and Denies vomiting Genitourinary: Genitourinary: Denies urinary frequency, Denies nocturia and Denies dysuria Musculoskeletal: Musculoskeletal: Denies deformity and Denies numbness Integumentary/Breasts: Skin/Breast: Denies wounds PMFSH Past Medical History Medical History Cardiomyopathy Echocardiogram June 2020: Left ventricular dimension severely enlarged, systolic function severely reduced EF of 15-20, mildly increased left ventricular wall thickness, grade 2 diastolic dysfunction, left atrial chamber severely enlarged, moderate mitral valve regurgitation, mild tricuspid valve regurgitation, moderate pulmonary hypertension with RVSP of 49 Combined systolic and diastolic congestive heart failure Diabetes mellitus History of CVA (cerebrovascular accident) Ongoing left lower extremity weakness HLD (hyperlipidemia) HTN (hypertension) Hypothyroidism, acquired Loss of vision 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 NSTEMI (non-ST elevated myocardial infarction) (09/12/20) PAD (peripheral artery disease) Type 2 diabetes mellitus with hyperglycemia, with long-term current use of insulin 09/04/2020 hemoglobin A1c 8.4 Vitamin D deficiency, unspecified Surgical History Surgical History History of cardiac catheterization 07/08/2020 and 09/14/2020: LAD with 30-40% stenosis, 88 85% hazy stenosis proximal circumflex, right coronary artery with 50-60% disease of mild stenosis of about 40-50%, PCI of circumflex with
[2020-10-17 14:25] LABS: Creatinine Urine 80.8 mg/dL
[2020-10-17 14:30] LABS: Sodium Urine Random 73 meq/L
[2020-10-17] MEDS: ACETAMINOPHEN 325 MG TABLET 650 MG PO (15:35)
--- NOTE | 2020-10-17 17:40 | PC.NURSE ---
This patient, Desiree Jo, was admitted to [facility] Room 323-01. Patient/family oriented to hospital policies and general routines including ID bracelet, bed and alarms, visiting hours, pain management, procedures, bathroom and other care routines, personal items, smoking policy, room service/diet, and visiting hours. Report received from Chip RN Information on how to activate the Rapid Response Team has been discussed. Patient/Family are encouraged to report perceived risks to care and to ask questions if they do not understand what they are told or what they should do.
[2020-10-17] MEDS: LACTATED RINGERS 1,000 ML 100 ML IV CONT (17:55)
[2020-10-17 18:54] LABS: Glucose Point of Care 100 mg/dl (65-105)
--- NOTE | 2020-10-17 18:54 | PM.IMHP ---
H&P: HPI History of Present Illness Date/Time: 10/17/20 18:54Thiwaldo is a 75-year-old female patient who is in [facility] facility at [facility] for non operative right hip fracture. The patient has congestive heart failure with an EF of 15-20% and is on a life vest. The emergency room today because of increased confusion. The patient was trying to tell me it was because of her pain medication. She stated that she recently was started on some depression medicine she was on a lower dose and did well and then they increased her dose and she feels like she is getting confused. The patient is typically alert orientated x4 but is orientated to herself and the month. The patient is acting inappropriate she is trying to put pepper and to her Tea we specifically told her that that was her T and we told her that it was pepper depend on her potatoes. She said she for got and thought it was a sweetener. Patient then for got that she was at [facility]. We attempted to reoriented her and let her know that she is at [facility] in ask her a few minutes later where she was and she stated again that she was at [facility] but it was in [place]. No head CT was performed at this time. The patient had a decreased urinary output for last 2 days and feeling as if she needed to avoid. She had no fever chills. The patient was found have UTI and started on Rocephin. She was given Tylenol and ceftriaxone in the emergency room. And she is typically anywhere from 1.0-1.33. On the date of service of 10/17/2020 Chief Complaint: Confusion Review of Systems Review of Systems: Narrative: Patient answering some question is aware of her surroundings but other times she is confused All systems reviewed & are unremarkable except as noted in HPI and below Constitutional: Constitutional: Reports as per HPI and Reports no additional constitutional complaints Eyes: Eyes: Reports as per HPI and Reports no additional eye complaints ENT: Reports system reviewed and no additional complaints, except as documented and Reports Normal hearing present Cardiovascular: Cardiovascular: Reports no additional cardiovascular complaints Respiratory: Respiratory: Reports no additional respiratory complaints and Reports no additional respiratory complaints Gastrointestinal: Gastrointestinal: Reports as per HPI and Reports no additional gastrointestinal complaints Musculoskeletal: Musculoskeletal: Reports no additional musculoskeletal complaints Integumentary/Breasts: Skin/Breast: Reports system reviewed and no additional complaints, except as docu and Reports as per HPI Neurologic: Reports system reviewed and no additional complaints, except as documented, Reports as per HPI and Reports Normal hearing present Psychiatric: Psychiatric: Reports no additional psychiatric complaints and Reports as per HPI Endocrine: Endocrine: Reports no additional endocrine complaints Hematologic/Lymphatic: Hematologic/Lymphatic: Reports no additional hematologic/lymphatic complaints Allergic/Immunologic: Allergic/Immunologic: Reports no additional allergic/immunologic complaints [facility] Past Medical History Medical History (Updated 10/17/20 @ 19:20 by Maryellen Church NP) Cardiomyopathy Echocardiogram June 2020: Left ventricular dimension severely enlarged, systolic function severely reduced EF of 15-20, mildly increased left ventricular wall thickness, grade 2 diastolic dysfunction, left atrial chamber severely enlarged, moderate mitral valve regurgitation, mild tricuspid valve regurgitation, moderate pulmonary hypertension with RVSP of 49 Combined systolic and diastolic congestive heart failure Diabetes mellitus History of CVA (cerebrovascular accident) Ongoing left lower extremity weakness HLD (hyperlipidemia) HTN (hypertension) Hypothyroidism, acquired NSTEMI (non-ST elevated myocardial infarction) (09/12/20) PAD (peripheral artery disease) Type 2 diabetes mellitus wi
[2020-10-17] MEDS: oxyCODONE/ACETAMINOPHEN (*CRX) 5-325 MG TABLET 1 TABLET PO (20:34)
[2020-10-17] MEDS: GABAPENTIN 300 MG CAPSULE PO (20:35)
[2020-10-17 21:37] LABS: Glucose Point of Care 114 mg/dl (65-105)
[2020-10-18] VITALS (10 sets, daily range): BP systolic 115–141; BP diastolic 54–84; PULSE 66–86; RESP 20; TEMP 36.6; O2SAT 96–98
[2020-10-18] MEDS: LACTATED RINGERS 1,000 ML 100 ML IV CONT (05:10)
[2020-10-18] MEDS: LEVOTHYROXINE SODIUM 100 MCG TABLET PO (05:12)
[2020-10-18 06:42] LABS: Basophils Absolute Auto 0.1 K/mm3 (0.0-0.1); Basophils Percent Auto 0.8 % (0.2-1.2); Eosinophils Absolute Auto 0.3 K/mm3 (0-0.3); Eosinophils Percent Auto 3.3 % (0-4.4); Hematocrit 39.3 % (37.0-47.0); Hemoglobin 12.6 g/dL (12.0-15.0); Immature Granulocyte Absolute 0.03 K/mm3 (0.00-0.031); Immature Granulocyte Percent A 0.4 % (0-0.5); Lymphocytes Absolute Auto 1.54 K/mm3 (0.9-3.2); Lymphocytes Percent Auto 20.6 % (18.3-44.2); Mean Corpuscular HGB Conc 32.1 g/dl (32-36); Mean Corpuscular Volume 90.6 fl (80-100); Mean Platelet Volume 9.8 fl (7.4-10.4); Monocytes Absolute Auto 0.8 K/mm3 (0.1-0.6); Monocytes Percent Auto 10.6 % (2.6-8.5); Neutrophils Absolute Auto 4.8 K/mm3 (1.3-6.7); Neutrophils Percent Auto 64.3 % (45.5-73.1); Platelet Count Result 176 k/mm3 (150-375); Red Blood Count 4.34 M/mm3 (4.2-5.4); Red Cell Distribution Width 14.8 % (11.5-14.5); White Blood Count 7.5 K/mm3 (4.5-10.0)
[2020-10-18 06:49] LABS: Anion Gap 11 mmol/L (8-16); Blood Urea Nitrogen 66 mg/dL (7-17); Calcium 10.1 mg/dL (8.4-10.2); Carbon Dioxide 24 mmol/L (22-30); Chloride 103 mmol/L (98-107); Estimated CRCL calculation 18 ml/min; Estimated Glomerular Filt Rate 19; Glucose 96 mg/dL (65-105); Lactate Dehydrogenase 375 U/L (313-618); Sodium 138 mmol/L (137-145)
[2020-10-18] MEDS: ASPIRIN 81 MG ENTERIC TABLET PO (08:39)
[2020-10-18] MEDS: CYCLOBENZAPRINE HCL 10 MG TABLET PO (08:39)
[2020-10-18] MEDS: FUROSEMIDE 20 MG TABLET PO (08:39)
[2020-10-18] MEDS: MAGNESIUM OXIDE 400 MG TABLET PO (08:39)
[2020-10-18] MEDS: CLOPIDOGREL BISULFATE 75 MG TABLET PO (08:39)
[2020-10-18] MEDS: polyethylene glycoL 3350 17 GM POWD.PACK PO (08:40)
[2020-10-18] MEDS: ROSUVASTATIN 10 MG TABLET PO (08:40)
[2020-10-18] MEDS: CYANOCOBALAMIN 500 MCG TABLET PO (08:40)
[2020-10-18] MEDS: ASCORBIC ACID 500 MG TABLET PO (08:40)
[2020-10-18] MEDS: ACETAMINOPHEN 325 MG TABLET 650 MG PO ×3 (08:42→17:32)
[2020-10-18 08:47] LABS: Glucose Point of Care 119 mg/dl (65-105)
--- NOTE | 2020-10-18 11:03 | PM.IMPN ---
Progress Note: A&P Assessment and Plan (1) UTI (urinary tract infection): Code(s): N39.0 - Urinary tract infection, site not specified Status: Acute Assessment and Plan: Continue with Rocephin. Pending blood and urine cultures. (2) Acute on chronic renal failure: Code(s): N17.9 - Acute kidney failure, unspecified; N18.9 - Chronic kidney disease, unspecified Status: Acute Assessment and Plan: I did not place any IV fluids on the patient this time as she has an EF between 15 and 20%. I fear that the patient would be easily overloaded with his he had ejection fraction. Patient has been eating and drinking here at this time. Hold metformin and any other nephrotoxic medications. Hold spironolactone. Patient's creatinine is down 2.9 and is typically around 1.3. (3) AMS (altered mental status): Code(s): R41.82 - Altered mental status, unspecified Status: Acute Assessment and Plan: Might be related to dehydration or the bacterial infection. I did order a CT of her brain as well. She has had a history of a stroke in the past. The patient stated that she recently started taking some depression medication and she felt fine on 1 dose but then they increased and that is when she noticed she was getting more confused. The patient is aware that she is acting bizarre. The patient stated ?I am acting crazy?. (4) CHF (congestive heart failure): Code(s): I50.9 - Heart failure, unspecified Status: Acute Assessment and Plan: It is reported that the patient has an EF around 15 or 20% and the patient has a life vest. Patient remains a full code. Continue with home medications. It looks like she is on lisinopril, metoprolol, and Lasix. I will hold her lisinopril for now. Due to her acute renal failure (5) Closed fracture of right hip: Code(s): S72.001A - Fracture of unspecified part of neck of right femur, initial encounter for closed fracture Status: Acute Assessment and Plan: Non operative. Continue with current pain medication. (6) Depression: Qualifiers: Depression Type: other depression Qualified Code(s): F32.89 - Other specified depressive episodes Code(s): F32.9 - Major depressive disorder, single episode, unspecified Status: Acute Assessment and Plan: Continue with current medications. (7) Hyperlipidemia associated with type 2 diabetes mellitus: Code(s): E11.69 - Type 2 diabetes mellitus with other specified complication; E78.5 - Hyperlipidemia, unspecified Status: Acute Assessment and Plan: Continue with home medications. Crestor (8) Hypothyroidism, acquired: Code(s): E03.9 - Hypothyroidism, unspecified Status: Acute Assessment and Plan: Check thyroid level and continue with levothyroxine. (9) Type 2 diabetes mellitus with hyperglycemia, with long-term current use of insulin: Code(s): E11.65 - Type 2 diabetes mellitus with hyperglycemia; Z79.4 - intermediate (current) use of insulin Status: Acute Assessment and Plan: Continue with basal insulin of Lantus and continue sliding scale insulin. Check A1c. Continue with gabapentin (10) HTN (hypertension): Code(s): I10 - Essential (primary) hypertension Status: Acute Assessment and Plan: Continue with metoprolol and Lasix (hold lisinopril). (11) History of CVA (cerebrovascular accident): Code(s): Z86.73 - Personal history of transient ischemic attack (TIA), and cerebral infarction without residual deficits Status: Acute Assessment and Plan: Patient has some left lower extremity residual with mild weakness. Continue with Plavix Will continue current plan of care and treatment. Will consult Ortho and cardiology. Subjective Date/time seen: 10/18/20 11:03 Patient was seen during the morning rounds today. No shortness of breath or chest pain. Pain control. No abdominal
--- NOTE | 2020-10-18 12:51 | PM.CNCAR ---
Assessment and Plan Additional Plan 75-year-old lady with: Severe left ventricular systolic dysfunction and coronary artery disease. She underwent recent PCI of the circumflex last month and from that perspective has been relatively stable. She enters the hospital with confusion that is probably multifactorial. She does appear to have a urinary infection as well as volume depletion and acute renal failure. For now I would hold all of her diuretics I am going to stop her furosemide as well. Hopefully with rehydration her renal function will improve I expected will. Following that we will make decisions about reinstituting heart failure medications. This would give us the opportunity to consider transitioning her to Entresto since her PING-inhibitor is going to be held for a while. This is a challenging situation then this lady has a very poor prognosis since the decision has been made to not repair her hip fracture. Mariano Weston MD [facility] History of Present Illness History of Present Illness Consult date/time: 10/18/20 12:51 Reason For Visit: ams,uti,urinary retention ,huang,cmp Narrative: This is a 75-year-old patient known to our practice who follows with Dr. antoine who has coronary disease and severe left ventricular systolic dysfunction. Patient was [facility] here [facility] been [facility] after recent discharge. She was [facility] here [facility] because of confusion and decreased level of orientation. The patient was found in the emergency room to have some evidence of a urinary tract infection she is being treated with antibiotics for this. She also was found to have acute renal insufficiency with elevation in her BUN and creatinine which are new comparison to recent chart that is here. She in this setting is being seen in consultation. She is known to have a recently diagnosed severe cardiomyopathy with left ventricular dilatation and very low ejection fraction. She also had some disease in the proximal circumflex coronary artery which was initially treated medically and then treated with PCI in the middle of August of this year. At that time she came in with some ischemic chest pain and had evidence of an acute coronary syndrome. She received two Orsiro drug-eluting stents to the circumflex with a good anatomical result. Unfortunately after that she had a fall and sustained a subcapital femoral fracture and was in the hospital here for that reason. Because of her heart disease risk for surgical repair of this was felt to be prohibitively high and non operative management was chosen by the patient and her family. That is the reason she was discharged to a [facility] facility from what I can see. She has been placed on some IV fluid with some lactated Ringer's she also has IV antibiotics ordered. Her spironolactone and PING-inhibitor have been placed on hold. She is not reporting any chest pain she has no shortness of breath or PND. Her chest x-ray on examination looks clear. Review of Systems Constitutional: Constitutional: Reports weakness Eyes: Eyes: Reports no additional eye complaints ENT: Reports system reviewed and no additional complaints, except as documented Cardiovascular: Cardiovascular: Reports no additional cardiovascular complaints Respiratory: Respiratory: Reports no additional respiratory complaints Gastrointestinal: Gastrointestinal: Reports no additional gastrointestinal complaints Musculoskeletal: Musculoskeletal: Reports no additional musculoskeletal complaints Integumentary/Breasts: Skin/Breast: Reports system reviewed and no additional complaints, except as docu Neurologic: Reports as per HPI Endocrine: Endocrine: Reports no additional endocrine complaints Hematologic/Lymphatic: Hematologic/Lymphatic: Reports no additional hematologic/lymphatic complaints Allergic/Immunologic: Allergic/Immunologic: Reports no additional allergic/immunologic complaints P
[2020-10-18 13:56] LABS: Glucose Point of Care 119 mg/dl (65-105)
[2020-10-18] MEDS: METOPROLOL SUCCINATE EXT REL 50 MG TABCR PO (17:36)
[2020-10-18] MEDS: LACTATED RINGERS 1,000 ML 75 ML IV CONT (17:42)
[2020-10-18 17:47] LABS: Glucose Point of Care 107 mg/dl (65-105)
[2020-10-18] MEDS: GABAPENTIN 300 MG CAPSULE PO (20:53)
[2020-10-18] MEDS: HEPARIN SODIUM 5,000 UNITS/ML VIAL 5000 UNITS SUB-Q (20:53)
[2020-10-18] MEDS: oxyCODONE/ACETAMINOPHEN (*CRX) 5-325 MG TABLET 1 TABLET PO (20:59)
[2020-10-19] VITALS (10 sets, daily range): BP systolic 127–136; BP diastolic 62–75; PULSE 64–86; RESP 16–22; TEMP 36.6–37; O2SAT 96–99
[2020-10-19 01:48] LABS: Glucose Point of Care 129 mg/dl (65-105)
[2020-10-19] MEDS: LEVOTHYROXINE SODIUM 100 MCG TABLET PO (06:14)
[2020-10-19] MEDS: LACTATED RINGERS 1,000 ML 75 ML IV CONT ×2 (06:14→21:11)
[2020-10-19 08:36] LABS: Glucose Point of Care 109 mg/dl (65-105)
[2020-10-19] MEDS: MAGNESIUM OXIDE 400 MG TABLET PO (09:56)
[2020-10-19] MEDS: CYCLOBENZAPRINE HCL 10 MG TABLET PO (09:56)
[2020-10-19] MEDS: CYANOCOBALAMIN 500 MCG TABLET PO (09:56)
[2020-10-19] MEDS: ASCORBIC ACID 500 MG TABLET PO (09:56)
[2020-10-19] MEDS: ROSUVASTATIN 10 MG TABLET PO (09:56)
[2020-10-19] MEDS: ASPIRIN 81 MG ENTERIC TABLET PO (09:56)
[2020-10-19] MEDS: CLOPIDOGREL BISULFATE 75 MG TABLET PO (09:56)
--- NOTE | 2020-10-19 09:56 | PM.IMPN ---
Progress Note: A&P Assessment and Plan (1) UTI (urinary tract infection): Code(s): N39.0 - Urinary tract infection, site not specified Status: Acute Assessment and Plan: Continue with Rocephin. Pending blood and urine cultures. (2) Acute on chronic renal failure: Code(s): N17.9 - Acute kidney failure, unspecified; N18.9 - Chronic kidney disease, unspecified Status: Acute Assessment and Plan: I did not place any IV fluids on the patient this time as she has an EF between 15 and 20%. I fear that the patient would be easily overloaded with his he had ejection fraction. Patient has been eating and drinking here at this time. Hold metformin and any other nephrotoxic medications. Hold spironolactone. Patient's creatinine is down 2.9 and is typically around 1.3. (3) AMS (altered mental status): Code(s): R41.82 - Altered mental status, unspecified Status: Acute Assessment and Plan: Might be related to dehydration or the bacterial infection. I did order a CT of her brain as well. She has had a history of a stroke in the past. The patient stated that she recently started taking some depression medication and she felt fine on 1 dose but then they increased and that is when she noticed she was getting more confused. The patient is aware that she is acting bizarre. The patient stated ?I am acting crazy?. (4) CHF (congestive heart failure): Code(s): I50.9 - Heart failure, unspecified Status: Acute Assessment and Plan: It is reported that the patient has an EF around 15 or 20% and the patient has a life vest. Patient remains a full code. Continue with home medications. It looks like she is on lisinopril, metoprolol, and Lasix. I will hold her lisinopril for now. Due to her acute renal failure (5) Closed fracture of right hip: Code(s): S72.001A - Fracture of unspecified part of neck of right femur, initial encounter for closed fracture Status: Acute Assessment and Plan: Non operative. Continue with current pain medication. (6) Depression: Qualifiers: Depression Type: other depression Qualified Code(s): F32.89 - Other specified depressive episodes Code(s): F32.9 - Major depressive disorder, single episode, unspecified Status: Acute Assessment and Plan: Continue with current medications. (7) Hyperlipidemia associated with type 2 diabetes mellitus: Code(s): E11.69 - Type 2 diabetes mellitus with other specified complication; E78.5 - Hyperlipidemia, unspecified Status: Acute Assessment and Plan: Continue with home medications. Crestor (8) Hypothyroidism, acquired: Code(s): E03.9 - Hypothyroidism, unspecified Status: Acute Assessment and Plan: Check thyroid level and continue with levothyroxine. (9) Type 2 diabetes mellitus with hyperglycemia, with long-term current use of insulin: Code(s): E11.65 - Type 2 diabetes mellitus with hyperglycemia; Z79.4 - USP (current) use of insulin Status: Acute Assessment and Plan: Continue with basal insulin of Lantus and continue sliding scale insulin. Check A1c. Continue with gabapentin (10) HTN (hypertension): Code(s): I10 - Essential (primary) hypertension Status: Acute Assessment and Plan: Continue with metoprolol and Lasix (hold lisinopril). (11) History of CVA (cerebrovascular accident): Code(s): Z86.73 - Personal history of transient ischemic attack (TIA), and cerebral infarction without residual deficits Status: Acute Assessment and Plan: Patient has some left lower extremity residual with mild weakness. Continue with Plavix Will continue current plan of care and treatment. Will consult Ortho and cardiology. 10/19/20 Patient more alert and awake. Urine cultures are pending, will continue with IV antibiotics. Cardiology consult noted. Also consult is pending. Will con
[2020-10-19] MEDS: HEPARIN SODIUM 5,000 UNITS/ML VIAL 5000 UNITS SUB-Q ×2 (09:57→21:12)
[2020-10-19] MEDS: polyethylene glycoL 3350 17 GM POWD.PACK PO (09:57)
[2020-10-19 12:34] LABS: Glucose Point of Care 114 mg/dl (65-105)
--- NOTE | 2020-10-19 14:08 | PM.PNCARD ---
Progress Note: A&P Additional Plan Continue the beta-salena hold diuretics and Isra inhibitor Recheck BMP tomorrow If her renal function is substantially improved I would probably recommend starting Entresto at that time Diuretics can be resumed gradually as needed Subjective Date/time seen: Date of service: 10/19/20 14:08 Interval history: 75-year-old lady with: Severe left ventricular systolic dysfunction. Admitted to the hospital with confusion and mental status alteration probably multifactorial. This is probably related to her narcotic analgesics related to her hip fracture but also acute kidney insufficiency related to her cardiomyopathy and heart failure medications. She feels better and looks more alert and appropriate this afternoon. She was asking me if I was going to operate on her hip fracture which indicates she does not seem to understand the decision that was made during the last hospitalization to manage this non operatively. No complaints consistent with decompensated heart failure Exam Const: General: comfortable and no acute distress Other: Frail elderly white female sleeping in the left lateral decubitus position. Upon awakening she appears to be comfortable has no cardiovascular complaints and essentially is alert and oriented. HENMT: Mouth: Yes dry mucous membranes Eyes: Sclera: sclerae normal Pupils: Equal, round and reactive pupils present Neck: Neck: supple and no JVD Thyroid: thyroid normal Resp: Effort & Inspection: normal respiratory effort Auscultation: clear to auscultation bilaterally Cardio: Rate: regular rate Rhythm: regular rhythm GI: Auscultation: normal bowel sounds Skin: General skin exam: normal color Neuro: Cranial nerves: Yes Equal, round and reactive pupils present Other: Patient is lethargic upon entering the room but after awakening she seems appropriate and answers questions and seems to be oriented. Extrem: Other: No edema adequate distal perfusion skin looks dry Objective Data Vital Signs Vital Signs: Vital Signs - 24 hr 10/18/20 16:00 10/18/20 17:36 10/18/20 20:00 Temperature Pulse Rate 81 86 85 Respiratory Rate Blood Pressure Pulse Oximetry 10/18/20 22:00 10/19/20 00:00 10/19/20 04:00 Temperature 36.6 C Pulse Rate 86 64 75 Respiratory Rate 20 Blood Pressure 141/57 H Pulse Oximetry 98 10/19/20 06:00 Temperature 36.6 C Pulse Rate 72 Respiratory Rate 16 Blood Pressure 127/62 Pulse Oximetry 98 Intake/Output Intake/Output: Intake & Output 10/16/20 10/17/20 10/18/20 10/19/20 23:59 23:59 23:59 23:59 Intake Total 50 3850 1440 Output Total 1500 1500 Balance 50 2350 -60 Meds/Results Medications: Active Medications Generic Name Dose Route Start Last Admin Trade Name Freq PRN Reason Stop Dose Admin Acetaminophen 650 mg 10/17/20 15:23 10/18/20 17:32 Acetaminophen 325 Mg Tablet PO 650 mg Q4H PRN Administration Mild Pain (1-3) or Fever Ascorbic Acid 500 mg 10/18/20 09:00 10/19/20 09:56 Ascorbic Acid 500 Mg Tablet PO 500 mg DAILY KIARRA Administration Aspirin 81 mg 10/18/20 09:00 10/19/20 09:56 Aspirin 81 Mg Enteric Tablet PO 81 mg DAILY KIARRA Administration Bisacodyl 10 mg 10/17/20 19:21 Bisacodyl 10 Mg Suppository RECTAL DAILY PRN Constipation Bisacodyl 5 mg 10/17/20 19:21 Bisacodyl 5 Mg Tablet Ec PO DAILY PRN Constipation Clopidogrel Bisulfate 75 mg 10/18/20 09:00 10/19/20 09:56 Clopidogrel Bisulfate 75 Mg Tablet PO 75 mg DAILY KIARRA Administration Cyanocobalamin 500 mcg 10/18/20 09:00 10/19/20 09:56 Cyanocobalamin 500 Mcg Tablet PO 500 mcg DAILY KIARRA Administration Cyclobenzaprine HCl 10 mg 10/18/20 09:00 10/19/20 09:56 Cyclobenzaprine Hcl 10 Mg Tablet PO 10 mg DAILY KIARRA Administration Dextrose 12.5 gm 10/17/20 19:03 Dextrose 50% 25 Gm/50 Ml Syringe IV PUSH PRN PRN Hypoglycemia
[2020-10-19 17:37] LABS: Glucose Point of Care 113 mg/dl (65-105)
[2020-10-19] MEDS: METOPROLOL SUCCINATE EXT REL 50 MG TABCR PO (18:59)
[2020-10-19] MEDS: oxyCODONE/ACETAMINOPHEN (*CRX) 5-325 MG TABLET 1 TABLET PO (21:12)
[2020-10-19] MEDS: GABAPENTIN 300 MG CAPSULE PO (21:14)
[2020-10-19 21:27] LABS: Glucose Point of Care 123 mg/dl (65-105)
[2020-10-20] VITALS (10 sets, daily range): BP systolic 93–125; BP diastolic 57–63; PULSE 65–93; RESP 14–18; TEMP 36.3–36.7; O2SAT 97–100
[2020-10-20] MEDS: LEVOTHYROXINE SODIUM 100 MCG TABLET PO (06:14)
[2020-10-20 06:39] LABS: Anion Gap 8 mmol/L (8-16); Blood Urea Nitrogen 31 mg/dL (7-17); Calcium 9.8 mg/dL (8.4-10.2); Carbon Dioxide 24 mmol/L (22-30); Chloride 105 mmol/L (98-107); Estimated CRCL calculation 33 ml/min; Estimated Glomerular Filt Rate 40; Glucose 110 mg/dL (65-105); Potassium 4.4 mmol/L (3.4-5.0); Sodium 137 mmol/L (137-145)
[2020-10-20 06:40] LABS: Hemoglobin 12.8 g/dL (12.0-15.0); Immature Platelet Fraction Pct 2.7 % (0.9-11.2); Mean Corpuscular HGB Conc 32.8 g/dl (32-36); Mean Corpuscular Hemoglobin 28.7 pg (26-34); Mean Corpuscular Volume 87.4 fl (80-100); Mean Platelet Volume 10.1 fl (7.4-10.4); Platelet Count Result 138 k/mm3 (150-375); Red Blood Count 4.46 M/mm3 (4.2-5.4); Red Cell Distribution Width 14.2 % (11.5-14.5); White Blood Count 5.7 K/mm3 (4.5-10.0)
--- NOTE | 2020-10-20 07:20 | PM.CNOR ---
Assessment and Plan Assessment and plan (1) Closed fracture of right hip: Qualifiers: Encounter type: subsequent encounter Fracture healing: with delayed healing Qualified Code(s): S72.001G - Fracture of unspecified part of neck of right femur, subsequent encounter for closed fracture with delayed healing Code(s): S72.001A - Fracture of unspecified part of neck of right femur, initial encounter for closed fracture Status: Acute Assessment and Plan: 75-year-old female with nonsurgical right femoral neck fracture. Will try to mobilize and at least get her into the chair. I will follow while she is in the hospital. History of Present Illness HPI Consult date: 10/20/20 Consult reason: fracture Chief complaint: ams,uti,urinary retention ,huang,cmp Narrative: 75-year-old female with a right femoral neck fracture. The this happened about three weeks ago. She has got significant multiple medical issues and this is being treated nonsurgically. She had another fall and was readmitted. [facility] Past Medical History Medical History Cardiomyopathy Echocardiogram June 2020: Left ventricular dimension severely enlarged, systolic function severely reduced EF of 15-20, mildly increased left ventricular wall thickness, grade 2 diastolic dysfunction, left atrial chamber severely enlarged, moderate mitral valve regurgitation, mild tricuspid valve regurgitation, moderate pulmonary hypertension with RVSP of 49 Combined systolic and diastolic congestive heart failure Diabetes mellitus History of CVA (cerebrovascular accident) Ongoing left lower extremity weakness HLD (hyperlipidemia) HTN (hypertension) Hypothyroidism, acquired NSTEMI (non-ST elevated myocardial infarction) (09/12/20) PAD (peripheral artery disease) Type 2 diabetes mellitus with hyperglycemia, with long-term current use of insulin 09/04/2020 hemoglobin A1c 8.4 Vitamin D deficiency, unspecified Surgical History Surgical History History of bladder surgery History of cardiac catheterization 07/08/2020 and 09/14/2020: LAD with 30-40% stenosis, 88 85% hazy stenosis proximal circumflex, right coronary artery with 50-60% disease of mild stenosis of about 40-50%, PCI of circumflex with orsiro drug-eluting stent x2 with resultant widely patent vessel S/P AAA (abdominal aortic aneurysm) repair Family History Family History Father Family history of congestive heart failure Family history of alcoholism Carcinoma of colon, Onset Age: 64 Mother Family history of diabetes mellitus in first degree relative Family history of liver disease Pancreatic cancer Sibling Family history of diabetes mellitus in first degree relative Malignant neoplasm of prostate Other Family history of cardiovascular disease Family history of primary malignant neoplasm of liver Social History Social History Social History: The patient is currently at [facility] for snf. She has 1 daughter who lives in [place]. 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 Primary care physician: Dr. Mariano Causey Code status: Full code (she does have advanced directives in place) she would not want a tracheostomy or PEG tube. Surrogate decision maker: Daughter Smoking packs per day: 0.5 Smoking cigarettes per day: 10.0 Years smoked: 60 Smoking pack-years: 30.00 Smoking status: Former smoker Tobacco type: cigarettes Smoking end date: 03/01/19 Alcohol intake: never Substance use: never Substance use type: does not use Gender identity (if verbalized by the patient): Female Spiritual care concerns: No Meds Home Medications and Allergies Home Medications Medication Instructions
[2020-10-20 08:25] LABS: Glucose Point of Care 98 mg/dl (65-105)
[2020-10-20] MEDS: LACTATED RINGERS 1,000 ML 75 ML IV CONT (09:45)
[2020-10-20] MEDS: CLOPIDOGREL BISULFATE 75 MG TABLET PO (09:50)
[2020-10-20] MEDS: polyethylene glycoL 3350 17 GM POWD.PACK PO (09:50)
[2020-10-20] MEDS: CYCLOBENZAPRINE HCL 10 MG TABLET PO (09:50)
[2020-10-20] MEDS: ASPIRIN 81 MG ENTERIC TABLET PO (09:50)
[2020-10-20] MEDS: CYANOCOBALAMIN 500 MCG TABLET PO (09:50)
[2020-10-20] MEDS: ROSUVASTATIN 10 MG TABLET PO (09:51)
[2020-10-20] MEDS: HEPARIN SODIUM 5,000 UNITS/ML VIAL 5000 UNITS SUB-Q ×2 (09:51→22:07)
[2020-10-20] MEDS: MAGNESIUM OXIDE 400 MG TABLET PO (09:51)
[2020-10-20] MEDS: ASCORBIC ACID 500 MG TABLET PO (09:51)
--- NOTE | 2020-10-20 10:29 | PM.PNCARD ---
Progress Note: A&P Assessment and Plan (1) AMS (altered mental status): Code(s): R41.82 - Altered mental status, unspecified Status: Acute Assessment and Plan: Probably multifactorial - UTI, narcotics. Improved with UTI treatment. Alert and oriented today. (2) CHF (congestive heart failure): Code(s): I50.9 - Heart failure, unspecified Status: Acute Assessment and Plan: History of ischemic cardiomyopathy identified June 2020. She was placed on medical therapy including lisinopril, metoprolol, furosemide. Lisinopril and furosemide have been on hold during this hospitalization due to her acute kidney injury. Her kidney function has not significantly improved over the past couple of days. Will start Entresto-monitor BMP daily. She does not have any evidence of volume overload. OK to continue to hold furosemide. Recent echo showed EF 20 - 25%. She is wearing her life vest. (3) Closed fracture of right hip: Qualifiers: Encounter type: subsequent encounter Fracture healing: with delayed healing Qualified Code(s): S72.001G - Fracture of unspecified part of neck of right femur, subsequent encounter for closed fracture with delayed healing Code(s): S72.001A - Fracture of unspecified part of neck of right femur, initial encounter for closed fracture Status: Acute Assessment and Plan: Closed fracture of the right hip following a fall several weeks ago. Being managed nonsurgically. Ortho following. (4) CAD (coronary artery disease): Qualifiers: Coronary Disease-Associated Artery/Lesion type: [place] artery [place] vs. transplanted heart: [place] heart Associated angina: without angina Qualified Code(s): I25.10 - Atherosclerotic heart disease of [place] coronary artery without angina pectoris Code(s): I25.10 - Atherosclerotic heart disease of [place] coronary artery without angina pectoris Status: Acute Assessment and Plan: History of CAD with NSTEMI in August 2020. PCI to the circumflex was performed at that time. She remains on medical therapy for CAD. Subjective Date/time seen: 10/20/20 10:29 Interval history: 75-year-old lady with: Severe left ventricular systolic dysfunction. Admitted to the hospital with confusion and mental status alteration probably multifactorial. This is probably related to her narcotic analgesics related to her hip fracture but also acute kidney insufficiency related to her cardiomyopathy and heart failure medications. She feels better and looks more alert and appropriate this afternoon. She was asking me if I was going to operate on her hip fracture which indicates she does not seem to understand the decision that was made during the last hospitalization to manage this non operatively. No complaints consistent with decompensated heart failure Date of service 10/20/2020: She is alert and oriented today. She is complaining of hip pain as well as pain on her sacrum where she has developed a pressure injury. She denies any shortness of breath, chest pain. Review of Systems Constitutional: Constitutional: Reports weakness Eyes: Eyes: Reports no additional eye complaints ENT: Reports system reviewed and no additional complaints, except as documented Cardiovascular: Cardiovascular: Reports no additional cardiovascular complaints Respiratory: Respiratory: Reports no additional respiratory complaints Gastrointestinal: Gastrointestinal: Reports no additional gastrointestinal complaints Musculoskeletal: Musculoskeletal: Reports no additional musculoskeletal complaints Integumentary/Breasts: Skin/Breast: Reports system reviewed and no additional complaints, except as docu Neurologic: Reports as per HPI and Reports weakness Endocrine: Endocrine: Reports no additional endocrine complaints Hematologic/Lymphatic: Hematologic/Lymphatic: Reports no additional hematologic/lymphatic complaints Allergic/Immunologic:
--- NOTE | 2020-10-20 11:31 | PM.IMPN ---
Progress Note: A&P Assessment and Plan (1) Acute on chronic renal failure: Code(s): N17.9 - Acute kidney failure, unspecified; N18.9 - Chronic kidney disease, unspecified Status: Acute Assessment and Plan: Monitor renal function and electrolytes (2) AMS (altered mental status): Code(s): R41.82 - Altered mental status, unspecified Status: Acute Assessment and Plan: Patient is alert and oriented no active complaints at this time (3) CHF (congestive heart failure): Code(s): I50.9 - Heart failure, unspecified Status: Acute Assessment and Plan: Aspirin, beta blockers, Entresto, and statin (4) Closed fracture of right hip: Qualifiers: Encounter type: subsequent encounter Fracture healing: with delayed healing Qualified Code(s): S72.001G - Fracture of unspecified part of neck of right femur, subsequent encounter for closed fracture with delayed healing Code(s): S72.001A - Fracture of unspecified part of neck of right femur, initial encounter for closed fracture Status: Acute Assessment and Plan: None social his management by orthopedic team, pain control (5) CAD (coronary artery disease): Qualifiers: Coronary Disease-Associated Artery/Lesion type: [place] artery [place] vs. transplanted heart: [place] heart Associated angina: without angina Qualified Code(s): I25.10 - Atherosclerotic heart disease of [place] coronary artery without angina pectoris Code(s): I25.10 - Atherosclerotic heart disease of [place] coronary artery without angina pectoris Status: Acute Assessment and Plan: Aspirin, beta blockers, Entresto, and statin Subjective Date/time seen: 10/20/20 11:31 Patient is resting comfortably no active complaints at this time Exam Const: General: cooperative and no acute distress HENMT: Head: normal to inspection Eyes: General: appearance normal, both eyes and all related structures Neck: Neck: normal visual inspection Chest: Chest palpation & inspection: normal inspection of the chest Resp: Effort & Inspection: normal respiratory effort Cardio: Jugular venous distension: no JVD Rate: regular rate GI: Inspection: normal to inspection and non-distended Objective Data Vital Signs Vital Signs: Vital Signs - 24 hr 10/19/20 12:00 10/19/20 14:00 10/19/20 16:00 Temperature 98.6 F Pulse Rate 74 82 82 Respiratory Rate 22 H Blood Pressure 136/75 Pulse Oximetry 99 06/21/21 18:59 10/19/20 20:00 10/19/20 22:00 Temperature 98.0 F Pulse Rate 86 78 80 Respiratory Rate 18 Blood Pressure 130/65 Pulse Oximetry 96 10/20/20 00:00 10/20/20 04:00 10/20/20 06:00 Temperature 97.6 F Pulse Rate 65 65 69 Respiratory Rate 18 Blood Pressure 125/59 L Pulse Oximetry 100 Intake/Output Intake/Output: Intake & Output 10/17/20 10/18/20 10/19/20 10/20/20 23:59 23:59 23:59 23:59 Intake Total 50 3850 4170 1280 Output Total 1500 3350 200 Balance 50 2350 820 1080 Meds/Results Medications: Active Medications Generic Name Dose Route Start Last Admin Trade Name Freq PRN Reason Stop Dose Admin Acetaminophen 650 mg 10/17/20 15:23 10/18/20 17:32 Acetaminophen 325 Mg Tablet PO 650 mg Q4H PRN Administration Mild Pain (1-3) or Fever Ascorbic Acid 500 mg 10/18/20 09:00 10/20/20 09:51 Ascorbic Acid 500 Mg Tablet PO 500 mg DAILY KIARRA Administration Aspirin 81 mg 10/18/20 09:00 10/20/20 09:50 Aspirin 81 Mg Enteric Tablet PO 81 mg DAILY KIARRA Administration Bisacodyl 10 mg 10/17/20 19:21 Bisacodyl 10 Mg Suppository RECTAL DAILY PRN Constipation Bisacodyl 5 mg 10/17/20 19:21 Bisacodyl 5 Mg Tablet Ec PO DAILY PRN Constipation Clopidogrel Bisulfate 75 mg 10/18/20 09:00 10/20/20 09:50 Clopidogrel Bisulfate 75 Mg Tablet PO 75 mg DAILY KIARRA Administration Cyanocobalamin 500 mcg 10/18/20 09:00 09/30
[2020-10-20] MEDS: SACUBITRIL/VALSARTAN 24-26 MG TABLET 1 TAB PO ×2 (11:47→22:07)
[2020-10-20 12:03] LABS: Glucose Point of Care 171 mg/dl (65-105)
--- NOTE | 2020-10-20 13:48 | PCSTNOTE ---
Please refer to the Bedside Swallow Evaluation in the EMR. Please note, silent aspiration cannot be ruled out at bedside.
[2020-10-20] MEDS: ACETAMINOPHEN 325 MG TABLET 650 MG PO ×2 (14:39→22:07)
[2020-10-20] MEDS: oxyCODONE/ACETAMINOPHEN (*CRX) 5-325 MG TABLET 1 TABLET PO (16:41)
[2020-10-20 17:14] LABS: Glucose Point of Care 200 mg/dl (65-105)
[2020-10-20] MEDS: METOPROLOL SUCCINATE EXT REL 50 MG TABCR PO (17:38)
[2020-10-20] MEDS: GABAPENTIN 300 MG CAPSULE PO (22:07)
[2020-10-21] VITALS (10 sets, daily range): BP systolic 100–123; BP diastolic 53–65; PULSE 65–103; RESP 16–20; TEMP 36.7–37; O2SAT 93–98
[2020-10-21] MEDS: LEVOTHYROXINE SODIUM 100 MCG TABLET PO (05:43)
[2020-10-21 06:19] LABS: Basophils Absolute Auto 0.1 K/mm3 (0.0-0.1); Basophils Percent Auto 1.4 % (0.2-1.2); Eosinophils Absolute Auto 0.4 K/mm3 (0-0.3); Eosinophils Percent Auto 6.8 % (0-4.4); Hematocrit 41.4 % (37.0-47.0); Hemoglobin 13.5 g/dL (12.0-15.0); Immature Granulocyte Absolute 0.02 K/mm3 (0.00-0.031); Immature Granulocyte Percent A 0.4 % (0-0.5); Lymphocytes Absolute Auto 1.94 K/mm3 (0.9-3.2); Lymphocytes Percent Auto 37.7 % (18.3-44.2); Mean Corpuscular HGB Conc 32.6 g/dl (32-36); Mean Corpuscular Hemoglobin 28.8 pg (26-34); Mean Corpuscular Volume 88.3 fl (80-100); Mean Platelet Volume 9.8 fl (7.4-10.4); Monocytes Absolute Auto 0.6 K/mm3 (0.1-0.6); Monocytes Percent Auto 10.7 % (2.6-8.5); Neutrophils Absolute Auto 2.2 K/mm3 (1.3-6.7); Platelet Count Result 133 k/mm3 (150-375); Red Blood Count 4.69 M/mm3 (4.2-5.4); Red Cell Distribution Width 14.3 % (11.5-14.5); White Blood Count 5.2 K/mm3 (4.5-10.0)
[2020-10-21 06:36] LABS: Anion Gap 7 mmol/L (8-16); Blood Urea Nitrogen 20 mg/dL (7-17); Calcium 9.5 mg/dL (8.4-10.2); Carbon Dioxide 25 mmol/L (22-30); Chloride 106 mmol/L (98-107); Creatine Kinase 56 U/L (30-135); Estimated CRCL calculation 39 ml/min; Estimated Glomerular Filt Rate 49; Glucose 140 mg/dL (65-105); Potassium 4.3 mmol/L (3.4-5.0); Sodium 138 mmol/L (137-145)
[2020-10-21 08:39] LABS: Glucose Point of Care 137 mg/dl (65-105)
[2020-10-21] MEDS: oxyCODONE/ACETAMINOPHEN (*CRX) 5-325 MG TABLET 1 TABLET PO ×2 (09:06→20:43)
[2020-10-21] MEDS: ASPIRIN 81 MG ENTERIC TABLET PO (09:07)
[2020-10-21] MEDS: CLOPIDOGREL BISULFATE 75 MG TABLET PO (09:07)
[2020-10-21] MEDS: ASCORBIC ACID 500 MG TABLET PO (09:07)
[2020-10-21] MEDS: HEPARIN SODIUM 5,000 UNITS/ML VIAL 5000 UNITS SUB-Q ×2 (09:08→20:44)
[2020-10-21] MEDS: polyethylene glycoL 3350 17 GM POWD.PACK PO (09:08)
[2020-10-21] MEDS: MAGNESIUM OXIDE 400 MG TABLET PO (09:08)
[2020-10-21] MEDS: CYANOCOBALAMIN 500 MCG TABLET PO (09:08)
[2020-10-21] MEDS: SACUBITRIL/VALSARTAN 24-26 MG TABLET 1 TAB PO ×2 (09:08→20:44)
[2020-10-21] MEDS: ROSUVASTATIN 10 MG TABLET PO (09:08)
[2020-10-21] MEDS: CYCLOBENZAPRINE HCL 10 MG TABLET PO (09:08)
--- NOTE | 2020-10-21 10:09 | PM.PNCARD ---
Progress Note: A&P Assessment and Plan (1) AMS (altered mental status): Code(s): R41.82 - Altered mental status, unspecified Status: Acute Assessment and Plan: Probably multifactorial - UTI, narcotics. Improved with UTI treatment. Alert and oriented today. (2) CHF (congestive heart failure): Code(s): I50.9 - Heart failure, unspecified Status: Acute Assessment and Plan: History of ischemic cardiomyopathy identified June 2020. She was placed on medical therapy including lisinopril, metoprolol, furosemide. Lisinopril and furosemide have been on hold during this hospitalization due to her acute kidney injury. Her kidney function has not significantly improved over the past couple of days. Started on Entresto 10/20/2020. Kidney function stable. Continue to monitor daily BMP. Will titrate as blood pressure allows. She does not have any evidence of volume overload. OK to continue to hold furosemide. Recent echo showed EF 20 - 25%. She is wearing her life vest. (3) Closed fracture of right hip: Qualifiers: Encounter type: subsequent encounter Fracture healing: with delayed healing Qualified Code(s): S72.001G - Fracture of unspecified part of neck of right femur, subsequent encounter for closed fracture with delayed healing Code(s): S72.001A - Fracture of unspecified part of neck of right femur, initial encounter for closed fracture Status: Acute Assessment and Plan: Closed fracture of the right hip following a fall several weeks ago. Being managed nonsurgically. Ortho following. (4) CAD (coronary artery disease): Qualifiers: Coronary Disease-Associated Artery/Lesion type: [place] artery [place] vs. transplanted heart: [place] heart Associated angina: without angina Qualified Code(s): I25.10 - Atherosclerotic heart disease of [place] coronary artery without angina pectoris Code(s): I25.10 - Atherosclerotic heart disease of [place] coronary artery without angina pectoris Status: Acute Assessment and Plan: History of CAD with NSTEMI in August 2020. PCI to the circumflex was performed at that time. She remains on medical therapy for CAD. Subjective Date/time seen: 10/21/20 10:09 Interval history: 75-year-old lady with: Severe left ventricular systolic dysfunction. Admitted to the hospital with confusion and mental status alteration probably multifactorial. This is probably related to her narcotic analgesics related to her hip fracture but also acute kidney insufficiency related to her cardiomyopathy and heart failure medications. She feels better and looks more alert and appropriate this afternoon. She was asking me if I was going to operate on her hip fracture which indicates she does not seem to understand the decision that was made during the last hospitalization to manage this non operatively. No complaints consistent with decompensated heart failure Date of service 10/20/2020: She is alert and oriented today. She is complaining of hip pain as well as pain on her sacrum where she has developed a pressure injury. She denies any shortness of breath, chest pain. Date of service 10/21/2020: Patient is complaining of some pain where she has a pressure injury. She is also complaining of some right hip pain. She is sitting up in the chair this morning. Blood pressure and kidney function are stable after starting Entresto. We will continue to monitor. She denies any shortness of breath, chest pain. Review of Systems Constitutional: Constitutional: Reports weakness Eyes: Eyes: Reports no additional eye complaints ENT: Reports system reviewed and no additional complaints, except as documented Cardiovascular: Cardiovascular: Reports no additional cardiovascular complaints Respiratory: Respiratory: Reports no additional respiratory complaints Gastrointestinal: Gastrointestinal: Reports no additional gastrointestinal complaints Mus
--- NOTE | 2020-10-21 10:11 | PM.IMPN ---
Progress Note: A&P Assessment and Plan (1) Acute on chronic renal failure: Code(s): N17.9 - Acute kidney failure, unspecified; N18.9 - Chronic kidney disease, unspecified Status: Acute Assessment and Plan: Monitor renal function and electrolytes, improving gradually. (2) AMS (altered mental status): Code(s): R41.82 - Altered mental status, unspecified Status: Acute Assessment and Plan: Patient is alert and oriented no active complaints at this time (3) CHF (congestive heart failure): Code(s): I50.9 - Heart failure, unspecified Status: Acute Assessment and Plan: Aspirin, beta blockers, Entresto, and statin (4) Closed fracture of right hip: Qualifiers: Encounter type: subsequent encounter Fracture healing: with delayed healing Qualified Code(s): S72.001G - Fracture of unspecified part of neck of right femur, subsequent encounter for closed fracture with delayed healing Code(s): S72.001A - Fracture of unspecified part of neck of right femur, initial encounter for closed fracture Status: Acute Assessment and Plan: None social his management by orthopedic team, pain control (5) CAD (coronary artery disease): Qualifiers: Coronary Disease-Associated Artery/Lesion type: [place] artery [place] vs. transplanted heart: [place] heart Associated angina: without angina Qualified Code(s): I25.10 - Atherosclerotic heart disease of [place] coronary artery without angina pectoris Code(s): I25.10 - Atherosclerotic heart disease of [place] coronary artery without angina pectoris Status: Acute Assessment and Plan: Aspirin, beta blockers, Entresto, and statin (6) Discharge planning issues: Code(s): Z02.9 - Encounter for administrative examinations, unspecified Status: Acute Assessment and Plan: Discuss employment evaluator/case manager about discharge to halfway facility/rehab Subjective Date/time seen: 10/21/20 10:11 Interval history: Patient is resting comfortably, no active complaints. Exam Const: General: cooperative and no acute distress HENMT: Head: normal to inspection Eyes: General: appearance normal, both eyes and all related structures Neck: Neck: normal visual inspection Chest: Chest palpation & inspection: normal inspection of the chest Resp: Effort & Inspection: normal respiratory effort Cardio: Jugular venous distension: no JVD Rate: regular rate GI: Inspection: normal to inspection and non-distended Objective Data Vital Signs Vital Signs: Vital Signs - 24 hr 10/20/20 12:00 10/20/20 14:00 10/20/20 16:00 Temperature 97.4 F L Pulse Rate 86 93 85 Respiratory Rate 14 Blood Pressure 93/63 L Pulse Oximetry 97 10/20/20 17:38 10/20/20 20:00 10/20/20 22:00 Temperature 98.0 F Pulse Rate 80 66 70 Respiratory Rate 18 Blood Pressure 111/57 L Pulse Oximetry 97 97 10/21/20 00:00 10/21/20 04:00 10/21/20 06:00 Temperature 98.6 F Pulse Rate 78 72 65 Respiratory Rate 16 Blood Pressure 123/53 L Pulse Oximetry 97 Intake/Output Intake/Output: Intake & Output 10/18/20 10/19/20 10/20/20 10/21/20 23:59 23:59 23:59 23:59 Intake Total 3850 4170 2190 400 Output Total 1500 3350 1700 650 Balance 2350 820 490 -250 Meds/Results Medications: Active Medications Generic Name Dose Route Start Last Admin Trade Name Freq PRN Reason Stop Dose Admin Acetaminophen 650 mg 10/17/20 15:23 10/20/20 22:07 Acetaminophen 325 Mg Tablet PO 650 mg Q4H PRN Administration Mild Pain (1-3) or Fever Ascorbic Acid 500 mg 10/18/20 09:00 10/21/20 09:07 Ascorbic Acid 500 Mg Tablet PO 500 mg DAILY KIARRA Administration Aspirin 81 mg 10/18/20 09:00 10/21/20 09:07 Aspirin 81 Mg Enteric Tablet PO 81 mg DAILY KIARRA Administration Bisacodyl 10 mg 10/17/20 19:21 Bisacodyl 10 Mg Suppository RECTAL DAILY PRN Constipation Bisacody
[2020-10-21] MEDS: INSULIN ASPART (*BKC) 100 UNITS/ML SUB-Q (12:13)
[2020-10-21 12:15] LABS: Glucose Point of Care 211 mg/dl (65-105)
[2020-10-21 17:34] LABS: Glucose Point of Care 129 mg/dl (65-105)
[2020-10-21] MEDS: METOPROLOL SUCCINATE EXT REL 50 MG TABCR PO (17:37)
[2020-10-21] MEDS: GABAPENTIN 300 MG CAPSULE PO (20:44)
[2020-10-21 22:21] LABS: Glucose Point of Care 212 mg/dl (65-105)
[2020-10-22] VITALS: PULSE 66
[2020-10-22 04:00] VITALS: PULSE 63
[2020-10-22 06:00] VITALS: BP 112/89; PULSE 73; RESP 18; TEMP 36.6; O2SAT 100
[2020-10-22] MEDS: LEVOTHYROXINE SODIUM 100 MCG TABLET PO (06:03)
[2020-10-22] MEDS: oxyCODONE/ACETAMINOPHEN (*CRX) 5-325 MG TABLET 1 TABLET PO (06:07)
[2020-10-22 08:00] VITALS: PULSE 69; O2SAT 100
[2020-10-22] MEDS: SACUBITRIL/VALSARTAN 24-26 MG TABLET 1 TAB PO (08:02)
[2020-10-22] MEDS: ASPIRIN 81 MG ENTERIC TABLET PO (08:03)
[2020-10-22] MEDS: polyethylene glycoL 3350 17 GM POWD.PACK PO (08:03)
[2020-10-22] MEDS: CYCLOBENZAPRINE HCL 10 MG TABLET PO (08:03)
[2020-10-22] MEDS: CYANOCOBALAMIN 500 MCG TABLET PO (08:03)
[2020-10-22] MEDS: MAGNESIUM OXIDE 400 MG TABLET PO (08:03)
[2020-10-22] MEDS: HEPARIN SODIUM 5,000 UNITS/ML VIAL 5000 UNITS SUB-Q (08:03)
[2020-10-22] MEDS: ROSUVASTATIN 10 MG TABLET PO (08:03)
[2020-10-22] MEDS: CLOPIDOGREL BISULFATE 75 MG TABLET PO (08:03)
[2020-10-22] MEDS: ASCORBIC ACID 500 MG TABLET PO (08:03)
--- NOTE | 2020-10-22 08:32 | PM.PNCARD ---
Progress Note: A&P Assessment and Plan (1) AMS (altered mental status): Code(s): R41.82 - Altered mental status, unspecified Status: Acute Assessment and Plan: Probably multifactorial - UTI, narcotics. This has resolved. Patient is alert and oriented. No confusion. (2) CHF (congestive heart failure): Code(s): I50.9 - Heart failure, unspecified Status: Acute Assessment and Plan: History of ischemic cardiomyopathy identified June 2020. She was placed on medical therapy including lisinopril, metoprolol, furosemide. Lisinopril and furosemide have been on hold during this hospitalization due to her acute kidney injury. Her kidney function has not significantly improved over the past couple of days. Started on Entresto 10/20/2020. Kidney function stable. Continue to monitor daily BMP. Will titrate as blood pressure allows. She does not have any evidence of volume overload. OK to continue to hold furosemide. Recent echo showed EF 20 - 25%. She is wearing her life vest. From cardiac perspective she is stable and appropriate for discharge. She will follow up as an outpatient in 3-4 weeks. (3) Closed fracture of right hip: Qualifiers: Encounter type: subsequent encounter Fracture healing: with delayed healing Qualified Code(s): S72.001G - Fracture of unspecified part of neck of right femur, subsequent encounter for closed fracture with delayed healing Code(s): S72.001A - Fracture of unspecified part of neck of right femur, initial encounter for closed fracture Status: Acute Assessment and Plan: Closed fracture of the right hip following a fall several weeks ago. Being managed nonsurgically. Ortho following. (4) CAD (coronary artery disease): Qualifiers: Associated angina: without angina Coronary Disease-Associated Artery/Lesion type: [place] artery [place] vs. transplanted heart: [place] heart Qualified Code(s): I25.10 - Atherosclerotic heart disease of [place] coronary artery without angina pectoris Code(s): I25.10 - Atherosclerotic heart disease of [place] coronary artery without angina pectoris Status: Acute Assessment and Plan: History of CAD with NSTEMI in August 2020. PCI to the circumflex was performed at that time. She remains on medical therapy for CAD. Subjective Date/time seen: 10/22/20 08:32 Interval history: 75-year-old lady with: Severe left ventricular systolic dysfunction. Admitted to the hospital with confusion and mental status alteration probably multifactorial. This is probably related to her narcotic analgesics related to her hip fracture but also acute kidney insufficiency related to her cardiomyopathy and heart failure medications. She feels better and looks more alert and appropriate this afternoon. She was asking me if I was going to operate on her hip fracture which indicates she does not seem to understand the decision that was made during the last hospitalization to manage this non operatively. No complaints consistent with decompensated heart failure Date of service 10/20/2020: She is alert and oriented today. She is complaining of hip pain as well as pain on her sacrum where she has developed a pressure injury. She denies any shortness of breath, chest pain. Date of service 10/21/2020: Patient is complaining of some pain where she has a pressure injury. She is also complaining of some right hip pain. She is sitting up in the chair this morning. Blood pressure and kidney function are stable after starting Entresto. We will continue to monitor. She denies any shortness of breath, chest pain. Date of service 10/22/2020: Patient is much more comfortable today. She is complaining of less pain as she says that she he found more comfortable with the sleep last night. She denies any shortness of breath, chest pain. Review of Systems Constitutional: Constitutional: Reports weakness Eyes: Eyes: Reports
[2020-10-22 08:35] LABS: Glucose Point of Care 134 mg/dl (65-105)
--- NOTE | 2020-10-22 10:36 | PM.DS ---
DS: Admitting Diagnosis Admitting Diagnosis Admitting Diagnosis: UTI, acute influenza, CHF, hip fracture DS: Discharge Diagnosis Discharge Diagnosis (1) Acute on chronic renal failure: Code(s): N17.9 - Acute kidney failure, unspecified; N18.9 - Chronic kidney disease, unspecified Status: Acute (2) YFN (acute kidney injury): Code(s): N17.9 - Acute kidney failure, unspecified Status: Acute (3) CHF (congestive heart failure): Code(s): I50.9 - Heart failure, unspecified Status: Acute (4) Closed fracture of right hip: Qualifiers: Encounter type: subsequent encounter Fracture healing: with delayed healing Qualified Code(s): S72.001G - Fracture of unspecified part of neck of right femur, subsequent encounter for closed fracture with delayed healing Code(s): S72.001A - Fracture of unspecified part of neck of right femur, initial encounter for closed fracture Status: Acute (5) Type 2 diabetes mellitus with hyperglycemia: Code(s): E11.65 - Type 2 diabetes mellitus with hyperglycemia Status: Acute DS: Summary Hospital Course Reason for hospitalization: Renal failure, heart failure, altered mental status Hospital Course: 75-year-old female patient who is in fci facility at [facility] for non operative right hip fracture. The patient has congestive heart failure with an EF of 15-20% and is on a life vest. The emergency room today because of increased confusion. Mental status improved during this hospitalization Renal failure improved during this hospitalization Lisinopril was held patient was started on Entresto CHF improved, cardiology were consulted UTI treated with Rocephin Patient will be discharged to fci facility in stable condition, patient is alert and oriented and agreeable with the discharge planning. Time Spent with Patient Time attestation: Total time spent providing and/or coordinating discharge services: Time spent: Greater than 30 minutes DS: Data Data Completed and Pending Labs on day of discharge: Labs from last 24 hours 10/22/20 10/21/20 10/21/20 08:28 20:48 17:32 POC Capillary Glucose 134 H 212 H 129 H 10/21/20 12:11 POC Capillary Glucose 211 H Discharge Plan Discharge Consulting providers: [facility] ; Mariano Weston ; Bart Johnson Discharging Clinician: Cuate Prater Patient Disposition: SNF Activity: as tolerated Diet: regular Patient Instructions: Pain Management in Older Adults (DC), Hip Fracture (GEN) Stand Alone Forms: General Discharge Information Follow-up/Referrals: Juhi Bolanos APN-C [Advanced Practice Nurse] - (You appointment is scheduled on 11/20/20 at 11:00. Please arrive 10 minutes prior to your appointment time.) Mariano Causey MD [Primary Care Provider] - 1 Week [facility] [Snf] - 1 Week Bart Johnson MD [Physician] - 2 Weeks Discharge Medications: New heparin (porcine) 5,000 unit/mL Solution 5,000 unit subcut Q12HR 30 Days Qty: 60 RF: 0 Entresto 24-26 mg Tablet 1 tablet PO Q12HR Qty: 60 RF: 0 Continued cyclobenzaprine 10 mg tablet 10 mg PO DAILY RF: 0 magnesium 200 mg tablet 400 mg PO DAILY RF: 0 aspirin 81 mg tablet,delayed release (DR/EC) 81 mg PO DAILY 30 Days Qty: 30 RF: 0 Lantus Solostar U-100 Insulin 100 unit/mL (3 mL) Insulin Pen 10 unit SUBCUT QPM RF: 0 oxycodone-acetaminophen 5-325 mg tablet 1 tablet PO Q8H PRN (Reason: pain) RF: 0 bisacodyl 10 mg suppository 10 mg RECTAL DAILY PRN (Reason: Constipation) RF: 0 metformin 1,000 mg tablet 1,000 mg PO DAILY RF: 0 bisacodyl [Laxative (bisacodyl)] 5 mg tablet,delayed release (DR/EC) 5 mg PO DAILY PRN (Reason: Constipation) RF: 0 rosuvastatin [Crestor] 10 mg tablet 10 mg PO DAILY RF: 0 gabapentin 300 mg capsule 300 mg PO HS RF: 0 cyanocobalamin (vitamin B-12) 500 mcg Tab
[2020-10-22 12:00] VITALS: PULSE 93
[2020-10-22 12:28] LABS: Glucose Point of Care 176 mg/dl (65-105)
[2020-10-22] MEDS: ACETAMINOPHEN 325 MG TABLET 650 MG PO (13:21)
[2020-10-22 17:26] LABS: Anion Gap 11 mmol/L (8-16); Blood Urea Nitrogen 19 mg/dL (7-17); Carbon Dioxide 20 mmol/L (22-30); Chloride 106 mmol/L (98-107); Estimated CRCL calculation 39 ml/min; Estimated Glomerular Filt Rate 49; Glucose 131 mg/dL (65-105); Potassium 4.3 mmol/L (3.4-5.0); Sodium 137 mmol/L (137-145)
== END 2020-10-22 14:50 | DRG 690 ==
LOC: ANHED 15:28 → ANH3MEDSUR 10-20 07:23
PROVIDERS: Emergency Medicine; Family Medicine; Internal Medicine; Nurse Practitioner; Admitting Provider Family Medicine; Emergency Provider Emergency Medicine; PCP Emergency Medicine; Visit Provider Nurse Practitioner
DX: N39.0 Urinary tract infection, site not specified (principal); N17.9 Acute kidney failure, unspecified; I13.0 Hypertensive heart and chronic kidney disease with heart failure and stage 1 through stage 4 chronic kidney disease, or unspecified chronic kidney disease; I50.22 Chronic systolic (congestive) heart failure; E11.22 Type 2 diabetes mellitus with diabetic chronic kidney disease; N18.9 Chronic kidney disease, unspecified; E11.51 Type 2 diabetes mellitus with diabetic peripheral angiopathy without gangrene; S72.001G Fracture of unspecified part of neck of right femur, subsequent encounter for closed fracture with delayed healing; E11.65 Type 2 diabetes mellitus with hyperglycemia; I25.5 Ischemic cardiomyopathy; R33.9 Retention of urine, unspecified; E11.69 Type 2 diabetes mellitus with other specified complication; E78.5 Hyperlipidemia, unspecified; R41.82 Altered mental status, unspecified; E03.9 Hypothyroidism, unspecified; F32.89 Other specified depressive episodes; I25.10 Atherosclerotic heart disease of native coronary artery without angina pectoris; E55.9 Vitamin D deficiency, unspecified; Z91.81 History of falling; I69.344 Monoplegia of lower limb following cerebral infarction affecting left non-dominant side; I25.2 Old myocardial infarction; Z79.4 Long term (current) use of insulin; Z79.899 Other long term (current) drug therapy; Z87.891 Personal history of nicotine dependence; Z95.5 Presence of coronary angioplasty implant and graft
CPT/HCPCS: 36415; 51701; 70450; 71046; 73502; 80048; 80053; 81001; 82550; 82570; 82948; 83615; 84300; 84443; 85025; 85027; 85055; 87077; 87086; 87088; 87186; 92610; 93005; 96365; 97110; 97161; 97530; 99285; A9270; J0696; J1644; J1815; J7120

== ENCOUNTER 2020-10-28 07:58 | Emergency (ER) | payer OTHER, SELFPAY ==
--- NOTE | ~2020-10-28 | XR_ITS ---
EXAMINATION: XR hip RT 2V w AP pelvis DATE: 10/28/2020 08:29 INDICATION: Right hip pain. TECHNIQUE: An anteroposterior view of the pelvis and 2 views of right hip were obtained. COMPARISON: Right hip radiograph 10/17/2020 FINDINGS: There is a subcapital fracture of proximal right femur. The distal fracture fragment demons trates 30 degrees varus angulation. There is a benign bone island in proximal left femur. There is mi ld right hip osteoarthritis. There is a stent graft in abdominal aorta and the common iliac arteries. IMPRESSION: 1. Stable subchondral fracture of proximal right femur. 2. Mild right hip osteoarthritis. Reviewed, dictated and finalized at location A.
[2020-10-28 08:07] VITALS: BP 109/66; PULSE 82; RESP 15; TEMP 36.6; O2SAT 100
--- NOTE | 2020-10-28 08:24 | PC.NURSE ---
Pt to xray.
[2020-10-28] MEDS: MORPHINE SULFATE (*CRX) 4 MG/ML INJ IV PUSH (08:51)
[2020-10-28 09:16] VITALS: BP 91/73; PULSE 78; RESP 15; O2SAT 99
--- NOTE | 2020-10-28 09:33 | ED.LOWEXIN ---
HPI - Extremity Injury (Lower) General Chief Complaint: Extremity Injury, Lower Stated Complaint: R HIP PAIN Time Seen by Provider: 10/28/20 07:59 History of Present Illness HPI Narrative: Patient is a 75-year-old female who presents ER with right hip pain. Patient suffered a fracture of her right hip several weeks ago. She has been in a half-way and is rehabbing. She reports recently they had her performing exercises on an exercise bike. This is led to increased pain. Outside x-ray showed fracture of the hip but it was unsure if there was any change from previous fracture. Patient has no new numbness or tingling. She reports aching around the right hip that is worsened with any type of movement. Related Data Home Medications Medication Instructions Recorded Confirmed cyclobenzaprine 10 mg tablet 10 mg PO DAILY 03/10/19 10/17/20 magnesium 200 mg tablet 400 mg PO DAILY tablet 09/16/19 10/17/20 ascorbic acid (vitamin C) 500 mg PO DAILY 07/06/20 10/17/20 cyanocobalamin (vitamin B-12) 500 mcg PO DAILY 07/06/20 10/17/20 gabapentin 300 mg PO HS 07/06/20 10/17/20 levothyroxine 100 mcg PO DAILY 07/06/20 10/17/20 metoprolol succinate 50 mg PO QPM 09/12/20 10/17/20 clopidogrel 75 mg PO DAILY 09/28/20 10/17/20 Lantus Solostar U-100 Insulin 10 unit SUBCUT QPM 10/17/20 10/17/20 bisacodyl 10 mg RECTAL DAILY PRN 10/17/20 10/17/20 bisacodyl [Laxative (bisacodyl)] 5 mg PO DAILY PRN 10/17/20 10/17/20 metformin 1,000 mg PO DAILY 10/17/20 10/17/20 oxycodone-acetaminophen 1 tablet PO Q8H PRN 10/17/20 10/17/20 rosuvastatin [Crestor] 10 mg PO DAILY 10/17/20 10/17/20 Allergies Allergy/AdvReac Type Severity Reaction Status Date / Time Penicillins Allergy Unknown Rash Verified 10/28/20 08:19 Review of Systems Review of Systems: All systems reviewed & are unremarkable except as noted in HPI and below Constitutional: Constitutional: Denies chills, Denies fever(s) and Denies weakness Cardiovascular: Cardiovascular: Denies chest pain and Denies radiating jaw, neck or arm pain Respiratory: Respiratory: Denies cough and Denies dyspnea Gastrointestinal: Gastrointestinal: Denies abdominal pain, Denies nausea and Denies vomiting Musculoskeletal: Musculoskeletal: Denies back pain, Reports arthralgias and Denies joint swelling [facility] Past Medical History Medical History Cardiomyopathy Echocardiogram June 2020: Left ventricular dimension severely enlarged, systolic function severely reduced EF of 15-20, mildly increased left ventricular wall thickness, grade 2 diastolic dysfunction, left atrial chamber severely enlarged, moderate mitral valve regurgitation, mild tricuspid valve regurgitation, moderate pulmonary hypertension with RVSP of 49 Combined systolic and diastolic congestive heart failure Diabetes mellitus History of CVA (cerebrovascular accident) Ongoing left lower extremity weakness HLD (hyperlipidemia) HTN (hypertension) Hypothyroidism, acquired NSTEMI (non-ST elevated myocardial infarction) (09/12/20) PAD (peripheral artery disease) Type 2 diabetes mellitus with hyperglycemia, with long-term current use of insulin 09/04/2020 hemoglobin A1c 8.4 Vitamin D deficiency, unspecified Surgical History Surgical History History of bladder surgery History of cardiac catheterization 07/08/2020 and 09/14/2020: LAD with 30-40% stenosis, 88 85% hazy stenosis proximal circumflex, right coronary artery with 50-60% disease of mild stenosis of about 40-50%, PCI of circumflex with orsiro drug-eluting stent x2 with resultant widely patent vessel S/P AAA (abdominal aortic aneurysm) repair Family History Family History Father Family history of congestive heart failure Family history of alcoholism Carcinoma of colon, Onset Age: 64 Mother Family history of diabetes mellitus in fi
[2020-10-28 09:44] VITALS: BP 105/56; PULSE 72; RESP 18; O2SAT 98
--- NOTE | 2020-10-28 09:54 | PC.NURSE ---
Report given to Alina Melvin. Awaiting EMS transportation [facility].
--- NOTE | 2020-10-28 09:58 | PC.NURSE ---
[facility] accepted transfer. ETA 1030.
[2020-10-28 10:58] VITALS: BP 105/66; PULSE 72; RESP 15; O2SAT 99
== END 2020-10-28 11:01 ==
PROVIDERS: Emergency Provider Emergency Medicine; PCP Emergency Medicine
DX: M25.551 Pain in right hip (principal); I11.0 Hypertensive heart disease with heart failure; I50.40 Unspecified combined systolic (congestive) and diastolic (congestive) heart failure; E11.9 Type 2 diabetes mellitus without complications; E03.9 Hypothyroidism, unspecified; I25.2 Old myocardial infarction; E78.5 Hyperlipidemia, unspecified; Z86.73 Personal history of transient ischemic attack (TIA), and cerebral infarction without residual deficits; Z87.891 Personal history of nicotine dependence
CPT/HCPCS: 73502; 96374; 99284; J2270

== ENCOUNTER 2021-01-02 13:14 | Emergency (ER) | payer OTHER, MEDICAID, SELFPAY ==
--- NOTE | ~2021-01-02 | CT_ITS ---
EXAMINATION: CT brain wo con DATE: 01/02/2021 14:11 INDICATION: Altered mental status TECHNIQUE: Computed tomography (CT) of the head was performed without intravenous contrast. Sagittal and coronal reconstructions were performed. The mA was adjusted according to patient size. Iterative reconstruction technique was employed. The dose-length product was 605.33 mGy-cm. COMPARISON: head CT dated 10/17/2020 FINDINGS: Change small to moderate-sized region of encephalomalacia in the left occipital lobe consistent with chronic infarct. Also unchanged are several old infarcts at the bilateral lentiform nuclei, the left caudate nucleus and the anterior limb of the left internal capsules/hager radiata. Additional small old infarct in the left cerebellar hemisphere. No acute intracranial hemorrhage, acute infarction or abnormal extra axial fluid collection. There is mild scattered white matter hypoattenuation consisten t with chronic small vessel ischemic disease. Symmetric prominence of the sulci consistent with moder ate age-appropriate diffuse cerebral volume loss. Ventricles are normal and symmetric. No mass/mass e ffect. Intracranial calcified cerebral atherosclerosis is noted. The orbits, paranasal sinuses and ma stoid air cells are normal. IMPRESSION: 1. No acute intracranial process. 2. Stable appearance of chronic infarcts and left occipital lobe, left cerebellar hemisphere, bilater al basal ganglia and anterior limb of the left internal capsule/hager radiata. Reviewed, dictated and finalized at location A. IMPRESSION: 1. No acute intracranial process. 2. Stable appearance of chronic infarcts and left occipital lobe, left cerebell ar hemisphere, bilateral basal ganglia and anterior limb of the left internal c apsule/hager radiata.
--- NOTE | ~2021-01-02 | XR_ITS ---
EXAMINATION: XR chest 1V DATE: 01/02/2021 14:07 INDICATION: Transient alteration of awareness. TECHNIQUE: frontal view of the chest was obtained. COMPARISON: Chest radiograph dated 10/17/2020 FINDINGS: New opacities in the bilateral lower lung zones, right greater than left. There is blunting at the co stophrenic angles consistent with small bilateral pleural effusions also likely right greater than le ft. Remainder of the lungs are clear with no pulmonary edema or pneumothorax. Cardiomegaly. Partially visualized abdominal aortic endoluminal stent grafting. IMPRESSION: 1. Opacities in the bilateral lower lung zones, right greater than left consistent with associated at electasis and/or pneumonia. 2. Small bilateral pleural effusions, also right greater than left. Reviewed, dictated and finalized at location A. IMPRESSION: 1. Opacities in the bilateral lower lung zones, right greater than left consist ent with associated atelectasis and/or pneumonia. 2. Small bilateral pleural effusions, also right greater than left.
--- NOTE | ~2021-01-02 | XR_ITS ---
EXAMINATION: XR hip RT 2V w AP pelvis DATE: 01/02/2021 14:07 INDICATION: Right hip pain TECHNIQUE: Anteroposterior view of the pelvis and anteroposterior and cross-table lateral views of th e right hip were obtained. COMPARISON: None. FINDINGS: Ununited subcapital fracture of the right femoral neck with progressive osteolysis now extending to t he basicervical aspect of the femoral neck. There is increasing proximal migration with external rota tion of the more distal femur relative to the remaining femoral head fragment which remains normally located within the right acetabulum. No new fractures identified. Bilateral hip joint spaces appear r elatively preserved. Mild bilateral sacroiliac osteoarthritis. Moderate to severe lower lumbar spondy losis. Stable appearance of a partially visualized abdominal aortobiiliac stent graft. Chronic bone i sland at the left greater trochanter which can be seen dating back to CT dated 02/06/2014. There is so me soft tissue swelling with subcutaneous edema overlying the right hip. Surgical clip at the left gr oin. IMPRESSION: 1. Ununited subcapital fracture of the proximal right femur with significant progression of osteolysi s of the majority of the right femoral neck. No acute osseous abnormality. Reviewed, dictated and finalized at location A. IMPRESSION: 1. Ununited subcapital fracture of the proximal right femur with significant pr ogression of osteolysis of the majority of the right femoral neck. No acute oss eous abnormality.
--- NOTE | ~2021-01-02 | CT_ITS ---
EXAMINATION: CTA abd aorta runoff DATE: 01/02/2021 17:09 INDICATION: Ischemia of the lower extremities. TECHNIQUE: Computed tomographic angiography (CTA) of the abdominal, pelvis, and both lower extremitie s was performed with 150 mL Omnipaque-350 intravenous contrast. Automated exposure control and iterat samantha reconstruction technique were employed. The dose-length product was 1019.33 mGy-cm. Maximum inten sity projection 3D-reconstructions of the arteries were created by the technologist on a separate wor kstation. 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 No end [place]. There is mild stenosis of the aorta within the stent graft. There is no significant stenosis o f superior mesenteric artery, celiac axis, or the renal arteries. 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 PELVIC VASCULATURE: There is severe stenosis of right internal iliac artery and moderate stenosis of left internal iliac artery. There is mild stenosis of the external iliac arteries. RIGHT LOWER EXTREMITY VASCULATURE: There is mild stenosis of right common femoral artery. There is no significant stenosis of the profun da femoris. There is intermittent moderate stenosis of right superficial femoral artery and popliteal artery. There is mild stenosis of the tibioperoneal trunk, anterior and posterior tibial arteries, a nd peroneal artery. There is no contrast in the distal calf due to the early phase of contrast opacif ication. LEFT LOWER EXTREMITY VASCULATURE: There is mild stenosis of left common femoral artery. There is no significant stenosis of the profund a femoris. There is intermittent moderate stenosis of left superficial femoral artery and popliteal a rtery and tibioperoneal trunk. There is mild stenosis of peroneal artery and the anterior and posteri or tibial arteries. There is no contrast in the distal calf due to the early phase of contrast opacif ication. ADDITIONAL FINDINGS: The visualized portions of the lung bases demonstrate airspace opacities and groundglass opacities in the right lower lobe and right middle lobe including cavitation in right lower lobe, consistent with pneumonia. There is mild atelectasis in left lower lobe. No pleural effusion. Cardiomegaly is noted. No pericardial effusion. The liver, gallbladder, spleen, pancreas, and right adrenal gland are tej l. There is chronic thickening of left adrenal gland, likely benign. There is cortical thinning of th e kidneys. There are cysts in the kidneys measuring up to 5.9 cm on the left. There is a 2 mm stone i n left kidney. There are no dilated loops of bowel. The appendix is normal. There are no pathological ly enlarged lymph nodes. There is no free intraperitoneal fluid. There is a comminuted fracture of ri ght femoral head and neck. IMPRESSION: 1. Pneumonia involving right middle lobe and right lower lobe with cavitation in right lower lobe. 2. Intermittent moderate stenosis of the bilateral superficial femoral arteries and popliteal arterie s and left tibioperoneal trunk. 3. Three-vessel runoff to at least the distal calves bilaterally. No contrast opacification the dista l calves due to the early phase of contrast opacification. 4. Comminuted fracture of right femoral head and neck. Reviewed, dictated and finalized at location A. IMPRESSION: 1. Pneumonia involving right middle lobe and right lower lobe with cavitation in right lower lobe. 2. Intermittent moderate stenosis of the bilateral superficial femoral arteries and popliteal arteries and left tibioperoneal trunk. 3. Three-vessel runoff to at least the distal calves bilaterally
[2021-01-02 13:11] VITALS: BP 120/97; PULSE 94; RESP 22; TEMP 36.4; O2SAT 99
--- NOTE | 2021-01-02 13:24 | PC.NURSE ---
Patient's sister in room with patient reports that the patient has been in the [facility] since September (right hip fracture). She reports that the patient's medications have been changed while she was in the penitentiary and that She's gone down hill since then . It is reported by the penitentiary that this patient is not a candidate for hip surgery.
--- NOTE | 2021-01-02 13:26 | ECG_ITS ---
Measurements Intervals Dema Rate: 92 P: W[place]: 0 QRS: -36 QRSD: 125 T: 119 QT: 372 QTc: 462 Interpretive Statements SINUS RHYTHM LEFT AXIS DEVIATION INTRAVENTRICULAR CONDUCTION DELAY DELAYED PRECORDIAL R/S TRANSITION ST-T WAVE ABNORMALITY IN HIGH LATERAL LEADS- CONSIDER ISCHEMIA ABNORMAL ECG Electronically Signed On 01-02-2021 17:17:33 CDT by Gary Quiñones D.O.
--- NOTE | 2021-01-02 13:55 | PC.NURSE ---
Talked to Milagros at 13:55 to add on BNP
[2021-01-02 14:02] LABS: Basophils Percent Auto 0.1 % (0.2-1.2); Hematocrit 39.2 % (37.0-47.0); Hemoglobin 12.2 g/dL (12.0-15.0); Immature Granulocyte Absolute 0.08 K/mm3 (0.00-0.031); Immature Granulocyte Percent A 0.7 % (0-0.5); Lymphocytes Absolute Auto 1.49 K/mm3 (0.9-3.2); Lymphocytes Percent Auto 12.5 % (18.3-44.2); Mean Corpuscular HGB Conc 31.1 g/dl (32-36); Mean Corpuscular Hemoglobin 30.2 pg (26-34); Mean Platelet Volume 11.7 fl (7.4-10.4); Monocytes Absolute Auto 0.6 K/mm3 (0.1-0.6); Monocytes Percent Auto 5.1 % (2.6-8.5); Neutrophils Absolute Auto 9.7 K/mm3 (1.3-6.7); Neutrophils Percent Auto 81.6 % (45.5-73.1); Nucleated Red Blood Cells Absolute Auto 0.2 K/mm3 (0.0-0.012); Nucleated Red Blood Cells Perc 1.7 % (0.0-0.2); Platelet Count Result 77 k/mm3 (150-375); Red Blood Count 4.04 M/mm3 (4.2-5.4); Red Cell Distribution Width 18.5 % (11.5-14.5); White Blood Count 11.9 K/mm3 (4.5-10.0)
--- NOTE | 2021-01-02 14:05 | ED.AMS ---
HPI - Altered Mental Status General Chief Complaint: Altered Mental Status Stated Complaint: ams, weakness Time Seen by Provider: 01/02/21 13:27 Source: patient and family Mode of arrival: EMS Limitations: no limitations History of Present Illness HPI narrative: This is a 75 year old female with cardiomyopathy, hypertension , DM and right hip fracture who presents for evaluation of altered mental status. Patient's family is at bedside. She states patient has been having increasing confusion and weakness over the past 3 weeks. Patient has a right hip fracture that occurred 3 months ago, and she opted for nonsurgical treatment. She has been at half-way receiving physical therapy and pain control. Her family reports a few weeks ago patient increased her weight bearing in her physical therapy and patient has been having worsening pain. She was taking percocet for her pain but her family states she was switched to norco with muscle relaxers. They also reports patient was placed on an antidepressant. Her family states she has noticed decline in patient since those medication changes. PAtient is having issues with nausea and vomiting with taking her medications. PAtient was also evaluated at [place] last night for feet discoloration and bilateral feet swelling. Patient was discharged with outpatient vascular follow up . Today nursing staff reports patient was not making sense in her conversation with them. Patient states she did not want to have surgery. She states she did not want intubation. She stated she did not want rescusitation. Related Data Home Medications Medication Instructions Recorded Confirmed ascorbic acid (vitamin C) 500 mg PO DAILY 07/06/20 10/17/20 cyanocobalamin (vitamin B-12) 500 mcg PO DAILY 07/06/20 10/17/20 gabapentin 300 mg PO HS 07/06/20 10/17/20 levothyroxine 100 mcg PO DAILY 07/06/20 10/17/20 metoprolol succinate 50 mg PO QPM 09/12/20 10/17/20 clopidogrel 75 mg PO DAILY 09/28/20 10/17/20 Lantus Solostar U-100 Insulin 10 unit SUBCUT QPM 10/17/20 10/17/20 bisacodyl 10 mg RECTAL DAILY PRN 10/17/20 10/17/20 metformin 1,000 mg PO DAILY 10/17/20 10/17/20 rosuvastatin [Crestor] 10 mg PO DAILY 10/17/20 10/17/20 acetaminophen 100 mg PO QID PRN 01/02/21 carboxymethylcellulose sodium 1 drp EACH EYE TID 01/02/21 [Refresh Plus] hydrocodone-acetaminophen [[place]] 01/02/21 01/02/21 magnesium oxide 400 mg PO DAILY 01/02/21 methylprednisolone [Medrol] 4 mg PO TID 01/02/21 ondansetron 4 mg PO Q8H 01/02/21 sertraline 25 mg PO DAILY 01/02/21 Allergies Allergy/AdvReac Type Severity Reaction Status Date / Time Penicillins Allergy Unknown Rash Verified 01/02/21 16:08 Review of Systems Review of Systems: All systems reviewed & are unremarkable except as noted in HPI and below Constitutional: Constitutional: Denies chills and Denies fever(s) Cardiovascular: Cardiovascular: Denies chest pain Respiratory: Respiratory: Denies cough and Denies dyspnea Gastrointestinal: Gastrointestinal: Denies abdominal pain, Denies nausea and Denies vomiting Musculoskeletal: Musculoskeletal: Reports arthralgias (right hip pain) Neurologic: Denies headache(s) and Denies numbness PMFSH Past Medical History Medical History Cardiomyopathy Echocardiogram June 2020: Left ventricular dimension severely enlarged, systolic function severely reduced EF of 15-20, mildly increased left ventricular wall thickness, grade 2 diastolic dysfunction, left atrial chamber severely enlarged, moderate mitral valve regurgitation, mild tricuspid valve regurgitation, moderate pulmonary hypertension with RVSP of 49 Combined systolic and diastolic congestive heart failure Diabetes mellitus History of CVA (cerebrovascular accident) Ongoing left lower extremity weakness HLD (hyperlipidemia) HTN (hypertension) Hypothyroidism, acquired NSTEMI (non-ST elevated myocardial infarction) (09/12
--- NOTE | 2021-01-02 14:10 | PCRCNOTE ---
ARRIVED TO DRAW ABG; PT. WAS NOT IN THE ROOM.
[2021-01-02 14:26] LABS: Alveolar/Arterial O2 Gradient 35.8 mmHg; Base Excess ABG -5.6 mEq/l (+/-2.0); Carboxyhemoglobin 0.3 % THb (0-2.0); Fractional Inspired Oxygen 21 %; Methemoglobin ABG 0.3 %THb (0-1.5); Oxygen Content ABG 16.6 %vol (16.0-22.0); Oxygen Saturation ABG 95.8 % (95.0-100.0); Oxyhemoglobin 93.3 % THb (90.0-100.0); PCO2 ABG 29.7 mmHg (35.0-45.0); PO2 ABG 78.4 mmHg (80.0-100.0); PO2 FiO2 Ratio Arterial Blood 3.73 %; Reduced Hemoglobin 6.1 %THb (0-5.0); Total Hemoglobin 12.6 g/dL (12.0-18.0); pH ABG 7.401 (7.350-7.450)
[2021-01-02 14:26] LABS: Alanine Aminotransferase 225 U/L (4-35); Albumin Level 3.6 g/dL (3.5-5.1); Alkaline Phosphatase 196 U/L (38-126); Anion Gap 11 mmol/L (8-16); Aspartate Amino Transferase 567 U/L (14-36); Bilirubin,Total 1.3 mg/dL (0.2-1.3); Blood Urea Nitrogen 66 mg/dL (7-17); Calcium 9.1 mg/dL (8.4-10.2); Carbon Dioxide 22 mmol/L (22-30); Chloride 104 mmol/L (98-107); Estimated CRCL calculation 26 ml/min; Estimated Glomerular Filt Rate 32; Glucose 192 mg/dL (65-110); Potassium 5.1 mmol/L (3.4-5.0); Sodium 137 mmol/L (137-145)
[2021-01-02 14:27] LABS: Device ROOM AIR; Site Drawn LEFT BRACHIAL
[2021-01-02 14:57] LABS: Add Urine Microscopic? YES; Appearance Urine Cloudy (Clear); Bacteria Urine 4+ /hpf; Bilirubin Urine Negative (Negative); Blood Urine 3+ (Negative); Color Urine Amber (Yellow); Glucose Urine UA Negative (Negative); Granular Casts Urine 20-29 /lpf; Ketones Urine Trace mg/dL (Negative); Leukocyte Esterase Ur Trace LEU/UL (Negative); Nitrate Urine Negative (Negative); Protein Urine 3+ mg/dL (Negative); Specific Grav Ur 1.025 (1.001-1.035); Squamous Epithelial Cell Urine Moderate /hpf (Few); WBC Urine 31-50 /hpf
[2021-01-02 15:08] LABS: Acetaminophen < 10 ug/mL (10-30); Ammonia < 9 umol/L (9-30)
[2021-01-02 15:10] LABS: NT Pro B Type Natriuretic Pept > 35000 pg/mL (5-100)
[2021-01-02 15:29] VITALS: BP 119/69; PULSE 93; RESP 20; TEMP 35.9; O2SAT 100
[2021-01-02 15:29] LABS: Amphetamine Screen Urine Negative (Negative); Barbiturate Screen Urine Negative (Negative); Benzodiazepines Screen Urine Negative (Negative); Cannabinoid Screen Urine Negative (Negative); Cocaine Screen Urine Negative (Negative); Methadone Screen Urine Negative (Negative); Opiate Screen Urine Positive (Negative); Phencyclidine Screen Urine Negative (Negative)
--- NOTE | 2021-01-02 15:47 | PC.NURSE ---
Patient has palpable femoral pulse on right side. Right popiteal and posterior tibial pulses found with doppler and marked. EDP using ultrasound and was unable to locate right dorsalis pedis pulse. Patient is able to move her feet and wiggle toes bilaterally. She reports pain to the right hip, worse with movement. She is unable to find position of comfort at this time.
[2021-01-02 16:01] VITALS: BP 118/85; PULSE 94; RESP 22; O2SAT 100
[2021-01-02] MEDS: SODIUM CHLORIDE 0.9% IV 500 ML 999 ML IV CONT (16:03)
--- NOTE | 2021-01-02 16:23 | PC.NURSE ---
Dominga from CT calls and reports will need an 18g IV in the AC for ordered test.
[2021-01-02 17:02] LABS: Hepatitis B Surface Antigen Negative (Negative)
[2021-01-02 17:08] LABS: HAV RESULT Negative (Negative); Hepatitis B Core IgM Result Negative (Negative)
[2021-01-02 17:19] LABS: Hepatitis C Virus Antibody Negative (Negative)
[2021-01-02 17:48] LABS: Glucose Point of Care 176 mg/dl (65-105)
[2021-01-02 17:50] LABS: Creatine Kinase 397 U/L (30-135)
[2021-01-02] MEDS: ONDANSETRON INJ 4 MG/2 ML VIAL IV PUSH (18:15)
[2021-01-02] MEDS: HYDROmorphone HCL INJ (*CRX) 1 MG/ML SYR 0.5 MG IV PUSH (18:17)
--- NOTE | 2021-01-02 18:20 | PC.NURSE ---
Patient placed on oxygen at 2 liters when pain medication was administered. She remained on ekg, pulse ox, and blood pressure monitor.
[2021-01-02 18:29] VITALS: BP 126/55; PULSE 94; RESP 18; TEMP 36.4; O2SAT 99
--- NOTE | 2021-01-02 20:28 | PC.NURSE ---
I was called into the room at 192 by core oven tender who states patient is not breathing well. Patient was noted to have agonal breathing at this time. Assistance was called and EDP was called to the room. Breathing was assisted by bag valve mask by SANDRA Shelby. Patient was noted to have a palpable carotid and femoral pulse. Crash cart in room at 192 and patient was placed on pads at that time. Pulse still present and breathing supported by BVM by SANDRA Shelby. Patient was noted to become pulseless at 1926 and compressions were started. At 193 the patient's family requested that the ED Provider discontinue CPR and ventilation. See Code sheet for full treatment outline
--- NOTE | 2021-01-02 20:40 | PC.NURSE ---
MTS and medical practice assistant were contacted by the ED Charge nurse.
== END 2021-01-02 22:23 | disposition expired ==
PROVIDERS: Emergency Medicine; Emergency Provider General Practice; PCP Emergency Medicine
DX: N17.9 Acute kidney failure, unspecified (principal); N18.9 Chronic kidney disease, unspecified; J18.9 Pneumonia, unspecified organism; S72.011K Unspecified intracapsular fracture of right femur, subsequent encounter for closed fracture with nonunion; R74.01 Elevation of levels of liver transaminase levels; E11.22 Type 2 diabetes mellitus with diabetic chronic kidney disease; I50.40 Unspecified combined systolic (congestive) and diastolic (congestive) heart failure; I13.0 Hypertensive heart and chronic kidney disease with heart failure and stage 1 through stage 4 chronic kidney disease, or unspecified chronic kidney disease; I25.2 Old myocardial infarction; I42.9 Cardiomyopathy, unspecified; E11.51 Type 2 diabetes mellitus with diabetic peripheral angiopathy without gangrene; E03.9 Hypothyroidism, unspecified; E55.9 Vitamin D deficiency, unspecified; Z79.82 Long term (current) use of aspirin; Z79.84 Long term (current) use of oral hypoglycemic drugs; Z79.899 Other long term (current) drug therapy; Z87.891 Personal history of nicotine dependence; I45.9 Conduction disorder, unspecified; R94.31 Abnormal electrocardiogram [ECG] [EKG]; I70.203 Unspecified atherosclerosis of native arteries of extremities, bilateral legs; X58.XXXD Exposure to other specified factors, subsequent encounter
CPT/HCPCS: 36415; 36600; 51701; 70450; 71045; 73502; 75635; 80053; 80074; 80307; 81001; 82140; 82375; 82550; 82805; 82948; 83050; 83880; 85025; 87077; 87086; 87088; 87186; 92950; 93005; 96361; 96365; 96367; 96375; 99285; J0171; J0456; J0461; J0696; J1170; J2310; J2405; J7040; Q9967